=== PATIENT | female | born 1975 | race Caucasian/White ===

== ENCOUNTER → 2018-05-30 10:30 | Outpatient (CLI) | payer OTHER, SELFPAY ==
[2018-05-28 08:16] VITALS: BMI 27.5
--- NOTE | 2018-05-30 10:40 | US_ITS ---
STUDY: ULTRASOUND TRANSVAGINAL CLINICAL: Female, 43 years old. IUD placement TECHNIQUE: Transvaginal COMPARISON: None. FINDINGS: Normal uterine size measuring 9.5 x 4.8 x 4.4 cm in maximal craniocaudal dimension. There are no myometrial masses. Normal endometrial thickness measuring 4.4 mm. There are no endometrial masses, and there is no fluid in the endometrial cavity. Intrauterine contraceptive device identified, approximately 4.3 cm from the external os. There is a small nabothian cyst. Normal right ovary, measuring 2.9 x 2.2 x 2.1 cm. There are multiple follicles without a dominant cyst. Normal left ovary, measuring 2.5 x 2.1 x 1.8 cm. There are multiple follicles without a dominant cyst. There is no free fluid in the pelvis. Visualized urinary bladder is normal. US/Pelvic (Non ) IMPRESSION: 1. Intrauterine contraceptive device, as above. Electronically Signed: Lawrence Hearn MD at 12:38 EST , Service support ,
--- NOTE | 2018-05-30 10:40 | US_ITS ---
STUDY: ULTRASOUND TRANSVAGINAL CLINICAL: Female, 43 years old. IUD placement TECHNIQUE: Transvaginal COMPARISON: None. FINDINGS: Normal uterine size measuring 9.5 x 4.8 x 4.4 cm in maximal craniocaudal dimension. There are no myometrial masses. Normal endometrial thickness measuring 4.4 mm. There are no endometrial masses, and there is no fluid in the endometrial cavity. Intrauterine contraceptive device identified, approximately 4.3 cm from the external os. There is a small nabothian cyst. Normal right ovary, measuring 2.9 x 2.2 x 2.1 cm. There are multiple follicles without a dominant cyst. Normal left ovary, measuring 2.5 x 2.1 x 1.8 cm. There are multiple follicles without a dominant cyst. There is no free fluid in the pelvis. Visualized urinary bladder is normal. US/Transvaginal Non- IMPRESSION: 1. Intrauterine contraceptive device, as above. Electronically Signed: Lawrence Hearn MD at 12:38 EST , Service support ,
== END ==
PROVIDERS: Family Provider Family Medicine; PCP Family Medicine; Referring Provider Nurse Practitioner Women's Health; Visit Provider Nurse Practitioner Women's Health
DX: Z30.431 Encounter for routine checking of intrauterine contraceptive device (principal)
CPT/HCPCS: 76830; 76856

== ENCOUNTER → 2018-06-24 09:17 | Outpatient (CLI) | payer OTHER, SELFPAY ==
[2018-05-28 08:16] VITALS: BMI 27.5
[2018-06-04 13:02] VITALS: BMI 26.7
--- NOTE | 2018-06-24 09:26 | BI_ITS ---
MAMMOGRAPHY - BILATERAL SCREENING REASON FOR EXAM: Female, 43 years old. Routine annual screening examination. PERTINENT HISTORY: Non-contributory. TECHNIQUE: Digital bilateral breast davian (3D mammographic acquisition) in the CC and MLO projections. 2-D mediolateral oblique (MLO) and craniocaudad (CC) views of both breasts were obtained. CAD: Full Field Digital Mammography with Computer Added Detection was performed. COMPARISON: Comparison is made with prior outside examination dated March 08, 2016. FINDINGS: Breast Composition: There are scattered areas of fibroglandular density. There are no dominant masses or suspicious calcifications. Stable small bilateral axillary lymph nodes. No other significant abnormalities are identified. There has been no significant change since the prior study. BI/SCREEN MAMM (CAD) W/DAVIAN BILAT IMPRESSION: Stable bilateral screening mammogram. Yearly follow-up mammogram recommended. (A) ASSESSMENT CATEGORY: BIRADS Category 2: Benign. A letter regarding these results will be sent to the patient by the facility within 30 days. Approximately 10% of breast cancers are not detected by mammography. A normal mammogram should not delay biopsy of a clinically suspicious abnormality. [id number] Electronically Signed: Kj Armstrong, at 10:38 EST , Service support ,
== END ==
PROVIDERS: Family Provider Family Medicine; PCP Family Medicine; Referring Provider Nurse Practitioner Women's Health; Visit Provider Nurse Practitioner Women's Health
DX: Z12.31 Encounter for screening mammogram for malignant neoplasm of breast (principal)
CPT/HCPCS: 77063; 77067

== ENCOUNTER → 2018-07-01 08:03 | Outpatient (CLI) | payer OTHER, SELFPAY ==
[2018-06-04 13:02] VITALS: BMI 26.7
[2018-07-01 09:43] LABS: Free T3 2.8 pg/mL (2.18-3.98); T4 Free Direct 1.53 ng/dL (0.76-1.46); Thyroid Stim Hormone (TSH) 0.06 uIU/mL (0.358-3.74)
== END ==
LOC: PAVLAB 08:06
PROVIDERS: Family Provider Family Medicine; PCP Family Medicine; Referring Provider Family Medicine; Visit Provider Family Medicine
DX: E03.9 Hypothyroidism, unspecified (principal)
CPT/HCPCS: 36415; 84439; 84443; 84481

== ENCOUNTER 2018-07-02 08:48 | Day surgery (SDC) | payer OTHER, SELFPAY ==
[2018-06-04 13:02] VITALS: BMI 26.7
--- NOTE | 2018-07-01 11:41 | PCM.HPOB.BLA ---
- Problem List (1) Malpositioned IUD Status: Acute History and Physical Date of Admission: 07/02/18 Intake Vital Signs 06/04/18 Height 5 ft 11 in 06/04/18 Weight: 192 lb 06/04/18 Body Mass Index (BMI) 26.7 06/04/18 Blood Pressure 152/100 H Intake Visit Reasons: iud removal Senior Principal Required: No Allergies No Known Allergies Allergy (Verified 06/04/18 13:02) Medications Levothyroxine [Synthroid] 125 mcg PO DAILY 01/16/15 [History Confirmed 06/04/18] levonorgestrel 20 mcg/24 hr (5 years) intrauterine device 1 insert INTRAUTERINE ONCE 05/28/18 [History Confirmed 06/04/18] Is last menstrual period known: No Post menopausal: No Patient : No : No PFSH PFSH Medical History Hypothyroidism (Chronic) Surgical History History of cholecystectomy (Resolved) S/P laparoscopy (Resolved) s/p right leg surgery (Resolved) Family History Uncle Colon cancer Lung cancer Mother Diabetes Grandmother Diabetes Congestive heart failure Grandfather Diabetes Social History Smoking Status: Never smoker alcohol intake: current details: glass of wine nightly substance use type: does not use caffeine: Yes what type of physical activity do you participate in: none seatbelt use: always do you feel safe at home: Yes additional social history: - H Surgery Pregancy History 2 Elective abortions Hx Para 1 Spontaneous abortions Hx # Term Pregnancies Ectopic pregnancies Hx # Pregnancies Multiple births # of living children Past Pregnancies Del. Date Name GA/Weeks Outcome Route Bth Weight Gen Labor Lgth Anesthesia Del Locatn Provider FOB Unknown HPI iud removal: Details: KAVIN GUERRERO is a 43 year old who presents for preop appointment and attempt at iud removal. attempt was unsuccessful, therefore we will schedule her for hysteroscopic removal. ROS Const Constitutional: Reports system reviewed and no additional complaints, except as docu; denies chills, fever(s), weight gain or weight loss GI GI: Reports as per HPI; denies abdominal pain, bloating, constipation, cramping, nausea or vomiting : Reports as per HPI; denies urinary frequency, urinary incontinence, urinary urgency, vaginal discharge or vaginal dryness Exam Const General: cooperative, healthy appearing, comfortable, well developed Orientation: alert [facility] Head: normal to inspection Resp Effort & Inspection: normal respiratory effort GI Inspection: normal to inspection, non-distended Palpation: soft, no hepatosplenomegaly, no guarding External Female Exam: normal external appearance, normal appearance of the urethra Urethra: normal appearance of the urethra Speculum Exam - Vagina: normal appearance of the vagina, normal vaginal discharge, no lesions Speculum Exam - Cervix: nontender Bimanual Exam- Vagina & Uterus: normal bimanual exam, uterine size normal, uterine shape normal, No cervical tenderness, uterine mobility normal, uterine consistency normal, uterus non-tender Bimanual Exam- Adnexa, other: normal adnexae, no adnexal masses Assessment & Plan Problems 1. Other mechanical complication of intrauterine contraceptive device, subsequent encounter T83.39XD Plan plan hysteroscopic removal Coding Level of Care Code No Charge Diagnoses Other mechanical complication of intrauterine contraceptive device, subsequent encounter T83.39XD ??Mechanical complication type: other ??Encounter type: subsequent encounter UPDATE- I have seen the patient and performed any clinically relevant updates to the history and physical exam. Eve Tiwari MD
[2018-07-02] VITALS (7 sets, daily range): BP systolic 130–154; BP diastolic 78–94; PULSE 70–83; RESP 14–16; TEMP 37–37.3; O2SAT 98–100; BMI 26.7
[2018-07-02 09:56] LABS: Hematocrit 44.3 % (37-47); Hemoglobin 14.3 g/dl (12.0-15.0); Mean Corp Hgb Conc 32.3 g/gl (32-36); Mean Corpuscular Hgb 31.4 pg (27.0-32.0); Mean Corpuscular Volume 97.1 fL (81-99); Mean Platelet Vol. 10.8 fl (6.2-12.0); Platelet Count 264 K/mm3 (150-450); RBC Distribution Width CV 12.3 % (11.6-14.6); RBC Distribution Width SD 42.6 fl (35.1-43.9); Red Blood Count 4.56 M/mm3 (4.2-5.4); White Blood Count 5.5 K/mm3 (4.4-11.0)
[2018-07-02 09:59] LABS: Internal QC Validated? YES +Cl - CLEAR BKGD; Pregnancy, Urine Negative Negative
[2018-07-02 10:01] LABS: Scan Indicated on CBC? Y/N NO
--- NOTE | 2018-07-02 12:16 | OP.PCM_ITS ---
Problem List (1) Malpositioned IUD Status: Acute Report of Operation Date of Procedure: 07/02/18 Pre-Operative Diagnosis: malposition iud Post-Operative Diagnosis: same Surgery/Procedure Performed:: hysteroscopic removal iud Description of Surgical Findings:: Intrauterine IUD Type of Anesthesia:: Local MAC Special Medications: none Specimen's removed: iud Drains: none Estimated Blood Loss (mL): none Fluids Replaced: crystalloid Description of Procedure: Patient prepped and draped in the normal sterile fashion in dorsal lithotomy position. Her cervical block with 1% lidocaine was placed and cervix was dil ated to allow passage of a 5 mm hysteroscope. The IUD was noted to be intrauterine in the correct location with strings folded back on itself and therefore the strings were grasped and removed easily without complication. No other abnormalities were seen to the lining. Grafts/Implants Used: none - Complications none
--- NOTE | 2018-07-02 12:17 | DCINST_ITS ---
Discharge Diet: No Restrictions Discharge Activity: Return to Normal Activity, May Shower, May Take a Tub Bath Allergies/Adverse Reactions: Allergies No Known Allergies Allergy (Verified 06/25/18 12:52) Medications to take at Discharge Levothyroxine [Synthroid] 175 mcg PO DAILY 01/16/15 levonorgestrel 20 mcg/24 hr (5 years) intrauterine device 1 insert INTRAUTERINE ONCE 05/28/18 Primary Care Physician: Kingston Her MD [Primary Care Provider] - Test Results: Test results from this visit will be discussed in further detail at your follow- up appointment, if applicable. Please Follow Up With: Eve Tiwari MD - [phone]
== END 2018-07-02 13:06 | disposition home or self-care (01) ==
LOC: SDC 08:50 → AC 08:51
PROVIDERS: Family Provider Family Medicine; PCP Family Medicine; Referring Provider Obstetrics & Gynecology; Visit Provider Obstetrics & Gynecology
PROC: 0UDB8ZZ Extraction of Endometrium, Via Natural or Artificial Opening Endoscopic (ICD-10-PCS; CPT 58558; principal; 2018-07-02 10:15)
DX: T83.39XA Other mechanical complication of intrauterine contraceptive device, initial encounter (principal); E03.9 Hypothyroidism, unspecified
CPT/HCPCS: 00952; 58579; 36415; 81025; 85027; 86850; 86900; J7120; J2405

== ENCOUNTER → 2018-12-10 14:14 | Outpatient (CLI) | payer OTHER, SELFPAY ==
[2018-07-02 09:20] VITALS: BMI 26.7
[2018-12-10 16:12] LABS: Anion Gap 6 (5-15); BUN 11 mg/dL (7-18); BUN/Creat Ratio 14.7 RATIO (10-20); Calcium,Total 8.7 mg/dL (8.5-10.1); Chloride 109 mmol/L (98-107); Creatinine, Serum 0.75 mg/dL (0.55-1.02); EST Glomerular Filtration Rate 90 mL/min (>60); Est Glom Filt Rate - Afr Amer 109 mL/min (>60); Free T3 2.7 pg/mL (2.18-3.98); Glucose 82 mg/dL (74-106); Potassium 3.8 mmol/L (3.5-5.1); Sodium Level 142 mmol/L (136-145); T4 Total, Thyroxin 9.7 ug/dL (4.8-13.9); Thyroid Stim Hormone (TSH) 0.04 uIU/mL (0.358-3.74)
== END ==
PROVIDERS: Family Provider Family Medicine; PCP Family Medicine; Referring Provider Family Medicine; Visit Provider Family Medicine
DX: E03.9 Hypothyroidism, unspecified (principal); R03.0 Elevated blood-pressure reading, without diagnosis of hypertension
CPT/HCPCS: 36415; 80048; 84436; 84443; 84481

== ENCOUNTER → 2019-05-27 14:39 | Outpatient (CLI) | payer OTHER, SELFPAY ==
[2018-07-02 09:20] VITALS: BMI 26.7
[2019-05-27 15:17] LABS: Free T3 2.6 pg/mL (2.18-3.98); T4 Free Direct 1.24 ng/dL (0.76-1.46); Thyroid Stim Hormone (TSH) 0.08 uIU/mL (0.358-3.74)
== END ==
PROVIDERS: PCP Family Medicine; Referring Provider Family Medicine; Visit Provider Family Medicine
DX: E03.9 Hypothyroidism, unspecified (principal)
CPT/HCPCS: 36415; 84439; 84443; 84481

== ENCOUNTER → 2019-07-14 10:30 | Outpatient (CLI) | payer OTHER, SELFPAY ==
[2018-07-02 09:20] VITALS: BMI 26.7
--- NOTE | 2019-07-14 10:34 | BI_ITS ---
MAMMOGRAPHY - BILATERAL SCREENING REASON FOR EXAM: Female, 44 years old. Routine annual screening examination. PERTINENT HISTORY: Non-contributory. TECHNIQUE: Digital bilateral breast davian (3D mammographic acquisition) in the CC and MLO projections. 2-D mediolateral oblique (MLO) and craniocaudad (CC) views of both breasts were obtained. CAD: Full Field Digital Mammography with Computer Added Detection was performed. COMPARISON: Comparison is made with prior study dated June 24, 2018. FINDINGS: Breast Composition: There are scattered areas of fibroglandular density. There are no dominant masses or suspicious calcifications. Stable asymmetry of breast tissue where more breast tissue is seen in the upper outer quadrant of the left breast as compared to the right side. No other significant abnormalities are identified. There has been no significant change since the prior study. BI/SCREEN MAMM (CAD) W/DAVIAN BILAT IMPRESSION: Stable bilateral screening mammogram. Yearly follow-up mammogram recommended. (A) ASSESSMENT CATEGORY: BIRADS Category 2: Benign. A letter regarding these results will be sent to the patient by the facility within 30 days. Approximately 10% of breast cancers are not detected by mammography. A normal mammogram should not delay biopsy of a clinically suspicious abnormality. [id number] Electronically Signed: Kj Armstrong, at 12:39 EDT , Service support ,
== END ==
PROVIDERS: PCP Family Medicine; Referring Provider Family Medicine; Visit Provider Family Medicine
DX: Z12.31 Encounter for screening mammogram for malignant neoplasm of breast (principal)
CPT/HCPCS: 77063; 77067

== ENCOUNTER → 2020-01-17 16:58 | Outpatient (CLI) | payer OTHER, SELFPAY ==
[2020-01-17 08:59] VITALS: BMI 26.7
[2020-01-21 12:34] LABS: HPV APTIMA, High Risk Negative (Negative)
== END ==
PROVIDERS: PCP Family Medicine; Referring Provider Nurse Practitioner Women's Health; Visit Provider Nurse Practitioner Women's Health
DX: Z12.4 Encounter for screening for malignant neoplasm of cervix (principal)
CPT/HCPCS: 87624; 88175; G0145

== ENCOUNTER → 2020-05-01 09:56 | Outpatient (CLI) | payer OTHER, SELFPAY ==
[2020-01-17 08:59] VITALS: BMI 26.7
[2020-05-01 10:55] LABS: Microalbumin,Random Urine < 5.0 mg/L (NO RANGE EST.)
[2020-05-01 10:57] LABS: Anion Gap 5 (5-15); BUN 8 mg/dL (7-18); Calcium,Total 8.8 mg/dL (8.5-10.1); Chloride 109 mmol/L (98-107); Cholesterol 150 mg/dL (200); Creatinine, Serum 0.72 mg/dL (0.55-1.02); EST Glomerular Filtration Rate 93 mL/min (>60); Est Glom Filt Rate - Afr Amer 112 mL/min (>60); Glucose 106 mg/dL (74-106); High Density Lipoprotein 65 mg/dL; Potassium 4.1 mmol/L (3.5-5.1); Sodium Level 138 mmol/L (136-145); T4 Free Direct 1.37 ng/dL (0.76-1.46); Thyroid Stim Hormone (TSH) 0.13 uIU/mL (0.358-3.74); Triglycerides 61 mg/dL; Very Low Density Lipoprotein 12 mg/dL (5-40)
== END ==
PROVIDERS: PCP Family Medicine; Referring Provider Family Medicine; Visit Provider Family Medicine
DX: I10 Essential (primary) hypertension (principal); E03.9 Hypothyroidism, unspecified
CPT/HCPCS: 36415; 80048; 80061; 82043; 82570; 84439; 84443

== ENCOUNTER 2021-06-29 05:12 | Day surgery (SDC) | payer OTHER, SELFPAY ==
[2021-06-29] VITALS (12 sets, daily range): BP systolic 115–171; BP diastolic 63–93; PULSE 67–83; RESP 16–18; TEMP 36.4–36.6; O2SAT 98–100; BMI 30.7
--- NOTE | 2021-06-29 | EGD_PTH ---
PATIENT: KAVIN GUERRERO LOC: EN U#:[id number] AGE/SX: 46/F ROOM: RE06/29/[address]: Dr. Ab Blankenship MD : 1975 BED: DIS: 06/29/2021 SPEC #: [id number] RECD: 06/29/21 13:18 STATUS: MARLYS LAWSONJose #: [id number] GM: 06/29/21 00:[address]: Ab Blankenship DEPT: SURGICAL PATHOLOGY RECD BY: Fitz Patterson ENTERED: 06/29/21 13:18 SP TYPE: EGD BIOPSY OTHR DR: Dr. Kingston Her MD Tissues: A - Duodenum, NOS B - Gastric mucous membrane C - Esophageal mucous membrane D - Esophageal mucous membrane Procedures: Special Stain Group II Surgery Specimen Level IV Alcian Blue/PAS (control) HEADER OPERATION: EGD (MOD) PRE-OP DIAGNOSIS: GERD, screening TISSUE SUBMITTED: A ? Duodenum, B ? Antrum for H. pylori and path, C ? Distal esophagus, D ? Mid esophagus MICROSCOPIC DIAGNOSIS A. Duodenum, biopsy: No pathologic change. B. Gastric antrum, biopsy: Chronic gastritis. See comment. C. Distal esophagus, biopsy: Gastroesophageal junctional mucosa with chronic inflammation. Changes of reflux. No evidence of goblet cell metaplasia. See comment. D. Mid esophagus, biopsy: Consistent with eosinophilic esophagitis. AM:rony 07/02/2021 COMMENT B. The results of immunohistochemistry for Helicobacter pylori will be reported separately ([id number]). C. Alcian blue/PAS stain with matched control supports the above diagnosis. MICROSCOPIC DESCRIPTION Slides are reviewed. GROSS DESCRIPTION A - Received in fixative is one container labeled with the patient's name and designated duodenum. The specimen consists of one irregular fragment of light beard soft tissue that measures 0.4 x 0.3 x 0.1 cm. The specimen is totally submitted in one cassette. B - Received in fixative is one container labeled with the patient's name and designated antrum. The specimen consists of one irregular fragment of light beard soft tissue that measures 0.3 x 0.3 x 0.1 cm. The specimen is totally submitted in one cassette. C - Received in fixative is one container labeled with the patient's name and designated distal esophagus. The specimen consists of multiple irregular fragments of light beard soft tissue that in aggregate measure 2 x 0.5 x 0.1 cm. The specimen is totally submitted in one cassette. D - Received in fixative is one container labeled with the patient's name and designated mid esophagus. The specimen consists of two irregular fragments of light beard soft tissue that in aggregate measure 0.8 x 0.2 x 0.1 cm. The specimen is totally submitted in one cassette. / SJ:rg 06/29/2021 TC:3 CPT: 47811 x4, 70110
[2021-06-29] MEDS: Lactated Ringers 1,000 ML 15 ML IV (05:40)
--- NOTE | 2021-06-29 05:41 | PCM.HP.BLA ---
History and Physical Date of Admission: 06/29/21 Intake Visit Reasons: Gastroesophageal reflux disease (GERD) Chief Complaint: GERD Pharmaceutical Analyst Required: No Is patient in pain?: No Allergies No Known Allergies Allergy (Verified 06/20/21 12:30) Medications amlodipine 5 mg tablet 5 mg PO DAILY 01/17/20 [History Confirmed 06/20/21] levonorgestrel-ethinyl estradiol 0.1 mg-20 mcg tablet 1 tab PO QDAY 90 Days #90 tab 04/04/21 [Rx Confirmed 06/20/21] levothyroxine 125 mcg tablet 175 mcg PO .every other day tab 06/20/21 [History Confirmed 06/20/21] levothyroxine 200 mcg capsule 200 mcg PO .every other day cap 06/20/21 [History Confirmed 06/20/21] quinapril 10 mg tablet 10 mg PO QHS tab 06/20/21 [History Confirmed 06/20/21] [facility] Medical History (Updated 06/20/21 @ 12:[address] Ab Blankenship MD) Encounter for IUD removal Hypertension Hypothyroidism Surgical History History of cholecystectomy S/P laparoscopy s/p right leg surgery Family History (Updated 06/20/21 @ 12:29 by Naty Friday) Uncle Colon cancer Lung cancer Mother Diabetes Grandmother Diabetes Congestive heart failure Cancer skin CA Grandfather Diabetes Social History Smoking Status: Never smoker alcohol intake: current details: glass of wine nightly substance use type: does not use caffeine: Yes what type of physical activity do you participate in: none seatbelt use: always do you feel safe at home: Yes additional social history: - [facility] Surgery HPI HPI HPI: KAVIN GUERRERO, is a 46 F who presents to the office today for surgical consultation regarding intractable reflux symptoms. She has significant heartburn symptoms. Has chronic cough with intermittent wheezing. This is been ongoing for at least 5 years. To date she has not had any studies yet. She has tried Tums and Carafate and omeprazole in the past all with incomplete resolution. Tomato products and alcohol and citrus foods all aggravate her situation. She is recently found that taking apple cider vinegar helps resolve some of the discomfort. She has recently had a very significant nonproductive irritated cough that is gone on for multiple weeks. She also has noticed some intermittent wheezing. She does not use tobacco. Previous abdominal surgery includes a remote laparoscopic cholecystectomy in 2006. When she was 21 she had an exploratory laparoscopy for endometriosis. An incidental ovarian cyst was identified. Her most recent surgical procedure was a removal of an IUD. She does note that her symptoms have increased with weight gain. ROS General General: Yes weight change; No appetite, fatigue, colon cancer, breast cancer or weakness Additional Details: Gain HEENT HEENT: No difficulty swallowing, eye injury, eye surgery, swollen glands or hoarseness Endo Endocrine: Yes thyroid disease; No diabetes mellitus, thyroid cancer, Hair loss, heat intolerance or cold intolerance Skin Skin: No rash or changing moles Musc Musculoskeletal: No back problems, arthritis, rheumatoid arthritis, gout or joint pain Cardio Cardiovascular: Yes high blood pressure; No murmur, pacemaker, heart disease, atrial fibrillation, heart attack, heart stent, palpitations, shortness of breat with exertion or chest pain Psych Psychiatric: No depression, anxiety or hearing voices Resp Respiratory: No shortness of breath, No sleep apnea, No cough, No COPD, No asthma, No emphysema and No wheezing Gastro Gastrointestinal: Yes abdominal pain, No nausea or vomiting, No diarrhea, No constipation, No blood in stool, No acid reflux, No hemorrhoids, No ulcers, No gallbladder problem and No black,tarry stools Additional Details: Epigastric abdominal pain John Hematologic: No blood thinners, No blood disorders, No bleeding, No anemia and No blood clots Neuro Neurologic: No system reviewed and no additional complaints, except as documented, No as per HPI, No abnormal gait, No abnormal hearing, No abnormal movements, No abnormal speech, No behavioral changes, No burning sensations, No confusion, No convulsions, No disequilibrium, No dizziness, No localized weakness, No frequent falls, No headache(s), No lack of coordination, No loss of vision, No memory loss, No numbness, No other visual disturbances, No radicular pain, No restless legs, No sensory deficit, No syncope, No tingling, No tremor(s), No weakness and No other Exam Const General: cooperative, healthy appearing and no acute distress Orientation: alert, awake and oriented x3 Eyes General: appearance normal, both eyes and all related structures Resp Other: Clear with reasonable inspiration, intermittent scattered inspiratory wheeze noted Cardio Rate: regular rate Rhythm: regular rhythm GI Palpation: soft and no hepatosplenomegaly Other: Nontender Musc Cervical Spine: normal cervical lordosis Skin General: no rashes or lesions noted Neuro General: patient alert and patient oriented x3 Extrem General: no calf tenderness Psych Appearance: grossly normal Assessment and Plan Assessment and Plan (1) Gastroesophageal reflux disease: Qualifiers: Esophagitis presence: esophagitis presence not specified Qualified Code(s): K21.9 - Gastro-esophageal reflux disease without esophagitis (2) Screening for intestinal cancer: Status: Acute Plan Details Other Medications: Discontinued: sulfamethoxazole-trimethoprim 800-160 mg Discontinued Reason: By Stop Date 1 tab PO BID 3 days 6 tabs 0RF oxycodone-acetaminophen 5-325 mg Discontinued Reason: Order Completed 1 - 2 tabs PO Q6H PRN PRN 30 tabs Pain Comments Comments: 46-year-old female. She has a family history of the father had a colon polyp. She has never had a colonoscopy. There are no current lower GI symptoms of which she is noting. She has had multiple years of reflux symptoms and unfortunately the symptoms have escalated recently. She now has significant intractable retrosternal heartburn type pain and a severe nonproductive chronic cough. Findings are highly suspicious for reflux esophagitis. Suspicious for possible hiatal hernia. Presence of H. pylori not determined. She has been on xhni-ocp-alsycth medications in the past which have included omeprazole therapy 40 mg daily without relief. She is also previously been on Carafate as well. She may very well be a candidate for future surgical reflux procedure. Our current plan endoscopy will be an attempt to better identify that issue. She has not had Covid-19 and she is fully vaccinated. I propose for her a esophagogastroduodenoscopy with possible biopsy and consideration for screening colonoscopy with possible biopsy or polypectomy as indicated. She is aware of technique, benefit, risk, alternatives. She has had an opportunity to ask and have questions answered. A final notice that she was reminded that she needs to update her screening mammography. Copy: Dr. Kingston Blankenship M.D., F.A.C.S. I have re-examined the patient. There are no clinical changes since date of exam.
--- NOTE | 2021-06-29 06:30 | IMM_PTH ---
PATIENT: KAVIN GUERRERO LOC: EN U#:[id number] AGE/SX: 46/F ROOM: RE06/29/[address]: Dr. Ab Blankenship MD : 1975 BED: DIS: 06/29/2021 SPEC #: [id number] RECD: 06/29/21 13:42 STATUS: MARLYS BRIGITTE #: [id number] GM: 06/29/21 06:[address]: Ab Blankenship DEPT: IMMUNOHISTOCHEMISTRY RECD BY: Lyly Mcdonough ENTERED: 06/29/21 13:43 SP TYPE: IMMUNO OTHR DR: Dr. Kingston Her MD Tissues: B - Stomach, NOS Procedures: H Pylori (initial) PHYSICIAN & INSTITUTION [place] [id number] SPECIMEN INFORMATION: Tissue Source: B - Antrum Clinical Info: GERD, screening Specimen Number: [id number] CPT code: 37430 METHODOLOGY: Deparaffinized sections of prefer/formalin-fixed tissue or PAP/DQ stained slides are incubated with monoclonal/polyclonal antibodies/oligonucleotide probes. Localization is made via biotin free immunoperoxidase method. Appropriate controls are performed and reacted as expected. Results on target cell population are indicated in the following table: RESULTS: ANTIBODY / CLONE RESULT Block B H Pylori (polyclonal) negative These tests were developed and their performance characteristics determined by [facility]. They may not have been cleared or approved by the [place].S. Food and Drug Administration. The FDA has determined that such clearance or approval is not necessary. INTERPRETATION: B. Antrum biopsy: Negative for Helicobacter pylori organisms. AM:rony 07/02/2021
[2021-06-29] MEDS: Midazolam 5 MG/ML Syringe ×2 (06:35→06:39)
[2021-06-29] MEDS: DiphenhydrAMINE 50 MG/ML Syringe (06:42)
--- NOTE | 2021-06-29 06:59 | OP.EGD_ITS ---
Patient Name: Roseann Diaz Procedure Date: 06/29/2021 6:21 AM Date of : 1975 Age: 46 Procedure: Upper GI endoscopy Indications: Suspected gastro-esophageal reflux disease Providers: Ab Blankenship MD Medicines: Midazolam 6 mg IV, Meperidine 100 mg IV, Diphenhydramine 25 mg IV Complications: No immediate complications. Procedure: Pre-Anesthesia Assessment: - Prior to the procedure, a History and Physical was performed, and patient medications and allergies were reviewed. The patient's tolerance of previous anesthesia was also reviewed. The risks and benefits of the procedure and the sedation options and risks were discussed with the patient. All questions were answered, and informed consent was obtained. Prior Anticoagulants: The patient has taken no previous anticoagulant or antiplatelet agents. ASA Grade Assessment: II - A patient with mild systemic disease. After reviewing the risks and benefits, the patient was deemed in satisfactory condition to undergo the procedure. After obtaining informed consent, the endoscope was passed under direct vision. Throughout the procedure, the patient's blood pressure, pulse, and oxygen saturations were monitored continuously. The Endoscope was introduced through the mouth, and advanced to the second part of duodenum. The upper GI endoscopy was accomplished without difficulty. The patient tolerated the procedure well. Scope In: 6:40:12 AM Scope Out: 6:51:23 AM Total Procedure Duration Time 0 hours 11 minutes 11 seconds Findings: The mid esophagus was normal. Biopsies were taken with a cold forceps for histology. LA Grade A (one or more mucosal breaks less than 5 mm, not extending between tops of 2 mucosal folds) esophagitis with no bleeding was found 40 cm from the incisors. Biopsies were taken with a cold forceps for histology. A 3 cm hiatal hernia was present. The entire examined stomach was normal. Biopsies were taken with a cold forceps for histology of the antrum The examined duodenum was normal. Biopsies were taken with a cold forceps for histology. Impression: - Normal mid esophagus. Biopsied. - LA Grade A reflux esophagitis. Biopsied. - 3 cm hiatal hernia. - Normal stomach. Biopsied. - Normal examined duodenum. Biopsied. Recommendation: - Discharge patient to home. - Resume previous diet. - Continue present medications. - Use Prilosec (omeprazole) 40 mg PO daily. Consider future hiatal hernia repair/reflux procedure Procedure Code(s): --- Professional --- 40598, LT, Esophagogastroduodenoscopy, flexible, transoral; with biopsy, single or multiple Diagnosis Code(s): --- Professional --- K21.0, Gastro-esophageal reflux disease with esophagitis K44.9, Diaphragmatic hernia without obstruction or gangrene CPT copyright 2017 [employer]. All rights reserved. The codes documented in this report are preliminary and upon sap bods developer review may be revised to meet current compliance requirements. Ab Blankenship MD 06/29/2021 6:58:39 AM This report has been signed electronically. Number of Addenda: 0 Note Initiated On: 06/29/2021 6:21 AM
--- NOTE | 2021-06-29 07:00 | OP.CCLET_ITS ---
06/29/2021 [place] Her [address] [place] [address] Re : Upper GI endoscopy procedure for Roseann Diaz Dear Dr. Her This procedure was performed on Tuesday, June 29, 2021. My impressions and recommendations are as follows: Impressions : - Normal mid esophagus. Biopsied. - LA Grade A reflux esophagitis. Biopsied. - 3 cm hiatal hernia. - Normal stomach. Biopsied. - Normal examined duodenum. Biopsied. Recommendations : - Discharge patient to home. - Resume previous diet. - Continue present medications. - Use Prilosec (omeprazole) 40 mg PO daily. Consider future hiatal hernia repair/reflux procedure My findings are described in the full procedure note, which is enclosed. If I can be of further assistance, please feel free to contact me at Doctor phone number(s): Work: . Sincerely, Ab Blankenship MD 06/29/2021 6:58:39 AM This report has been signed electronically.
== END 2021-06-29 23:59 | disposition home or self-care (01) ==
LOC: EN 05:15 → AC 05:17
PROVIDERS: PCP Family Medicine; Referring Provider Family Medicine; Visit Provider Surgery
PROC: (CPT 43239; principal; 2021-06-29 06:25)
DX: K21.00 Gastro-esophageal reflux disease with esophagitis, without bleeding (principal); K29.50 Unspecified chronic gastritis without bleeding; K44.9 Diaphragmatic hernia without obstruction or gangrene; Z80.0 Family history of malignant neoplasm of digestive organs
CPT/HCPCS: 43239; 88305; 88313; 88342; 99152; 99153; J7120

== ENCOUNTER 2021-07-31 07:53 | Outpatient (CLI) | payer OTHER, SELFPAY ==
[2021-07-31 08:38] LABS: Microalbumin,Random Urine 6.4 mg/L (NO RANGE EST.); Microalbumin:Creatinine Ratio 9.7 mg/g CRE (<30 mg/g CRE)
[2021-07-31 08:50] LABS: AST(SGOT) 20 U/L (15-37); Alanine Aminotransfer ALT/SGPT 40 U/L (13-56); Albumin, Serum 3.5 g/dL (3.2-5.0); Alkaline Phosphatase 73 U/L (45-117); Anion Gap 2 (5-15); BUN 13 mg/dL (7-18); BUN/Creat Ratio 18.4 RATIO (10-20); Calcium,Total 8.3 mg/dL (8.5-10.1); Chloride 109 mmol/L (98-107); Creatinine, Serum 0.71 mg/dL (0.55-1.02); EST Glomerular Filtration Rate 95 mL/min (>60); Est Glom Filt Rate - Afr Amer 115 mL/min (>60); Globulin 3.6 g/dL (2.2-4.2); Glucose 104 mg/dL (74-106); Potassium 4.1 mmol/L (3.5-5.1); Protein, Total 7.1 g/dL (6.4-8.2); Sodium Level 140 mmol/L (136-145); T4 Free Direct 1.29 ng/dL (0.76-1.46); Thyroid Stim Hormone (TSH) 0.24 uIU/mL (0.358-3.74)
== END 2021-07-31 23:59 | disposition home or self-care (01) ==
LOC: PAVLAB 07:54
PROVIDERS: PCP Family Medicine; Referring Provider Family Medicine; Visit Provider Family Medicine
DX: I10 Essential (primary) hypertension (principal); E03.9 Hypothyroidism, unspecified
CPT/HCPCS: 36415; 80053; 82043; 82570; 84439; 84443

== ENCOUNTER → 2021-09-19 | Outpatient (CLI) | payer OTHER, SELFPAY ==
--- NOTE | 2021-09-19 07:37 | BI_ITS ---
MAMMOGRAPHY - BILATERAL SCREENING REASON FOR EXAM: Female, 46 years old. Routine annual screening examination. PERTINENT HISTORY: Non-contributory. TECHNIQUE: Digital bilateral breast kevin (3D mammographic acquisition) in the CC and MLO projections. 2-D mediolateral oblique (MLO) and craniocaudad (CC) views of both breasts were obtained. CAD: Full Field Digital Mammography with Computer Added Detection was performed. COMPARISON: Screening mammogram from 07/14/2019, 06/24/2018. FINDINGS: Breast Composition: There are scattered areas of fibroglandular density. There are no dominant masses or suspicious calcifications. Stable areas of asymmetry in the breast tissues in the bilateral upper outer quadrants, greater on the left. No other significant abnormalities are identified. BI/SCREENING MAMM (CAD), BILAT IMPRESSION: Stable bilateral screening mammogram. Yearly follow-up mammogram recommended. (A) ASSESSMENT CATEGORY: BIRADS Category 2: Benign. A letter regarding these results will be sent to the patient by the facility within 30 days. Approximately 10% of breast cancers are not detected by mammography. A normal mammogram should not delay biopsy of a clinically suspicious abnormality. [id number] Electronically Signed: Davonte Arreguin, at 17:46 EDT ,
== END | disposition home or self-care (01) ==
LOC: OPBI 07:33
PROVIDERS: PCP Family Medicine; Visit Provider Family Medicine
DX: Z12.31 Encounter for screening mammogram for malignant neoplasm of breast (principal)
CPT/HCPCS: 77067

== ENCOUNTER → 2022-01-28 | Outpatient (CLI) | payer OTHER, SELFPAY ==
[2022-01-28 09:15] LABS: Absolute Lymphocyte Count 1.18 X10^3/uL (0.83-4.51); Absolute Neutrophil Count 2.8 X10^3/uL (2.0-7.7); Basophil# 0.04 X10^3/uL; Basophil% 0.9 % (0-1); Eosinophil# 0.08 X10^3/uL; Eosinophils% 1.7 % (0-5); Hemoglobin 13.6 g/dL (12.0-15.0); Lymphocyte # 1.18 X10^3/ul (0.83-4.51); Lymphocyte % 25.7 % (19-41); Mean Corpuscular Hgb 32.9 pg (27.0-32.0); Mean Corpuscular Volume 96.9 fL (81-99); Mean Platelet Vol. 10.9 fl (6.2-12.0); Monocyte# 0.47 X10^3/uL; Monocyte% 10.2 % (0-10); NRBC Flagged by Analyzer 0 % (0-5); Neutrophil # 2.81 X10^3/uL (2.7-7.7); Neutrophil % 61.3 % (47-70); Platelet Count 258 K/mm3 (150-450); RBC Distribution Width CV 12.5 % (11.6-14.6); RBC Distribution Width SD 44.4 fl (35.1-43.9); Red Blood Count 4.13 M/mm3 (4.2-5.4); White Blood Count 4.6 K/mm3 (4.4-11.0)
[2022-01-28 09:37] LABS: Microalbumin:Creatinine Ratio 5.9 mg/g CRE (<30 mg/g CRE)
[2022-01-28 09:57] LABS: ALB/GLOB Ratio 0.8 RATIO (0.9-2.4); AST(SGOT) 16 U/L (15-37); Alanine Aminotransfer ALT/SGPT 27 U/L (13-56); Albumin, Serum 3.3 g/dL (3.2-5.0); Alkaline Phosphatase 73 U/L (45-117); Anion Gap 6 (5-15); BUN 18 mg/dL (7-18); BUN/Creat Ratio 23.9 RATIO (10-20); CRP 4.06 mg/L (0.0-3.0); Calcium,Total 8.8 mg/dL (8.5-10.1); Chloride 111 mmol/L (98-107); Cholesterol 139 mg/dL (200); Creatinine, Serum 0.75 mg/dL (0.55-1.02); EST Glomerular Filtration Rate 88 mL/min (>60); Est Glom Filt Rate - Afr Amer 107 mL/min (>60); Globulin 3.9 g/dL (2.2-4.2); Glucose 111 mg/dL (74-106); High Density Lipoprotein 56 mg/dL; Potassium 4.2 mmol/L (3.5-5.1); Protein, Total 7.2 g/dL (6.4-8.2); Sodium Level 142 mmol/L (136-145); Thyroid Stim Hormone (TSH) 0.04 uIU/mL (0.358-3.74); Triglycerides 44 mg/dL; Very Low Density Lipoprotein 9 mg/dL (5-40)
[2022-01-28 09:58] LABS: Erythrocyte Sedimentation Rate 7 mm/hr (0-30)
[2022-01-29 13:08] LABS: Anti-Centromere B Ab <0.2 AI (0.0-0.9); Anti-Chromatin <0.2 AI (0.0-0.9); Anti-Jo <0.2 AI (0.0-0.9); Anti-Scleroderma-70 AB <0.2 AI (0.0-0.9); RNP Ab <0.2 AI (0.0-0.9); SJOGREN'S Anti-SS-A test < 0.2 AI (0.0-0.9); SJOGREN'S Anti-SS-B test < 0.2 AI (0.0-0.9); Smith Ab <0.2 AI (0.0-0.9)
[2022-01-29 15:08] LABS: Endomysial Antibody IgA Negative (Negative)
[2022-01-31 12:49] LABS: Immunoglobulin A 171 mg/dL (87-352); t-Transglutaminase IgA <2 U/mL (0-3)
[2022-01-31 13:26] LABS: Anti-dsDNA Ab 1 IU/mL (0-9)
[2022-02-03 18:07] LABS: Albumin 3.7 g/dL (2.9-4.4); Alpha-1-Globulins 0.3 g/dL (0.0-0.4); Alpha-2-Globulins 0.7 g/dL (0.4-1.0); Cytoplasmic Ab (C-ANCA) <1:20 titer (Neg:<1:20); Gamma Globulin 1.2 g/dL (0.4-1.8); Immunoglobulin A 173 mg/dL (87-352); Immunoglobulin G 1128 mg/dL (586-1602); Immunoglobulin M 129 mg/dL (26-217); PROEL- TOTAL PROTEIN 6.9 g/dL (6.0-8.5)
[2022-02-04 16:16] LABS: Gastrin, Serum 37 pg/mL (0-115); Immunoglobulin E 26 IU/mL (6-495); Perinuclear Ab (P-ANCA) <1:20 titer (Neg:<1:20)
== END | disposition home or self-care (01) ==
LOC: PAVLAB 08:37
PROVIDERS: Internal Medicine Gastroenterology; PCP Family Medicine; Referring Provider Family Medicine; Visit Provider Family Medicine
DX: I10 Essential (primary) hypertension (principal)
CPT/HCPCS: 36415; 80053; 80061; 82043; 82570; 82784; 82785; 82941; 83516; 84165; 84439; 84443; 85025; 85652; 86140; 86225; 86235; 86255; 86256; 86334

== ENCOUNTER → 2023-06-30 | Outpatient (CLI) | payer OTHER, SELFPAY ==
--- OUTSIDE RECORDS SUMMARY | 2023-06-30 09:49 | XMS RPT_ITS | CCD ---
Author Name Unknown Address [address] [place] [address] Organization [facility] Care Team Providers Care Hand Coke Drawer Name Role Phone Flora Small LPN Unavailable Unavailab Migdalia Hoffman NP Unavailable Jeana Welch Unavailable Unavailable Jeana Welch Unavailable Unavailable Jeana Welch Unavailable Unavailable Flora Small LPN Unavailable Unavailab Flora Bernal LPN Unavailable Unavailab DAMIAN Beltre Unavailable Unavailable Medications Completed/Discontinued Medications Medication Drug Class(es) Dates Sig (Normalized) Sig (Original) azithromycin 250 mg oral tablet (15 sources) Macrolide Antimicrobial Start: 01-27-2017 End: 02-26-2017 AZITHROMYCIN 250 MG TABS 2 tablets on day 1, then 1 tablet daily on days 2-5 AZITHROMYCIN [id number] Cristobal ALMAZAN levonorgestrel 0.571349 mg/hr intrauterine system (6 sources) Progestin, Progestin-containin g Intrauterine Device Start: 02-26-2017 MIRENA (52 MG) 20 MCG/24HR IUD LEVONORGESTREL [id number] Migdalia Portillo NP levothyroxine sodium 0.2 mg oral tablet (6 sources) l-Thyroxine Start: 02-26-2017 LEVOTHYROXINE SODIUM 200 MCG TABS LEVOTHYROXINE SODIUM [id number] Midgalia Portillo NP Problems Active Problems Problem Classification Problem Date Documented Date Episodic/Chronic Unclassified (6 sources) Screening for malignant neoplasm of cervix ; Translations: [Encounter for screening for malignant neoplasm of cervix] Onset: 02-26-2017 02-26-2017 Unclassified (6 sources) Venereal disease screening ; Translations: [Encounter for screening for infections with a predominantly sexual mode of transmission] Onset: 02-26-2017 02-26-2017 Unclassified (6 sources) Screening mammography ; Translations: [Encounter for screening mammogram for malignant neoplasm of breast] Onset: 02-26-2017 02-26-2017 Unclassified (6 sources) Gynecologic examination ; Translations: [Encounter for gynecological examination (general) (routine) without abnormal findings] Onset: 02-26-2017 02-26-2017 Past or Other Problems Problem Classification Problem Date Documented Da te Episodic/Chronic Other circulatory disease (1 source) Elevated blood-pressure reading, without diagnosis of hypertension; Translations: [Elevated blood-pressure reading, without diagnosis of hypertension] Onset: 06-20-2016 Episodic Other upper respiratory infections (18 sources) Acute maxillary sinusitis; Translations: [Pharyngitis] Onset: 01-27-2017 01-27-2017 Episodic Otitis media and related conditions (9 sources) Otitis media; Translations: [Otitis media, unspecified, unspecified ear] Onset: 01-27-2017 01-27-2017 Episodic Results Test Name Value Interpretation Reference Range Facil ity Vital Signs Date Time Vital Sign Value Performing Clinician Facility 02-26-2017 08:03-0400 BMI (Body Mass Index) 27.67 kg/m2 Migdalia Portillo NP [facility] 02-26-2017 08:03-0400 Body Temperature 97.4 [degF] Migdalia Portillo [facility] 02-26-2017 08:03-0400 Body Temperature 97.39 [degF] [facility] 02-26-2017 08:03-0400 BP Diastolic 89 mm[Hg] Migdalia Portillo [facility] 02-26-2017 08:03-0400 BP Systolic 148 mm[Hg] Migdalia Portillo [facility] 02-26-2017 08:03-0400 Height 180.34 cm Migdalia Portillo [facility] 02-26-2017 08:03-0400 Pulse (Heart Rate) 72 /min Migdalia Portillo [facility] 02-26-2017 08:03-0400 Respiratory Rate 16 /min Migdalia Portillo [facility] 02-26-2017 08:03-0400 Weight 89.99 kg Migdalia Bandar [facility] Encounters Encounter Date Encounter Type Care Provider Facility Start: 06-20-2016 End: 06-20-2016 Patient encounter procedure DAMIAN KING [facility] Plan of Treatment Date Care Activity Detail Author Start: 02-26-2017 End: 02-26-2017 *GC/Chlamydia *GC/Chlamydia [facility] Start: 02-26-2017 End: 02-26-2017 Mammogram, screening Mammogram, Screening, both breasts [facility] Start: 02-26-2017 End: 02-26-2017 Appointment Appointment [facility] Start: 01-27-2017 End: 01-27-2017 Appointment Appointment [facility] Work Phone: Patient Education [facility] Work Phone: Summary Purpose Family History No Family History Records Found Advance Directives No Advanced Directives Records Found Additional Source Comments INFORMATION SOURCE (unrecogn ized section and content) FOR RECORDS PERTAINING TO PATIENTS WHO ARE OR HAVE BEEN ENROLLED IN A CHEMICAL DEPENDENCY/SUBSTANCEABUSE PROGRAM, SOME INFORMATION MAY BE OMITTED. This clinical summary was aggregated from multiple sources. Caution should be exercised in using it in the provision of clinical care. This summary normalizes information from multiple sources, and as a consequence, information in this document may materially change the coding, format and clinical context of patient data. In addition, data may be omitted in some cases. CLINICAL DECISIONS SHOULD BE BASED ON THE PRIMARY CLINICAL RECORDS. [facility] [employer] [employer] provides no warranty or guarantee of the accuracy or completeness of information in this document.
[2023-06-30 10:10] LABS: Anion Gap 4 (5-15); BUN 13 mg/dL (7-18); BUN/Creat Ratio 16.3 RATIO (10-20); Chloride 109 mmol/L (98-107); EST Glomerular Filtration Rate 82 mL/min (>60); Est Glom Filt Rate - Afr Amer 99 mL/min (>60); Free T3 2.5 pg/mL (2.18-3.98); Glucose 103 mg/dL (74-106); Potassium 4.1 mmol/L (3.5-5.1); Sodium Level 139 mmol/L (136-145); T4 Free Direct 1.14 ng/dL (0.76-1.46); Thyroid Stim Hormone (TSH) 0.66 uIU/mL (0.358-3.74)
[2023-06-30 17:29] LABS: Xtra Tube EP Lab EXTRA TUBE
== END | disposition home or self-care (01) ==
PROVIDERS: PCP Family Medicine; Referring Provider Family Medicine; Visit Provider Family Medicine
DX: E03.9 Hypothyroidism, unspecified (principal); I10 Essential (primary) hypertension
CPT/HCPCS: 36415; 80048; 84439; 84443; 84481

== ENCOUNTER → 2023-10-20 | Outpatient (CLI) | payer OTHER, SELFPAY ==
[2023-10-24 11:09] LABS: HPV APTIMA, High Risk Negative (Negative)
== END | disposition home or self-care (01) ==
LOC: LABSPEC 14:46
PROVIDERS: PCP Family Medicine; Referring Provider Obstetrics & Gynecology; Visit Provider Obstetrics & Gynecology
DX: Z12.4 Encounter for screening for malignant neoplasm of cervix (principal)
CPT/HCPCS: 87624; 88175; G0145

== ENCOUNTER → 2023-10-28 | Outpatient (CLI) | payer OTHER, SELFPAY ==
--- NOTE | 2023-10-28 08:26 | BI_ITS ---
MAMMOGRAPHY - BILATERAL SCREENING 3-D TOMOSYNTHESIS REASON FOR EXAM: Female, 48 years old. screening mammogram PERTINENT HISTORY: No significant family history. TECHNIQUE: 2-D mammograms and 3-D Tomosynthesis of the breast (s) were performed. CAD was performed. COMPARISON: 09/19/2021 FINDINGS: The breast composition is composed of scattered fibroglandular density. Scattered benign calcifications are seen. No dense spiculated masses or suspicious microcalcifications are identified. No architectural distortion is identified. There is no skin thickening or retraction. There has been no significant change since the prior study. BI/SCRN MAMM (CAD)W/DAVIAN BILAT IMPRESSION: No mammographic signs of malignancy. Routine yearly mammograms recommended. ASSESSMENT CATEGORY: BIRADS Category 1: Negative. A letter regarding these results will be sent to the patient by the facility within 30 days. FOLLOW UP RECOMMENDATION: Yearly follow up mammogram recommended. (A) Approximately 10% of breast cancers are not detected by mammography. A normal mammogram should not delay biopsy of a clinically suspicious abnormality. Electronically Signed: Richard Cervantes MD at 9:46 EDT ,
== END | disposition home or self-care (01) ==
LOC: OPBI 08:26
PROVIDERS: PCP Family Medicine; Referring Provider Obstetrics & Gynecology; Visit Provider Obstetrics & Gynecology
DX: Z12.31 Encounter for screening mammogram for malignant neoplasm of breast (principal)
CPT/HCPCS: 77063; 77067

== ENCOUNTER 2023-11-12 12:18 | Day surgery (SDC) | payer OTHER, SELFPAY ==
[2023-11-12] VITALS (8 sets, daily range): BP systolic 104–144; BP diastolic 85–106; PULSE 76–96; RESP 14–16; TEMP 36.4–36.5; O2SAT 99–100; BMI 28.9
--- NOTE | 2023-11-12 12:39 | HP.PCM_ITS ---
[facility] - General General Date of Service: 11/12/23 Chief Complaint: Screening for intestinal cancer [facility] Narrative KAVIN GUERRERO, is a 48 F who presents for screening colonoscopy. She presents via open access. She has not had a previous examination. Family history only notable for an uncle had colon cancer. The patient does have known reflux disease with a 3 cm hiatal hernia and mild gastritis and mild reflux esophagitis identified on endoscopy in 2021. That suggested some eosinophilic esophagitis in the mid esophagus but that was not identified distally. This was indeterminate and was not specifically treated. The patient has had a long-term her history of GI spastic problems. She went on a 10-day clear liquid fast with sudden improvement in current symptomatology. No bright red blood per rectum or melena. Her health otherwise has been stable. Blood pressure has been stable on medication. [facility] Medical History (Updated 11/07/23 @ 14:36 by Arielle Bay) Wears glasses Alcohol use Thyroid disease Gastric reflux History of hiatal hernia Non-smoker Cardiology follow-up encounter Encounter for IUD removal Hypertension Hypothyroidism Home Medications ?Medication ?Instructions ?Recorded ?Last Taken ?Type amlodipine 5 mg tablet 5 mg PO DAILY 01/17/20 06/29/21 History levothyroxine 125 mcg tablet 175 mcg PO .every other day 06/20/21 Unknown History levothyroxine 200 mcg capsule 200 mcg PO .every other day 06/20/21 Unknown History quinapril 10 mg tablet 10 mg PO QHS 06/20/21 Unknown History indapamide 2.5 mg tablet 2.5 mg PO QAM 10/20/23 Unknown History levonorgestrel-ethinyl estradiol 1 tab PO QDAY #84 tabs 10/20/23 Unknown Rx 0.1 mg-20 mcg tablet (Aviane) metoprolol succinate 50 mg 50 mg PO QHS 10/20/23 Unknown History tablet,extended release 24 hr Allergy/AdvReac Type Severity Reaction Status Date / Time No Known Allergies Allergy Verified 11/07/23 14:27 Family History Uncle Colon cancer Lung cancer Mother Diabetes Grandmother Diabetes Congestive heart failure Cancer skin CA Grandfather Diabetes Surgical History s/p right leg surgery S/P laparoscopy History of cholecystectomy Social History (Updated 10/20/23 @ 13:13 by Yasmeen Cheung) Smoking Status: Never smoker alcohol intake: current details: glass of wine nightly substance use type: does not use caffeine: Yes what type of physical activity do you participate in: none seatbelt use: always do you feel safe at home: Yes additional social history: - [facility] ROS Constitutional Constitutional: Reports systems reviewed and no addt'l complaints, except as documented Cardiovascular Cardiovascular: Denies chest pain Respiratory/Chest Respiratory/Chest: Denies shortness of breath at rest Gastrointestinal Gastrointestinal: Denies abdominal pain, change in bowel habits, hematochezia or melena Physical Exam Const alert, oriented x3 and no apparent distress General Appearance: cooperative and comfortable Eyes General Eye: normal appearance of both eyes Neck General: normal visual inspection Chest inspection of chest normal Resp Effort and Inspection: able to speak in complete sentences and symmetric chest movement Auscultation: clear to auscultation bilaterally Cardio regular rate and regular rhythm GI soft to palpation, non-tender and non-distended Extremity no calf tenderness Neuro oriented x3 Psych thought process normal Assessment & Plan Assessment/Plan (1) Encounter for screening for malignant neoplasm of colon: PLAN: Patient presents via open access today for screening colonoscopy. She is aware of the technique, benefit, risk, alternatives. She has had an opportunity to ask and have questions answered. We will proceed as noted. Ab Blankenship M.D., F.A.C.S.
[2023-11-12 12:40] LABS: Internal QC Validated? YES +Cl - CLEAR BKGD; Pregnancy, Urine Negative Negative
[2023-11-12] MEDS: Lactated Ringers 1,000 ML 15 ML IV (12:52)
--- NOTE | 2023-11-12 13:14 | PCM.PRE.AN2 ---
ASA Classification* ASA Classification ASA Classification: 2 Assessment & Plan Anesthesia* Anesthesia Assessment Anesthesia Assessment: Discussed sedation and/or anesthesia options, risks, benefits, and alternatives with patient/parents/legal guardian/POA. Questions invited. The patient/parents/legal guardian/POA seems to understand and agrees to proceed with anesthesia plan. Reviewed the physical assessment, medical history, allergy history and patient home medications list prior to surgery/procedure/anesthetic and documented any changes. Performed airway and anesthesia risk assessments. Anesthesia Type Anesthesia Type: MAC History Source History Obtained from:: Patient and Chart Anesthesia Focused Assessment* Temperature: 97.5 F Pulse Rate: 96 Blood Pressure: 144/106 Respiratory Rate: 16 Pulse Ox: 99 Oxygen Delivery Method: Room Air Airway Assessment Mouth opens: >3 cm Mallampati Score: I Teeth Condition: Intact Neck Range of motion (ROM): Full ROM Focused Labs Anesthesia Preop lab: CBC WBC 4.6 K/mm3 (4.4-11.0) 01/28/22 08:50 RBC 4.13 M/mm3 (4.2-5.4) L 01/28/22 08:50 Hgb 13.6 g/dL (12.0-15.0) 01/28/22 08:50 Hct 40.0 % (37-47) 01/28/22 08:50 Plt Count 258 K/mm3 (150-450) 01/28/22 08:50 CHEMISTRY Potassium 4.1 mmol/L (3.5-5.1) 06/30/23 09:20 Sodium 139 mmol/L (136-145) 06/30/23 09:20 BUN 13 mg/dL (7-18) 06/30/23 09:20 Creatinine 0.80 mg/dL (0.55-1.02) 06/30/23 09:20 Glucose 103 mg/dL (74-106) 06/30/23 09:20 TSH 0.66 uIU/mL (0.358-3.74) 06/30/23 09:20 COAG Urine Test Negative Negative 11/12/23 12:25 Pre-Assessment Diagnosis/Proposed Procedure Planned Operative Procedure(s): COLONOSCOPY Anesthesia History 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 When Was Last Pacemaker Check QUESTION #4 FULL TEXT: You/Your Family Experience fever (hyperthermia) with Anesthesia Last Oral Intake Last Oral intake: Last Oral Intake NPO since 08:00 11/12/23 12:46 Meds taken in AM with sips of No 11/12/23 12:46 water? 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 operator paraffin plant Female Yes 11/07/23 14:36 HX of Motion Sickness No 11/07/23 14:36 HX of N/V After Surgery Yes 11/07/23 14:36 Non-Smoker Yes 11/07/23 14:36 Duration of Surgery greater No 11/07/23 14:36 than 60 minutes Number of Risk Factors 3 11/07/23 14:36 PONV Score Moderate Risk 11/07/23 14:36 Height & Weight Height & Weight: Anesthesia: Height & Weight Height 5 ft 11 in 11/12/23 12:46 Weight: 94 kg 11/12/23 12:46 Body Mass Index (BMI) 28.9 11/12/23 12:46 Respiratory Assessment Respiratory Assessment - leak operator paraffin plant: Respiratory Tract Infection Hx - leak operator paraffin plant Hx Respiratory Tract Infection No 11/07/23 14:36 STOP Sleep Apnea STOP Sleep Apnea - leak operator paraffin plant: STOP Sleep Apnea - leak operator paraffin plant Hx Hypertension Yes 11/07/23 14:36 Hx Sleep Apnea No 11/07/23 14:36 CPAP No 10/28/22 08:40 BIPAP Do you snore loudly (louder No 11/07/23 14:36 than talking or can be heard Do you often feel tired/ No 11/07/23 14:36 fatigued/ sleepy during daytime? Has anyone observed you stop No 11/07/23 14:36 breathing during sleep? STOP Results Negative 11/07/23 14:36 QUESTION #5 FULL TEXT : Do you snore loudly (louder than talking or can be heard through closed doors)? 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 Specify any problems Hx of Preganancy in last 3 No 11/07/23 14:36 Months Nurse Filling Out Transfusion SFRANTSin 11/07/23 14:36 & Questions: Date: 11/07/23 11/07/23 14:36 Time: 14:37 11/07/23 14:36 Patient unable to answer at this time (ie. confused, unrespo /Reproduction History /Reproductive History - leak operator paraffin plant: /Reproductive Hx- leak operator paraffin plant Hx Now No 11/07/23 14:36 Gestational Age (in weeks): EDC: Hx Hx Para Hx Section SAB No 11/07/23 14:36 Active Medications Active Medications: Current Medications Generic Name Dose Route Start Last Admin Trade Name Freq PRN Reason Stop Dose Admin Lactated Ringer's 1,000 mls @ 15 mls/hr 11/12/23 12:30 11/12/23 12:52 IV 15 mls/hr .Q48H ZULEIKA Administration PFSH Medical History (Updated 11/07/23 @ 14:36 by Arielle Bay) Wears glasses Alcohol use Thyroid disease Gastric reflux History of hiatal hernia Non-smoker Cardiology follow-up encounter Encounter for IUD removal Hypertension Hypothyroidism Home Medications ?Medication ?Instructions ?Recorded ?Last Taken ?Type amlodipine 5 mg tablet 5 mg PO DAILY 01/17/20 11/12/23 History levothyroxine 125 mcg tablet 175 mcg PO .every other day 06/20/21 11/12/23 History levothyroxine 200 mcg capsule 200 mcg PO .every other day 06/20/21 11/12/23 History quinapril 10 mg tablet 10 mg PO QHS 06/20/21 11/11/23 History indapamide 2.5 mg tablet 2.5 mg PO QAM 10/20/23 11/12/23 History levonorgestrel-ethinyl estradiol 1 tab PO QDAY #84 tabs 10/20/23 11/11/23 Rx 0.1 mg-20 mcg tablet (Aviane) metoprolol succinate 50 mg 50 mg PO QHS 10/20/23 11/11/23 History tablet,extended release 24 hr Allergy/AdvReac Type Severity Reaction Status Date / Time No Known Allergies Allergy Verified 11/12/23 12:45 Family History Uncle Colon cancer Lung cancer Mother Diabetes Grandmother Diabetes Congestive heart failure Cancer skin CA Grandfather Diabetes Surgical History s/p right leg surgery S/P laparoscopy History of cholecystectomy Social History (Updated 10/20/23 @ 13:13 by Yasmeen Cheung) Smoking Status: Never smoker alcohol intake: current details: glass of wine nightly substance use type: does not use caffeine: Yes what type of physical activity do you participate in: none seatbelt use: always do you feel safe at home: Yes additional social history: - [facility] Review of Systems (Anesthesia) ROS Narrative System reviewed and no additional complaints, except as documented. Review of Systems ROS Unobtainable: Denies due to encephalopathy, due to endotracheal tube, due to mental condition, due to mental status or other Constitutional Constitutional: Denies change in weight, fever(s), snoring or stops breathing during sleep Eyes Eyes: Reports requires corrective lenses ENT HEENT: Denies loss taste/smell, otalgia or sore throat Cardiovascular Cardiovascular: Denies chest pain, dyspnea, hypertension or palpitations Respiratory/Chest Respiratory/Chest: Denies chest congestion, cough or wheezing Gastrointestinal Gastrointestinal: Denies heartburn, nausea or vomiting Musculoskeletal Musculoskeletal: Denies muscle weakness or neck pain Integumentary Integumentary: Denies rash, sores, unusual bruising or wounds Neurologic Neurologic: Denies abnormal movements, abnormal speech, behavior changes, confusion, restless legs or seizures Psychiatric Psychiatric: Denies abnormal sleep pattern, anxiety or confusion Hematologic/Lymphatic Hematologic/Lymphatic: Denies easy bleeding or easy bruising Allergic/Immunologic Allergic/Immunologic: Denies asthma Physical Exam Const alert and oriented x3 Orientation / Consciousness: awake HEENT dentition normal Neck full ROM General: normal visual inspection Resp normal respiratory effort and normal air movement Cardio regular rate and regular rhythm Back/Spine normal ROM Extremity full ROM Skin Rashes: no rashes Neuro oriented x3 and moves all extremities
--- NOTE | 2023-11-12 13:52 | OP.COLON_ITS ---
Patient Name: Roseann Diaz Procedure Date: 11/12/2023 1:00 PM Date of : 1975 Age: 48 Procedure: Colonoscopy Indications: Screening for colorectal malignant neoplasm Providers: Ab Blankenship MD Medicines: See the Anesthesia note for documentation of the administered medications Patient Profile: Last Colonoscopy: none. The patient's first colonoscopy is today. Complications: No immediate complications. Procedure: Pre-Anesthesia Assessment: - Prior to the procedure, a History and Physical was performed, and patient medications and allergies were reviewed. The patient's tolerance of previous anesthesia was also reviewed. The risks and benefits of the procedure and the sedation options and risks were discussed with the patient. All questions were answered, and informed consent was obtained. Prior Anticoagulants: The patient has taken no anticoagulant or antiplatelet agents. ASA Grade Assessment: I - A normal, healthy patient. After reviewing the risks and benefits, the patient was deemed in satisfactory condition to undergo the procedure. After I obtained informed consent, the scope was passed under direct vision. Throughout the procedure, the patient's blood pressure, pulse, and oxygen saturations were monitored continuously. The adult colonoscope was introduced through the anus and advanced to the cecum, identified by appendiceal orifice and ileocecal valve. The colonoscopy was performed without difficulty. The patient tolerated the procedure well. The quality of the bowel preparation was good. The ileocecal valve and the appendiceal orifice were photographed. Scope In: 1:25:11 PM Scope Withdrawal Time 0 hours 17 minutes 20 seconds Scope Out: 1:47:42 PM Total Procedure Duration Time 0 hours 22 minutes 31 seconds Findings: The digital rectal exam findings include non-thrombosed internal hemorrhoids and internal hemorrhoids (Grade I). Scattered diverticula were found in the sigmoid colon. The sigmoid colon was moderately tortuous. The exam was otherwise without abnormality. Significant attempt was made to intubate the terminal ileum. Secondary to angulation and spasm noted at the ileocecal valve could not accomplish this. Impression: - Non-thrombosed internal hemorrhoids and internal hemorrhoids (Grade I) found on digital rectal exam. - Diverticulosis in the sigmoid colon. - Tortuous colon. - The examination was otherwise normal. - No specimens collected. No specific findings that would correlate with IBS. Recommendation: - Discharge patient to home. - Resume previous diet. - Continue present medications. - Repeat colonoscopy in 10 years for screening purposes. Procedure Code(s): --- Professional --- 46744, Colonoscopy, flexible; diagnostic, including collection of specimen(s) by brushing or washing, when performed (separate procedure) Diagnosis Code(s): --- Professional --- Z12.11, Encounter for screening for malignant neoplasm of colon K64.0, First degree hemorrhoids K57.30, Diverticulosis of large intestine without perforation or abscess without bleeding Q43.8, Other specified congenital malformations of intestine CPT copyright 2021 [employer]. All rights reserved. The codes documented in this report are preliminary and upon wind field service manager review may be revised to meet current compliance requirements. Ab Blankenship MD 11/12/2023 1:52:09 PM This report has been signed electronically. Number of Addenda: 0 Note Initiated On: 11/12/2023 1:00 PM
--- NOTE | 2023-11-12 13:53 | OP.CCLET_ITS ---
11/12/2023 Kingston Her [address] [place] [address] Re : Colonoscopy procedure for Roseann Joe Dear Dr. Her This procedure was performed on Sunday, November 12, 2023. My impressions and recommendations are as follows: Impressions : - Non-thrombosed internal hemorrhoids and internal hemorrhoids (Grade I) found on digital rectal exam. - Diverticulosis in the sigmoid colon. - Tortuous colon. - The examination was otherwise normal. - No specimens collected. No specific findings that would correlate with IBS. Recommendations : - Discharge patient to home. - Resume previous diet. - Continue present medications. - Repeat colonoscopy in 10 years for screening purposes. My findings are described in the full procedure note, which is enclosed. If I can be of further assistance, please feel free to contact me at Doctor phone number(s): Work: . Sincerely, Ab Blankenship MD 11/12/2023 1:52:09 PM This report has been signed electronically.
--- NOTE | 2023-11-12 13:57 | PCM.POST.ANE ---
Anesthesia: Postop Eval I Current Vital Signs Temperature: 97.7 F Pulse Rate: 85 Blood Pressure: 104/85 Respiratory Rate: 14 Pulse Ox: 100 Oxygen Delivery Method: Room Air Assessment Airway patent: Yes Spontaneous unlabored respirations: Yes Mental status: Awake and Calm nausea: No Vomiting: No Anesthesia Complication: No Fluid Hydration Crystalloid volume administer (ml): 500 Total IV fluid infused: 500 Progress Note Anesthesia document: Postop Eval 1 completed: Yes
--- NOTE | 2023-11-12 17:57 | POSTOPAN2_ITS ---
Anesthesia Postop Eval I Sum Postop Eval Completion status Anesthesia document: Postop Eval 1 completed: Yes Anesthesia Postop Eval I Summary Anesthesia Postop Eval I Summary: Anesthesia Postop Eval I: Assessment Summary Airway patent Yes 11/12/23 13:57 COMPUTER SYSTEMS [email or web address] Spontaneous unlabored Yes 11/12/23 13:57 COMPUTER SYSTEMS [email or web address] respirations Mental status Awake,Calm 11/12/23 13:57 COMPUTER SYSTEMS [email or web address] nausea No 11/12/23 13:57 COMPUTER SYSTEMS [email or web address] Vomiting No 11/12/23 13:57 COMPUTER SYSTEMS ADMINISTRATOR.[email or web address] Anesthesia Postop Eval I: Fluid Summary Crystalloid volume administer 500 11/12/23 13:57 COMPUTER SYSTEMS [email or web address] (ml) Colloids volume administered ( ml) Blood Product volume administered (ml) Total IV fluid infused 500 11/12/23 13:57 COMPUTER SYSTEMS ADMINISTRATOR.[email or web address] Anesthesia Postop Eval I: Summary Notes Anesthesia Complication No 11/12/23 13:57 COMPUTER SYSTEMS [email or web address] Anesthesia Complication Comment: Post-operative progress note Anesthesia: Postop Eval II Evaluation Mental status: Awake and Calm Pain Level: 0 nausea: No Vomiting: No Complications Anesthesia Complication: No
--- NOTE | 2023-11-12 17:57 | PCM.POSTANE2 ---
Anesthesia Postop Eval I Sum Postop Eval Completion status Anesthesia document: Postop Eval 1 completed: Yes Anesthesia Postop Eval I Summary Anesthesia Postop Eval I Summary: Anesthesia Postop Eval I: Assessment Summary Airway patent Yes 11/12/23 13:57 DRYING OVEN [email or web address] Spontaneous unlabored Yes 11/12/23 13:57 DRYING OVEN ATTENDANT.[email or web address] respirations Mental status Awake,Calm 11/12/23 13:57 DRYING OVEN ATTENDANT.[email or web address] nausea No 11/12/23 13:57 DRYING OVEN ATTENDANT.[email or web address] Vomiting No 11/12/23 13:57 DRYING OVEN ATTENDANT.[email or web address] Anesthesia Postop Eval I: Fluid Summary Crystalloid volume administer 500 11/12/23 13:57 DRYING OVEN ATTENDANT.[email or web address] (ml) Colloids volume administered ( ml) Blood Product volume administered (ml) Total IV fluid infused 500 11/12/23 13:57 DRYING OVEN ATTENDANT.[email or web address] Anesthesia Postop Eval I: Summary Notes Anesthesia Complication No 11/12/23 13:57 DRYING OVEN ATTENDANT.[email or web address] Anesthesia Complication Comment: Post-operative progress note Anesthesia: Postop Eval II Evaluation Mental status: Awake and Calm Pain Level: 0 nausea: No Vomiting: No Complications Anesthesia Complication: No
== END 2023-11-12 14:32 | disposition home or self-care (01) ==
LOC: EN 12:18 → AC 12:20
PROVIDERS: Anesthesiology; PCP Family Medicine; Referring Provider Surgery; Visit Provider Surgery
PROC: 0DJD8ZZ Inspection of Lower Intestinal Tract, Via Natural or Artificial Opening Endoscopic (ICD-10-PCS; CPT 45378; principal; 2023-11-12 13:25)
DX: Z12.11 Encounter for screening for malignant neoplasm of colon (principal); K57.30 Diverticulosis of large intestine without perforation or abscess without bleeding; K64.0 First degree hemorrhoids; I10 Essential (primary) hypertension; K21.9 Gastro-esophageal reflux disease without esophagitis; K44.9 Diaphragmatic hernia without obstruction or gangrene; E03.9 Hypothyroidism, unspecified; Z79.899 Other long term (current) drug therapy; Z79.890 Hormone replacement therapy
CPT/HCPCS: 45378; 81025; J7120

== ENCOUNTER → 2024-02-26 | Outpatient (CLI) | payer OTHER, SELFPAY ==
--- OUTSIDE RECORDS SUMMARY | 2024-02-26 07:27 | XMS RPT_ITS | CCD ---
Author Organization [facility] Care Team Providers Care Inflatable Buildings Laminator Name Role Phone Flora Small LPN Unavailable Unavailab Migdalia Hoffman NP Unavailable FelJeana carmona C Unavailable Unavailable Felmathew Jeana C Unavailable Unavailable Yuri Jeana C Unavailable Unavailable Flora Small LPN Unavailable Unavailab Flora Bernal LPN Unavailable Unavailab DAMIAN Beltre Unavailable Unavailable Medications Completed/Discontinued Medications Medication Drug Class(es) Dates Sig (Normalized) Sig (Original) azithromycin 250 mg oral tablet (15 sources) Macrolide Antimicrobial Start: 01-27-2017 End: 02-26-2017 AZITHROMYCIN 250 MG TABS 2 tablets on day 1, then 1 tablet daily on days 2-5 AZITHROMYCIN [id number] Cristobal ALMAZAN levonorgestrel 0.153765 mg/hr intrauterine system (6 sources) Progestin, Progestin-containin g Intrauterine Device Start: 02-26-2017 MIRENA (52 MG) 20 MCG/24HR IUD LEVONORGESTREL [id number] Migdalia Portillo WHARF WORKER levothyroxine sodium 0.2 mg oral tablet (6 sources) l-Thyroxine Start: 02-26-2017 LEVOTHYROXINE SODIUM 200 MCG TABS LEVOTHYROXINE SODIUM [id number] Migdalia Portillo WHARF WORKER Problems Active Problems Problem Classification Problem Date [...] Name Value Interpretation Reference Range Facil ity Lab Report: PAP I-G HPV Hi R iskon 03-04-2017 HPV HC,HGH RISK Negative Invalid Interpretation Code Negative [facility] Lab Report: CT/NG [facility] BY PCR on 02-26-2017 Chlamydia trachomatis DNA [Presence] in Urine by Probe and target amplification method Negative Invalid Interpretation Code Negative [facility] Neisseria gonorrhoeae presence Negative Invalid Interpretation Code Negative [facility] Office Visit: est annualon 1 04-28-2016 Documentation of current medications (procedure) Done Invalid Interpretation Code [facility] Fall risk assessment No Invalid Interpretation Code [facility] Tobacco smoking status NHIS Never Invalid Interpretation Code [facility] Tobacco use CPHS Never smoker Invalid Interpretation Code [facility] Office Visit: UC: sinusitis, AU OM, pharyngitison 01-27-2017 Alcoholism counseling (procedure) no Invalid Interpretation Code [facility] Work Phone: Protein mass conc no Invalid Interpretation Code [facility] Work Phone: Tobacco smoking status NHIS Never smoker Invalid Interpretation Code [facility] Work Phone: Tobacco use CPHS Never smoker Invalid Interpretation Code [facility] Work Phone: Office Visit: est annualon 1 Breast Mammogram screening Normal Bilateral Invalid Interpretation Code [facility] Vital Signs Date Time Vital Sign Value Performing Clinician Facility 02-26-2017 08:03-0400 BMI (Body Mass Index) 27.67 kg/m2 Migdalia Portillo NP [facility] 02-26-2017 08:03-0400 Body Temperature 97.4 [degF] Migdalia Portillo WHARF WORKER [facility] 02-26-2017 08:03-0400 Body Temperature 97.39 [degF] Migdalia Portillo WHARF [employer] [facility] 02-26-2017 08:03-0400 BP Diastolic 89 mm[Hg] Migdalia Portillo WHARF WORKER [facility] 02-26-2017 08:03-0400 BP Systolic 148 mm[Hg] Migdalia Portillo [employer]AR[employer] WORKER [facility] 02-26-2017 08:03-0400 Height 180.34 cm Migdalia Portillo NP [facility] 02-26-2017 08:03-0400 Pulse (Heart Rate) 72 /min Migdalia Portillo WHARF WORKER [facility] 02-26-2017 08:03-0400 Respiratory Rate 16 /min Migdalia Portillo WHAR[employer] [facility] 02-26-2017 08:03-0400 Weight 89.99 kg Migdalia Portillo WHARF WORKER [facility] Encounters Encounter Date Encounter Type Care Provider Facility Start: 06-20-2016 End: 06-20-2016 Patient encounter procedure DAMIAN KING [facility] Plan of Treatment Date Care Activity Detail Author Start: 02-26-2017 End: 02-26-2017 *GC/Chlamydia *GC/Chlamydia [facility] Start: 02-26-2017 End: 02-26-2017 Mammogram, screening Mammogram, Screening, both breasts [facility] Start: 02-26-2017 End: 02-26-2017 Appointment Appointment [facility] Start: 01-27-2017 End: 01-27-2017 Appointment Appointment [facility] Work Phone: Patient Education PHARYNGITIS [facility] Work Phone: Summary Purpose Family History No Family History Records Found Advance Directives No Advanced Directives Records Found Additional Source Comments INFORMATION SOURCE (unrecogn ized section and content) DATE CREATED AUTHOR 04/17/2018 [facility] FOR RECORDS PERTAINING TO PATIENTS WHO ARE [...] BE BASED ON THE PRIMARY CLINICAL RECORDS. [employer] [facility]. provides no warranty or guarantee of the accuracy or completeness of information in this document.
[2024-02-26 10:45] LABS: Anion Gap 4 (5-15); BUN 12 mg/dL (7-18); BUN/Creat Ratio 15.3 RATIO (10-20); Calcium,Total 9.5 mg/dL (8.5-10.1); Chloride 110 mmol/L (98-107); Creatinine, Serum 0.78 mg/dL (0.55-1.02); EST Glomerular Filtration Rate 83 mL/min (>60); Est Glom Filt Rate - Afr Amer 101 mL/min (>60); Glucose 109 mg/dL (74-106); Potassium 4.4 mmol/L (3.5-5.1); Sodium Level 140 mmol/L (136-145)
[2024-02-26 10:50] LABS: Microalbumin,Random Urine 14.1 mg/L (NO RANGE EST.); Microalbumin:Creatinine Ratio 10.1 mg/g CRE (<30 mg/g CRE)
== END | disposition home or self-care (01) ==
PROVIDERS: PCP Family Medicine; Referring Provider Family Medicine; Visit Provider Family Medicine
DX: I10 Essential (primary) hypertension (principal)
CPT/HCPCS: 36415; 80048; 82043; 82570

== ENCOUNTER → 2024-07-30 | Outpatient (CLI) | payer OTHER, SELFPAY ==
[2024-07-30 11:40] LABS: Anion Gap 11 (5-15); BUN 13 mg/dL (4-19); BUN/Creat Ratio 18.1 RATIO (10-20); Calcium,Total 9.4 mg/dL (7.6-11.0); Carbon Dioxide 24.8 mmol/L (21.0-32.0); Chloride 103 mmol/L (98-108); Cholesterol 188 mg/dL (<=200); Creatinine, Serum 0.69 mg/dL (0.70-1.20); EST Glomerular Filtration Rate 107 (>60); Glucose 101 mg/dL (70-99); High Density Lipoprotein 65 mg/dL; Low Density Lipoprotein Calc. 102 mg/dL; Potassium 4.6 mmol/L (3.3-5.1); Sodium Level 139 mmol/L (133-145); Triglycerides 106 mg/dL; Very Low Density Lipoprotein 21 mg/dL (5-40); cholesterol:hdl ratio screen 2.89
== END | disposition home or self-care (01) ==
LOC: MTLAB 08:42
PROVIDERS: PCP Family Medicine; Referring Provider Nurse Practitioner Family; Visit Provider Nurse Practitioner Family
DX: E03.9 Hypothyroidism, unspecified (principal); Z13.1 Encounter for screening for diabetes mellitus; Z13.220 Encounter for screening for lipoid disorders
CPT/HCPCS: 36415; 80048; 80061; 84443

== ENCOUNTER → 2024-11-01 | Outpatient (CLI) | payer OTHER, SELFPAY | END | disposition home or self-care (01) | LOC: OPBI 11:36 | PROVIDERS: PCP Family Medicine; Referring Provider Nurse Practitioner Family; Visit Provider Nurse Practitioner Family | DX: Z12.31 Encounter for screening mammogram for malignant neoplasm of breast (principal) | CPT/HCPCS: 77063; 77067 ==

== ENCOUNTER → 2024-12-21 | Outpatient (CLI) | payer OTHER, SELFPAY ==
[2024-12-22 21:08] LABS: Chlamydia By Nucleic Acid AMP Negative (Negative); Gonococcus By Nucleic Acid AMP Negative (Negative)
== END | disposition home or self-care (01) ==
LOC: LABSPEC 11:53
PROVIDERS: PCP Family Medicine; Visit Provider Nurse Practitioner Women's Health
DX: Z11.3 Encounter for screening for infections with a predominantly sexual mode of transmission (principal)
CPT/HCPCS: 87491; 87591

== ENCOUNTER → 2025-03-09 | Outpatient (CLI) | payer OTHER, SELFPAY ==
--- OUTSIDE RECORDS SUMMARY | 2025-03-09 07:13 | XMS RPT_ITS | CCD ---
Author Organization [facility] Care Team Providers Care Commissioner Of Officials Name Role Phone Geovanny LEVIN, Flora Booth Unavailable Unavailab kennedy Portillo ARMORED TRUCK DRIVER, Migdalia Self Unavailable [phone] Felgar Jeana C Unavailable Unavailable Felgar, Jeana C Unavailable Unavailable Felgar Jeana C Unavailable Unavailable Geovanny LEVIN, Flora Booth Unavailable Unavailab le Flora Small LPN Unavailable Unavailab DAMIAN Beltre Unavailable Unavailable Dr. Kingston Her Primary Care Provider [phone] Dr. Kingston Her Referring Provider 1([facility])[phone] Ab Payne Attending Provider Dr. Ab Blankenship Attending Provider 1([facility])[phone] Dr. Ab Blankenship Other Provider 1([facility])[phone] Kingston Her Primary Care Provider 1([facility])[phone] Dr. Kingston Her Referring Provider 1([facility])[phone] Kingston Her Primary Care Provider Dr. Kingston Her Referring Provider Dr. Amos Bose Attending Provider Dr. Kingston Her Primary Care Provider Dr. Kingston Her Referring Provider 1([facility])[phone] Ab Blankenship Attending Provider [phone] THA Gonzalez Attending Provider 1([facility])[phone] Dr. Kingston Her MD Primary Care Provider 1([facility])[phone] Dr. Kingston Her MD Referring Provider [phone] Doskathleen [place], Dr. Levi Attending Provider Spencer MOTA, Dr. Rios Attending Provider Sancho Gonzalez Attending Provider [phone] Cristobal Olivares Attending Provider [phone] Joann ARMORED TRUCK DRIVER-C, Naty Attending Provider Joann ARMORED TRUCK DRIVER-C, Naty Referring Provider Arden MOTA, Dr. Onofre Primary Care Provider Arden MOTA, Dr. Onofre Referring Provider [phone] [place]leen [place], Dr. Levi Attending Provider Sancho Gonzalez Attending Provider Arden MOTA, Dr. Onofre Primary Care Provider Arden MOTA, Dr. Onofre Referring Provider Arden MOTA, Dr. Onofre Primary Care Provider Arden MOTA, Dr. Onofre Referring Provider [phone] Cristobal Olivares Attending Provider [phone] Joann ARMORED TRUCK DRIVER-C, Naty Attending Provider Joann ARMORED TRUCK DRIVER-C, Naty Referring Provider Bland ARMORED TRUCK DRIVER-C, Migdalia Attending Provider Her, Kingston Primary Care Unavailable Her, Kingston Referring Unavailable Cristobal Olivares Attending Unavailable Her, Kingston Referring Unavailable Amita Grover Attending Unavailable Her, [place] Primary Care Unavailable Her, Kingston Primary Care Unavailable Her, Kingston Attending Unavailable Her, Kingston Primary Care Unavailable Joann ARMORED TRUCK DRIVER, Naty Referring Unavailable Joann ARMORED TRUCK DRIVER, Naty Attending Unavailable Her, Kingston Primary Care Unavailable Bandar ARMORED TRUCK DRIVER, Migdalia Attending Unavailable Joann ARMORED TRUCK DRIVER, Naty Attending Unavailable Joann ARMORED TRUCK DRIVER, Naty Referring Unavailable Her, Kingston Primary Care Unavailable Her, Kingston Referring Unavailable DosAmita wang Attending Unavailable Her, [place] Primary Care Unavailable Her, Kingston Primary Care Unavailable Bandar ARMORED TRUCK DRIVER, Migdalia Attending Unavailable Her, Kingston Referring Unavailable Her, Kingston Referring Unavailable DosAmita wang Attending Unavailable Her, [place] Primary Care Unavailable Her, Kingston Primary Care Unavailable Gabriel Palmer Attending Unavailable Her, Kingston Referring Unavailable Sancho Gonzalez Attending Unavailable Her, Kingston Primary Care Unavailable Her, Kingston Referring Unavailable Amita Grover Attending Unavailable Her, [place] Primary Care Unavailable Her, Kingston Referring Unavailable Cristobal Olivares Attending Unavailable Her, [place] Primary Care Unavailable Her, Kingston Primary Care Unavailable Sancho Gonzalez Attending Unavailable Her, Kingston Referring Unavailable Her, Kingston Referring Unavailable Her, Kingston Primary Care Unavailable Cristobal Olivares Attending Unavailable Medications Current Medications Medication Drug Class(es) Dates Sig (Normalized) Sig (Original) amLODIPine 5 mg oral tablet (10 sources) Dihydropyridine Calcium Channel Vero Start: 01-17-2020 take 1 tablet by mouth once daily Amlodipine 5 mg tablet Active 5 mg PO DAILY January 17, 2020 12:00am Levonorgestrel-Et hinyl Estrad (20 sources) Progestin, Estrogen, Progestin-containing Intrauterine Device Start: 11-15-2024 take 1 tablet by mouth once daily Levonorgestrel-E thinyl Estrad (Aviane) 0.1-20 mg-mcg tablet Active 1 {tbl} PO daily 84 November 15, 2024 4:48pm Start: 10-20-2023 End: 11-15-2024 take 1 tablet by mouth once daily Levonorgestrel-Ethinyl Estrad (Aviane) 0.1-20 mg-mcg tablet Discontinued 1 {tbl} PO daily 84 October 20, 2023 1:30pm November 15, 2024 4:48pm Start: 10-20-2023 take 1 tablet by khoa th once daily Levonorgestrel-Ethinyl Estrad (Aviane) 0.1-20 mg-mcg tablet Active 1 {tbl} PO daily 84 October 20, 2023 1:30pm Start: 10-20-2023 take 1 tablet by khoa th once daily Levonorgestrel-Ethinyl Estrad (Aviane) 0.1-20 mg-mcg tablet Active 1 {tbl} PO daily 84 October 20, 2023 1:30pm Start: 09-03-2023 End: 10-20-2023 take 1 tablet by mouth once daily Levonorgestrel-Ethinyl Estrad (Aviane) 0.1-20 mg-mcg tablet Discontinued 1 {tbl} PO daily 84 September 03, 2023 7:17am October 20, 2023 1:30pm Start: 09-03-2023 End: 10-20-2023 take 1 tablet by mouth once daily Levonorgestrel-Ethinyl Estrad (Aviane) 0.1-20 mg-mcg tablet Discontinued 1 {tbl} PO daily September 03, 2023 7:17am October 20, 2023 1:30pm Start: 08-07-2023 End: 09-03-2023 take 1 tablet by mouth once daily Levonorgestrel-Ethinyl Estrad (Aviane) 0.1-20 mg-mcg tablet Discontinued 1 {tbl} PO daily August 07, 2023 12:00am September 03, 2023 7:19am Start: 08-07-2023 End: 09-03-2023 take 1 tablet by mouth once daily Levonorgestrel-Ethinyl Estrad (Aviane) 0.1-20 mg-mcg tablet Discontinued 1 {tbl} PO daily August 07, 2023 12:00am September 03, 2023 7:19am Start: 01-30-2022 End: 04-30-2022 take 1 tablet by mouth once daily Levonorgestrel-Ethinyl Estrad (Aviane) 0.1-20 mg-mcg tablet Discontinued 1 {tbl} PO daily January 30, 2022 4:02pm April 29, 2022 1:00am April 30, 2022 1:04am Start: 01-30-2022 End: 04-30-2022 take 1 tablet by mouth once daily Levonorgestrel-Ethinyl Estrad (Aviane) 0.1-20 mg-mcg tablet Discontinued 1 {tbl} PO daily January 30, 2022 4:02pm April 29, 2022 1:00am April 30, 2022 1:04am Start: 01-30-2022 End: 04-30-2022 take 1 tablet by mouth once daily Levonorgestrel-Ethinyl Estrad (Aviane) 0.1-20 mg-mcg tablet Discontinued 1 TABLET PO daily January 30, 2022 3:02pm April 30, 2022 12:04am Start: 01-30-2022 take 1 tablet by khoa th once daily Levonorgestrel-Ethinyl Estrad (Aviane) 0.1-20 mg-mcg tablet Active 1 TABLET PO daily January 30, 2022 4:02pm Start: 04-04-2021 End: 01-30-2022 take 1 tablet by mouth once daily Levonorgestrel-Ethinyl Estrad (Aviane) 0.1-20 mg-mcg tablet Discontinued 1 {tbl} PO daily April 04, 2021 10:14am January 30, 2022 4:02pm Start: 04-04-2021 End: 01-30-2022 take 1 tablet by mouth once daily Levonorgestrel-Ethinyl Estrad (Aviane) 0.1-20 mg-mcg tablet Discontinued 1 {tbl} PO daily April 04, 2021 10:14am January 30, 2022 4:02pm Start: 04-04-2021 End: 01-30-2022 take 1 tablet by mouth once daily Levonorgestrel-Ethinyl Estrad (Aviane) 0.1-20 mg-mcg tablet Discontinued 1 TABLET PO daily April 04, 2021 9:14am January 30, 2022 3:02pm Start: 04-04-2021 End: 01-30-2022 take 1 tablet by mouth once daily Levonorgestrel-Ethinyl Estrad (Aviane) 0.1-20 mg-mcg tablet Discontinued 1 TABLET PO daily April 04, 2021 10:14am January 30, 2022 4:02pm Start: 04-04-2021 take 1 tablet by khoa th once daily Levonorgestrel-Ethinyl Estrad (Aviane) 0.1-20 mg-mcg tablet Active 1 TABLET PO daily April 04, 2021 10:14am Start: 03-07-2021 End: 04-04-2021 take 1 tablet by mouth once daily Levonorgestrel-Ethinyl Estrad (Aviane) 0.1-20 mg-mcg tablet Discontinued 1 {tbl} PO daily March 07, 2021 2:27pm April 04, 2021 10:15am Start: 03-07-2021 End: 04-04-2021 take 1 tablet by mouth once daily Levonorgestrel-Ethinyl Estrad (Aviane) 0.1-20 mg-mcg tablet Discontinued 1 {tbl} PO daily March 07, 2021 2:27pm April 04, 2021 10:15am Start: 03-07-2021 End: 04-04-2021 take 1 tablet by mouth once daily Levonorgestrel-Ethinyl Estrad (Aviane) 0.1-20 mg-mcg tablet Discontinued 1 TABLET PO daily March 07, 2021 1:27pm April 04, 2021 9:15am Start: 03-07-2021 End: 04-04-2021 take 1 tablet by mouth once daily Levonorgestrel-Ethinyl Estrad (Aviane) 0.1-20 mg-mcg tablet Discontinued 1 TABLET PO daily March 07, 2021 2:27pm April 04, 2021 10:15am Start: 03-07-2021 End: 03-07-2021 take 1 tablet by mouth once daily Levonorgestrel-Ethinyl Estrad (Aviane) 0.1-20 mg-mcg tablet Discontinued 1 {tbl} PO daily March 07, 2021 1:24pm March 07, 2021 2:27pm Start: 03-07-2021 End: 03-07-2021 take 1 tablet by mouth once daily Levonorgestrel-Ethinyl Estrad (Aviane) 0.1-20 mg-mcg tablet Discontinued 1 {tbl} PO daily March 07, 2021 1:24pm March 07, 2021 2:27pm Start: 03-07-2021 End: 03-07-2021 take 1 tablet by mouth once daily Levonorgestrel-Ethinyl Estrad (Aviane) 0.1-20 mg-mcg tablet Discontinued 1 TABLET PO daily March 07, 2021 12:24pm March 07, 2021 1:27pm Start: 03-07-2021 End: 03-07-2021 take 1 tablet by mouth once daily Levonorgestrel-Ethinyl Estrad (Aviane) 0.1-20 mg-mcg tablet Discontinued 1 TABLET PO daily March 07, 2021 1:24pm March 07, 2021 2:27pm Start: 02-28-2021 End: 03-07-2021 take 1 tablet by mouth once daily Levonorgestrel-Ethinyl Estrad (Aviane) 0.1-20 mg-mcg tablet Discontinued 1 {tbl} PO daily 84 February 28, 2021 9:59am March 07, 2021 1:25pm Start: 02-28-2021 End: 03-07-2021 take 1 tablet by mouth once daily Levonorgestrel-Ethinyl Estrad (Aviane) 0.1-20 mg-mcg tablet Discontinued 1 {tbl} PO daily February 28, 2021 9:59am March 07, 2021 1:25pm Start: 02-28-2021 End: 03-07-2021 take 1 tablet by mouth once daily Levonorgestrel-Ethinyl Estrad (Aviane) 0.1-20 mg-mcg tablet Discontinued 1 TABLET PO daily February 28, 2021 8:59am March 07, 2021 12:25pm Start: 02-28-2021 End: 03-07-2021 take 1 tablet by mouth once daily Levonorgestrel-Ethinyl Estrad (Aviane) 0.1-20 mg-mcg tablet Discontinued 1 TABLET PO daily February 28, 2021 9:59am March 07, 2021 1:25pm Start: 01-17-2020 End: 02-28-2021 take 1 tablet by mouth once daily Levonorgestrel-Ethinyl Estrad (Aviane) 0.1-20 mg-mcg tablet Discontinued 1 TABLET PO daily January 17, 2020 9:07am February 28, 2021 9:59am Start: 01-17-2020 End: 02-28-2021 take 1 tablet by mouth once daily Levonorgestrel-Ethinyl Estrad (Aviane) 0.1-20 mg-mcg tablet Discontinued 1 {tbl} PO daily January 17, 2020 12:00am February 28, 2021 9:59am Start: 01-17-2020 End: 02-28-2021 take 1 tablet by mouth once daily Levonorgestrel-Ethinyl Estrad (Aviane) 0.1-20 mg-mcg tablet Discontinued 1 {tbl} PO daily January 17, 2020 12:00am February 28, 2021 9:59am Start: 01-17-2020 End: 02-28-2021 take 1 tablet by mouth once daily Levonorgestrel-Ethinyl Estrad (Aviane) 0.1-20 mg-mcg tablet Discontinued 1 TABLET PO daily January 16, 2020 11:00pm February 28, 2021 8:59am Start: 01-17-2020 End: 02-28-2021 take 1 tablet by mouth once daily Levonorgestrel-Ethinyl Estrad (Aviane) 0.1-20 mg-mcg tablet Discontinued 1 TABLET PO daily January 17, 2020 12:00am February 28, 2021 9:59am indapamide 2.5 mg oral tablet (5 sources) Thiazide-like Diuretic Start: 10-20-2023 take 1 tablet by mouth once daily in the morning Indapamide 2.5 mg tablet Active 2.5 mg PO EVERY MORNING October 20, 2023 12:00am 24 hr metoprolol succinate 50 mg extended release oral tablet (5 sources) beta-Adrenergic Vero Start: 10-20-2023 take 1 tablet by mouth every twenty-four hours at bedtime Metoprolol Succinate 50 mg tablet extended release 24 hr Active 50 mg PO AT BEDTIME October 20, 2023 12:00am quinapril 10 mg oral tablet (10 sources) Angiotensin Converting Enzyme Inhibitor Start: 06-20-2021 take 1 tablet by mouth at bedtime Quinapril 10 mg tablet Active 10 mg PO AT BEDTIME June 20, 2021 1:00am levothyroxine sodium 0.125 mg oral tablet (20 sources) l-Thyroxine Start: 06-20-2021 Levothyroxine 125 mcg tablet Active 175 ug PO .every other day June 20, 2021 1:31pm Start: 06-20-2021 take 175 ug by mouth every other day Levothyroxine Active 175 MCG PO .every other day June 20, 2021 12:31pm Start: 06-20-2021 take 1 capsule by mo [facility] every other day Levothyroxine 200 mcg capsule Active 200 ug PO .every other day June 20, 2021 1:00am Start: 02-26-2017 LEVOTHYROXINE SODIUM 200 MCG TABS LEVOTHYROXINE SODIUM [id number] Migdaliaralph Josemarty WINSTON Start: 01-16-2015 End: 06-20-2021 Levothyroxine 125 MCG tablet Discontinued 175 ug PO DAILY January 16, 2015 12:00am June 20, 2021 1:32pm Start: 01-16-2015 End: 06-20-2021 take 175 ug by mouth once daily Levothyroxine Disconti nued 175 MCG PO DAILY January 15, 2015 11:00pm June 20, 2021 12:32pm Completed/Discontinued Medications Medication Drug Class(es) Dates Sig (Normalized) Sig (Original) acetaminophen 325 mg / oxyCODONE hydrochloride 5 mg oral tablet (10 sources) Opioid Agonist Start: 01-16-2015 End: 12-09-2017 Oxycodone-Acetamino phen 1 TABLET tablet Discontinued 1 - 2 {tbl} PO EVERY 6 HOURS NEEDED as needed for Pain January 16, 2015 12:00am December 09, 2017 2:27pm Start: 01-16-2015 End: 12-09-2017 take 1 tablet by mouth every six hours as needed Oxycodone-Acetaminophen Discontinued 1 - 2 TABLET PO EVERY 6 HOURS NEEDED January 15, 2015 11:00pm December 09, 2017 1:27pm amoxicillin 500 mg oral capsule (10 sources) Penicillin-class Antibacterial Start: 07-18-2020 End: 04-04-2021 take 1 capsule by mouth three times daily Amoxicillin 500 mg capsule Discontinued 500 mg PO THREE TIMES A DAY July 18, 2020 12:00am April 04, 2021 9:52am azithromycin 250 mg oral tablet (15 sources) Macrolide Antimicrobial Start: 01-27-2017 End: 02-26-2017 AZITHROMYCIN 250 MG TABS 2 tablets on day 1, then 1 tablet daily on days 2-5 AZITHROMYCIN [id number] Cristobal ALMAZAN sugar-free cholestyramine resin 4000 mg powder for oral suspension (10 sources) Bile Acid Sequestrant Start: 05-05-2018 End: 05-28-2018 Cholestyramine-A spartame (Cholestyramine Light) 4 gram powder Discontinued 4 g PO THREE TIMES A DAY 231 1 May 05, 2018 1:00am May 28, 2018 9:12am administer w/meal; avoid other meds within 1hr before or 4-6hr after dose dextromethorphan hydrobromide 15 mg / guaiFENesin 400 mg / pseudoephedrine hydrochloride 60 mg oral tablet (14 sources) alpha-Adrenergic Agonist, Uncompetitive T-khlsuw-O-aspartate Receptor Antagonist, Sigma-1 Agonist Start: 09-30-2024 End: 12-21-2024 take 4 tablets by mouth every twenty-four hours as needed Pseudoephedrine- Dm-Guaifenesin (Capmist Dm) 60-15-400 mg tablet Discontinued 1 {tbl} PO EVERY 4-6 HOURS as needed for cold symptoms 30 0 September 30, 2024 1:37pm December 21, 2024 9:20am do not exceed 4 doses per 24 hrs Start: 06-12-2023 End: 10-20-2023 take 4 tablets by mouth every twenty-four hours as needed Cfbrwjjbhbykkwg-Wu-Bqynoqvdmto (Capmist Dm) 60-15-400 mg tablet Discontinued 1 {tbl} PO EVERY 4-6 HOURS as needed for cold symptoms 20 0 June 12, 2023 1:00am October 20, 2023 1:12pm do not exceed 4 doses per 24 hrs dicyclomine hydrochloride 20 mg oral tablet (10 sources) Anticholinergic Start: 05-08-2018 End: 05-28-2018 take 2 tablets by mouth four times daily Dicyclomine 20 mg tablet Discontinued 40 mg PO .qid 60 1 May 08, 2018 1:00am May 28, 2018 9:12am diarrhea Start: 05-08-2018 End: 05-28-2018 take 40 mg by mouth four times daily Dicyclomine Discontinued 40 MG PO .qid 60 May 08, 2018 12:00am May 28, 2018 8:12am hyoscyamine sulfate 0.125 mg oral tablet (10 sources) Start: 06-09-2019 End: 04-04-2021 Hyoscyamine Sulfate (Levsin) 0.125 mg tablet Discontinued 0.125 mg PO 2 to 4 times per day as needed for dyspepsia 60 1 June 09, 2019 1:00am April 04, 2021 9:52am Epigastric pain Eructation Ipratropium Gary 21 mcg (0.03 %) spray,non-aerosol (5 sources) Start: 07-09-2024 End: 07-19-2024 Ipratropium Gary 21 mcg ( 0.03 %) spray,non-aerosol Discontinued 2 NMA INTRANASAL THREE TIMES A DAY 30 10 July 09, 2024 12:00am July 18, 2024 12:00am July 19, 2024 12:12am administer into each nostril Start: 07-09-2024 End: 07-19-2024 Ipratropium Gary 21 mcg ( 0.03 %) spray,non-aerosol Discontinued 2 NMA INTRANASAL THREE TIMES A DAY 30 July 09, 2024 12:00am July 18, 2024 12:00am July 19, 2024 12:12am administer into each nostril levonorgestrel 0.190274 mg/hr intrauterine system (20 sources) Progestin, Progestin-containing Intrauterine Device Start: 05-28-2018 End: 12-02-2019 Levonorgestrel (Mirena) 20 mcg/24 hr (5 years) intrauterine device Discontinued 1 NMA INTRA-UTER ONCE May 28, 2018 1:00am December 02, 2019 8:43am Start: 05-28-2018 End: 12-02-2019 Levonorgestrel (Mirena) 20 m cg/24 hr (5 years) intrauterine device Discontinued 1 INSERT INTRA-UTER ONCE May 28, 2018 12:00am December 02, 2019 7:43am Start: 02-26-2017 MIRENA (52 MG) 20 MCG/24HR IUD LEVONORGESTREL [id number] Migdalia Portillo NP methylPREDNISolone 4 mg oral tablet (10 sources) Corticosteroid Start: 12-09-2017 End: 05-28-2018 take 1 tablet by mouth once Methylprednisolone (Medrol (Emiliano)) 4 mg tablets,dose pack Discontinued 0 PO per package directions 21 December 09, 2017 12:00am May 28, 2018 9:12am PO PER PKG DIR norethindrone 0.35 mg oral tablet (20 sources) Start: 09-14-2018 End: 01-17-2020 take 1 tablet by mouth once daily Norethindrone (Contraceptive) (Ortho Micronor) 0.35 mg tablet Discontinued 0.35 mg PO DAILY 84 0 December 02, 2019 8:43am January 17, 2020 9:07am omeprazole 40 mg delayed release oral capsule (20 sources) Proton Pump Inhibitor Start: 06-29-2021 End: 10-20-2023 take 1 capsule by mouth once daily Omeprazole 40 mg capsule,delayed release(DR/EC) Discontinued 40 mg PO DAILY 90 3 October 12, 2021 8:08am October 20, 2023 1:12pm Start: 06-07-2020 End: 04-04-2021 take 1 capsule by mouth once daily Omeprazole 40 mg capsule,delayed release(DR/EC) Discontinued 40 mg PO DAILY 30 June 07, 2020 1:00am April 04, 2021 9:52am ondansetron 8 mg oral tablet (6 sources) Serotonin-3 Receptor Antagonist Start: 06-18-2023 End: 10-20-2023 take 1 tablet by mouth every eight hours as needed for nausea and vomiting Ondansetron Hcl 8 mg tablet Discontinued 8 mg PO Q8H as needed for nausea and vomiting 30 June 18, 2023 1:00am October 20, 2023 1:12pm predniSONE 10 mg oral tablet (14 sources) Start: 07-07-2024 End: 12-21-2024 Prednisone 10 mg tablet Discontinued 10 mg PO daily 30 12 August 19, 2024 12:00am August 30, 2024 12:00am August 31, 2024 12:07am Unspecified contact dermatitis, unspecified cause Take 4 tabs once daily days 1-3 3 tabs once daily days 4-6 2 tabs once daily days 7-9 and 1 tab once daily days 10-12. Start: 09-20-2023 End: 09-25-2023 take 2 tablets by mouth once daily Prednisone 20 mg tablet Discontinued 40 mg PO DAILY 10 5 September 20, 2023 12:00am September 24, 2023 12:00am September 25, 2023 12:05am sucralfate 1000 mg oral tablet (10 sources) Aluminum Complex Start: 06-07-2020 End: 04-04-2021 take 1 tablet by mouth at bedtime Sucralfate (Carafate) 1 gram tablet Discontinued 1 g PO before meals and at bedtime 120 June 07, 2020 1:00am April 04, 2021 9:52am sulfamethoxazole 800 mg / trimethoprim 160 mg oral tablet (10 sources) Dihydrofolate Reductase Inhibitor Antibacterial, Sulfonamide Antimicrobial Start: 03-16-2020 End: 03-19-2020 Sulfamethoxazole- Trimethoprim (Bactrim Ds) 800-160 mg tablet Discontinued 1 {tbl} PO TWICE A DAY 6 3 0 March 16, 2020 1:00am March 18, 2020 1:00am March 19, 2020 1:02am tobramycin 3 mg/ml ophthalmic solution (14 sources) Aminoglycoside Antibacterial Start: 10-11-2024 End: 12-21-2024 Tobramycin 0.3 % drops Discontinued 1 NMA OPHTHALMIC Q2H 5 0 October 11, 2024 12:00am December 21, 2024 9:20am to affected eye while awake first 24 hours, then 3x/day on days 2-5 Start: 12-14-2019 End: 01-17-2020 take 0.3 drop(s) into the eye(s) every four hours Tobramycin 0.3 % drops Discontinued 2 NMA OPHTHALMIC Q4H 5 0 December 14, 2019 12:00am January 17, 2020 8:58am [facility] triamcinolone acetonide 0.005 mg/mg topical ointment (5 sources) Corticosteroid Start: 09-20-2023 End: 10-20-2023 Triamcinolone Acetonide 0.5 % ointment Discontinued 1 NMA TOPICAL THREE TIMES A DAY 15 0 September 20, 2023 12:00am October 20, 2023 1:12pm Problems Active Problems Problem Classification Problem Date Documented Da te Episodic/Chronic Contraceptive and procreative management (1 source) Encounter for contraceptive management, unspecified; Translations: [Unspecified contraceptive management] 03-25-2023 Episodic Essential hypertension (9 sources) Hypertensive disorder; Translations: [Essential (primary) hypertension] Onset: 03-04-2025 01-21-2022 Chronic Headache; including migraine (1 source) Headache; Translations: [Headache] 06-04-2024 Episodic Immunizations and screening for infectious disease (3 sources) At risk of sexually transmitted infection ; Translations: [Contact with and (suspected) exposure to infections with a predominantly sexual mode of transmission] Onset: 04-08-2024 12-21-2024 Episodic Menopausal disorders (1 source) Menopausal and female climacteric states; Translations: [Menopausal and female climacteric states] Onset: 03-04-2025 Chronic Other bone disease and musculoskeletal deformities (15 sources) Segmental and somatic dysfunction; Translations: [Segmental and somatic dysfunction of pelvic region] 05-24-2024 Episodic Other bone disease and musculoskeletal deformities (8 sources) Lumbar segmental dysfunction ; Translations: [Segmental and somatic dysfunction of lumbar region] 05-24-2024 Episodic Other female genital disorders (2 sources) Abnormal uterine bleeding; Translations: [Abnormal uterine and vaginal bleeding, unspecified] 12-21-2024 Chronic Comment on above: controlled w OCP Other injuries and conditions due to external causes (10 sources) Open fracture; Translations: [Other injury of unspecified body region, initial encounter] 01-17-2015 Episodic Other lower respiratory disease (10 sources) Cough; Translations: [Cough] 05-18-2021 Episodic Other nutritional; endocrine; and metabolic disorders (8 sources) Overweight; Translations: [Overweight] 01-21-2022 Episodic Other nutritional; endocrine; and metabolic disorders (2 sources) Overweight; Translations: [Overweight] Episodic Other skin disorders (1 source) Nonscarring hair loss, unspecified; Translations: [Nonscarring hair loss, unspecified] Onset: 03-04-2025 Episodic Spondylosis; intervertebral disc disorders; other back problems (8 sources) Degeneration of lumbosacral intervertebral disc; Translations: [Degeneration of intervertebral disc of lumbosacral region] 05-24-2024 Chronic Comment on above: L4/L5,L5/S1 Thyroid disorders (12 sources) Hypothyroidism; Translations: [Hypothyroidism, unspecified] Onset: 08-02-2024 07-02-2018 Chronic Unclassified (6 sources) Screening for malignant neoplasm [...] (routine) without abnormal findings] Onset: 02-26-2017 02-26-2017 Unclassified (1 source) Other intervertebral disc degeneration, lumbosacral region with discogenic back pain and lower extremity pain; Translations: [Other intervertebral disc degeneration, lumbosacral region with discogenic back pain and lower extremity pain] Onset: 06-24-2024 Past or Other Problems Problem Classification Problem Date Documented Da te Episodic/Chronic Allergic reactions (12 sources) Inflammatory dermatosis; Translations: [Dermatitis, unspecified] Onset: 07-07-2024 09-20-2023 Episodic Other bone disease and musculoskeletal deformities (1 source) Segmental and somatic dysfunction of lumbar region; Translations: [Segmental and somatic dysfunction of lumbar region] Onset: 06-24-2024 Episodic Other bone disease and musculoskeletal deformities (1 source) Segmental and somatic dysfunction of pelvic region; Translations: [Segmental and somatic dysfunction of pelvic region] Onset: 06-24-2024 Episodic Other circulatory disease (1 source) Elevated blood-pressure reading, without diagnosis of hypertension; Translations: [Elevated blood-pressure reading, without diagnosis of hypertension] Onset: 06-20-2016 Episodic Other screening for suspected conditions (not mental disorders or infectious disease) (20 sources) Patient encounter status; Translations: [Encounter for screening for malignant neoplasm of intestinal tract, unspecified] Onset: 11-04-2024 Episodic Comment on above: Nexplanon Other upper respiratory infections (18 sources) Acute maxillary sinusitis; Translations: [Pharyngitis] Onset: 01-27-2017 01-27-2017 Episodic Otitis media and related conditions (9 sources) Otitis media; Translations: [Otitis media, unspecified, unspecified ear] Onset: 01-27-2017 01-27-2017 Episodic Spondylosis; intervertebral disc disorders; other back problems (6 sources) Backache; Translations: [Dorsalgia, unspecified] Onset: 06-01-2024 05-24-2024 Episodic Results Test Name Value Interpretation Reference Range Facility Chlamydia/GC CATERINA aptimaon CHLAMY,NUC ACID Negative Normal Negative [facility] Comment on above: Performed By: #### L 7000.1800 #### [facility] [address] [place], [address] GC BY NUC ACID Negative Normal Negative [facility] Comment on above: Result Comment: Perf ormed at: =G - [facility] [address] [id number] Staff Electrical Engineer: Malissa Black MD, Phone: [phone] Performed By: #### L 7000.1800 #### [facility] [address] [place], [address] Chlamydia trachomatis rRNA d etection by probe and target amplification methodOrdered By: Migdalia Portillo on 12-21-2024 C. trachomatis rRNA CATERINA+probe Ql (Unsp spec) Negative Negative [facility] Neisseria gonorrhoeae nuclei c acid detection by amplified probe techniqueOrdered By: Migdalia Portillo on 12-21-2024 N. gonorrhoeae DNA CATERINA+probe Ql (Unsp spec) Negative Negative [facility] Comment on above: Performed at: =[facility] [address] [id number] Director: Malissa Black MD, Phone: [phone] No Panel InformationOrdered By: Migdalia Portillo on 12-21-2024 POC Trichomonas (Rapid) Negative [facility] Transmission Repairer Office Visit Reporton 12-21-2024 Transmission Repairer Office Visit Report [facility] [address], [address] [place] [address] OFFICE VISIT Date of Service: 12/21/24 MR#: [id number] Acct: [id number] Name: KAVIN GUERRERO AKIKO Rep #: [id number] : 1975 Provider: JANIE almazan Age/Sex: 49/F Location: [facility] Status: Signed Intake Vital Signs 05/24/24 13:10 12/21/24 09:14 12/21/24 09:21 Height 5 ft 11 in 5 ft 11 in 5 ft 11 in Weight: 214 lb 5 oz BMI 29.9 BP 140/84 H 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 Required: No Is patient in pain?: No Allergies No Known Allergies Allergy (Verified 12/21/24 09:25) Medications ???Medication ???Instructions ???Recorded ???Confirmed ???Type amlodipine 5 mg tablet 5 mg PO DAILY 01/17/20 12/21/24 Hi story levothyroxine 125 mcg tablet 175 mcg PO .every other day 12/21/24 History levothyroxine 200 mcg capsule 200 mcg PO .every other day 12/21/24 History quinapril 10 mg tablet 10 mg PO QHS 06/20/21 12/21/24 His tory indapamide 2.5 mg tablet 2.5 mg PO QAM 10/20/23 12/21/24 Hi story metoprolol succinate 50 mg 50 mg PO QHS 10/20/23 12/21/24 His tory tablet,extended release 24 hr levonorgestrel-ethin yl estradiol 1 tab PO QDAY #84 tabs 11/15/24 Rx 0.1 mg-20 mcg tablet (Aviansamantha) Is last menstrual period known: Yes Last Menstrual Period: 12/13/24 Post menopausal: No Patient : No : No Control Method: OCP PFSH Medical History Segmental dysfunction of lumbar region Wears glasses Alcohol use Thyroid disease Gastric reflux History of hiatal hernia Non-smoker Cardiology follow-up encounter Encounter for IUD removal Hypertension Hypothyroidism Surgical History s/p right leg surgery S/P laparoscopy History of cholecystectomy Family History Uncle Colon cancer Lung cancer Mother Diabetes Grandmother Diabetes Congestive heart failure Cancer skin CA Grandfather Diabetes Social History Smoking Status: Never smoker alcohol intake: current details: glass of wine nightly substance use type: does not use caffeine: Yes what type of physical activity do you participate in: none seatbelt use: always do you feel safe at home: Yes additional [facility] history: [facility] History 2 Elective abortions Hx Para 1 Spontaneous abortions Hx # Term Pregnancies Ectopic pregnancies Hx # Pregnancies Multiple births # of living children Past Pregnancies Del. Date Name GA/Weeks Outcome Route Bth Weight Infant Gen Labor Lgth Anesthesia Del Locatn Provider FOB Unknown -2002 HPI Encounter for routine gynecological examination Details: KAVIN GUERRERO is a 49 year old who presents for annual exam. Not currently sexually active, one new partner in last year. Denies concerns. Happy with OCP for cycle control. Last PAP: 2023 History of abnormal PAP: no Last mammogram: 10/2024 History of abnormal mammogram: no Colon cancer screenin Other preventative health care screenings: Samantha Her Female Reproductive History Last Menstrual Period: 12/13/24 Questions: metrorrhagia: No and sexually active: No ROS Const Constitutional: Denies fatigue, weight gain or weight loss Cardio Card: Denies chest pain Resp Resp: Denies cough or dyspnea on exertion GI GI: Denies abdominal pain, bloating, change in stool character, constipation or vomiting : Reports as per HPI; Denies difficulty voiding, pelvic pain, urinary frequency, urinary incontinence, urinary urgency, vaginal discharge or vaginal pruritus Exam Const General: cooperative, healthy appearing, no acute distress and well developed Orientation: alert, oriented to person and oriented to place HENND Head: normal to inspection Neck Neck: normal visual inspection Thyroid: thyroid normal Lymphatic: no lymphadenopathy noted Chest Breast inspection: normal inspection of the breasts and normal inspection of the axillae Breast palpation: normal palpation of the breasts, normal palpation of the axillae and no axillary lymphadenopathy Resp Effort Inspection: normal respiratory effort GI Palpation: soft, no masses and nontender Rectal Exam: deferred External Female Exam: normal external appearance and normal appearance of the urethra Urethra: normal appearance of the urethra and normal palpation Speculum Exam - Vagina: normal appearance of the vagina and normal vaginal discharge Speculum Exam - Cervix: normal appearance of the cervix Bimanual Exam- Vagina Ut (more content not included)... Normal [facility] Breast imaging reportOrdered By: Kj Armstrong on 11-01-2024 Study report [facility] Imaging Services [address], [place] [address] SCRN MAMM (CAD)W/DAVIAN BILAT MR#: [id number] Acct: [id number] Name: KAVIN GUERRERO AKIKO Rep #: [id number] : 1975 F 49 From: Igor Armstrong MD PCP: Dr. 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 TECHNIQUE: SCRN MAMM (CAD)W/DAVIAN BILAT COMPARISON: Prior exam(s) dated October 28, 2023.. FINDINGS: TISSUE DENSITY: There are scattered areas of fibroglandular density. Bilateral Breast Mammographic Findings: No significant masses, calcifications or other abnormalities are identified. No suspicious masses, areas of developing architectural distortion, or suspicious calcifications. There has been no significant interval change. BI/SCRN MAMM (CAD)W/DAVIAN BILAT IMPRESSION: Stable examination. OVERALL FINAL ASSESSMENT BI-RADS 1: NEGATIVE. RECOMMEND ANNUAL MAMMOGRAPHIC SCREENING. RECOMMENDATION: Routine annual follow-up in 1 Year A letter with findings and recommendations will be mailed to the patient. Reading Location: [place] [address] CC: JANIE David; Dr. Kingston Her MD ~ Sheeter Helper: Signed [facility] SCRN MAMM (CAD)W/DAVIAN BILATo n 11-01-2024 SCRN MAMM (CAD)W/DAVIAN BILAT [facility] Imaging Services [address] [place] [address] SCRN MAMM (CAD)W/DAVIAN BILAT MR#: [id number] Acct: [id number] Name: KAVIN GUERRERO AKIKO Rep #: [id number] : 1975 F 49 From: Kj hanson MD PCP: Dr. 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 TECHNIQUE: SCRN MAMM (CAD)W/DAVIAN BILAT COMPARISON: Prior exam(s) dated October 28, 2023.. FINDINGS: TISSUE DENSITY: There are scattered areas of fibroglandular density. Bilateral Breast Mammographic Findings: No significant masses, calcifications or other abnormalities are identified. No suspicious masses, areas of developing architectural distortion, or suspicious calcifications. There has been no significant interval change. BI/SCRN MAMM (CAD)W/DAVIAN BILAT IMPRESSION: Stable examination. OVERALL FINAL ASSESSMENT BI-RADS 1: NEGATIVE. RECOMMEND ANNUAL MAMMOGRAPHIC SCREENING. RECOMMENDATION: Routine annual follow-up in 1 Year A letter with findings and recommendations will be mailed to the patient. Reading Location: [place] [address] CC: JANIE David; Dr. Kingston Her MD Sheeter Helper: Signed Normal [facility] Urgent Care Visit Reporton 0 10-11-2024 Urgent Care Visit Report [facility] [address], [address] [place] [address] OFFICE VISIT Date of Service: 10/11/24 MR#: [id number] Acct: [id number] Name: KAVIN GUERRERO AKIKO Rep #: [id number] : 1975 Provider: THA Ragsdale Age/Sex: 49/F Location: [facility] Status: Signed with Addenda ADDENDUM by THA Ragsdale on 10/12/24 at 1119 HPI Details: I spoke w/ pt today for f/u, w/ Kavin noting resolved OS symptoms w/ both injection and exudate and discomfort resolving - noting compliance w/ Tobrex gtts as prescribed. Assessment and Plan Assessment and Plan Medications: New tobramycin 0.3% to affected eye while awake first 24 hours, then 3x/day on days 2-5 1 drp ophthalmic (eye) Q2H 5 mL 0RF Plan Details Goals Barriers: Goals Decrease pain Improve ROM Decrease radiculopathy Target Due Date 06/25/24 Barriers Decreased disc height L4/L5,L5/S1 10/12/24 1119 Date Cristobal Valenzuela cc: * Signed Intake Vital Signs 05/24/24 13:10 10/11/24 07:01 Height 5 ft 11 in BP 122/82 H Position Sitting Respiration 16 Pulse 64 Temp 98.1 F Pulse Oximetry (%) 97 Oxygen Delivery Method room air Intake Visit Reasons: CONCERN FOR PINK EYE Accompanied by: Self Allergies No Known Allergies Allergy (Verified 10/11/24 07:00) Medications ???Medication ???Instructions ???Recorded ???Confirmed ???Type amlodipine 5 mg tablet 5 mg PO DAILY 01/17/20 10/11/24 Hi story levothyroxine 125 mcg tablet 175 mcg PO .every other day 10/11/24 History levothyroxine 200 mcg capsule 200 mcg PO .every other day 10/11/24 History quinapril 10 mg tablet 10 mg PO QHS 06/20/21 10/11/24 His tory indapamide 2.5 mg tablet 2.5 mg PO QAM 10/20/23 10/11/24 Hi story levonorgestrel-ethin yl estradiol 1 tab PO QDAY #84 tabs 10/20/23 Rx 0.1 mg-20 mcg tablet (Aviane) metoprolol succinate 50 mg 50 mg PO QHS 10/20/23 10/11/24 His tory tablet,extended release 24 hr prednisone 10 mg tablet 10 mg PO DAILY #30 tabs 07/07/24 0 10/11/24 Rx pseudoephedrine 60 mg-DM 15 1 tab PO Q4-6H PRN cold symptoms 0 09/30/24 10/11/24 Rx mg-guaifenesin 400 mg tablet #30 tabs (Capmist DM) tobramycin 0.3 % eye drops 1 drp ophthalmic (eye) Q2H #5 mL 0 10/11/24 10/11/24 Rx Nurse's Note: Patient left eye feels swollen and irritated. Patient was weeding whacking yesterday and she believes she got stuff in her eye. Patient denies any itching but she does have swelling and redness. [facility] Medical History Segmental dysfunction of lumbar region Wears glasses Alcohol use Thyroid disease Gastric reflux History of hiatal hernia Non-smoker Cardiology follow-up encounter Encounter for IUD removal Hypertension Hypothyroidism Surgical History s/p right leg surgery S/P laparoscopy History of cholecystectomy Family History Uncle Colon cancer Lung cancer Mother Diabetes Grandmother Diabetes Congestive heart failure Cancer skin CA Grandfather Diabetes Social History Smoking Status: Never smoker alcohol intake: current details: glass of wine nightly substance use type: does not use caffeine: Yes what type of physical activity do you participate in: none seatbelt use: always do you feel safe at home: Yes additional social history: - [facility] HPI HPI Details: KAVIN GUERRERO, is a 49 F who presents to the office today for initial evaluation new onset left eye conjunctival injection with exudate beginning last evening after having grass blow into left eye while weed-wacking her lawn. No vision changes or eye globe pain. No complaints of fever, chills, sweats, lightheadedness/dizz iness, nausea/vomiting. No [id number]-arp-[id number] ophthalmic drops tried to assist. No other associated symptoms and no other alleviating/aggravat ing factors. ROS Const Constitutional: No other (As above) Exam Const General: cooperative, healthy appearing and no acute distress Orientation: alert, awake and oriented x3 HENMT Head: normal to inspection Ears: hearing grossly normal bilaterally and external ears normal Nose: external nose normal and no nasal discharge Eyes General: appearance normal, both eyes and all related structures Other: Except left conjunctival injection with exudate; negative limbus OU Neck Neck: normal visual inspection, no meningeal signs and supple Resp Effort Inspection: normal respiratory effort and able to speak in complete sentences Cardio Rate: regular rate Pulses: radial pulses present Skin (more content not included)... Normal [facility] Urgent Care Visit Reporton 0 08-20-2024 Urgent Care Visit Report [facility] [address] , [address] [place] [address] OFFICE VISIT Date of Service: 08/19/24 MR#: [id number] Acct: [id number] Name: KAVIN GUERRERO Rep #: [id number] : 1975 Provider: THA Pineda Age/Sex: 49/F Location: [facility] Status: Signed Intake Vital Signs 05/24/24 13:10 Height 5 ft 11 in Intake Visit Reasons: POISON NATALIE Chief Complaint: Poison natalie rash Allergies No Known Allergies Allergy (Verified 07/07/24 08:40) PFSH Medical History Segmental dysfunction of lumbar region Wears glasses Alcohol use Thyroid disease Gastric reflux History of hiatal hernia Non-smoker Cardiology follow-up encounter Encounter for IUD removal Hypertension Hypothyroidism Surgical History s/p right leg surgery S/P laparoscopy History of cholecystectomy Family History Uncle Colon cancer Lung cancer Mother Diabetes Grandmother Diabetes Congestive heart failure Cancer skin CA Grandfather Diabetes Social History Smoking Status: Never smoker alcohol intake: current details: glass of wine nightly substance use type: does not use caffeine: Yes what type of physical activity do you participate in: none seatbelt use: always do you feel safe at home: Yes additional social history: - [facility] HPI HPI Chief Complaint: Poison natalie rash Details: KAVIN GUERRERO, is a 49 F who presents to the office today for complaint of poison natalie rash after doing some yard work recently. Patient localized the rash to her arms and legs. She denies sh ortness of breath, difficulty breathing or chest pain. No other associated symptoms or alleviating/aggravat ing factors. ROS Const Constitutional: Positive for other (ROS negative x6 except what was placed in HPI) Exam Const General: cooperative and healthy appearing HENMT Head: normocephalic and atraumatic Ears: hearing grossly normal bilaterally Nose: external nose normal Face and sinus: normal facial exam and face symmetric Mouth: oral mucosae normal Throat: posterior oropharynx normal Resp Effort Inspection: normal respiratory effort Skin Other: Grouped vesicular lesions bilateral arms and legs. Neuro General: patient alert Psych Appearance: grossly normal Mental Status: mental status grossly normal Coding Level of Care Code Off vis,est,level 3 Diagnoses Irritant contact dermatitis due to plant L24.7 Assessment and Plan Assessment and Plan (1) Irritant contact dermatitis due to plant: Status: Acute Plan: Prednisone taper as prescribed today. Encouraged to get plenty of rest, drink lots of clear liquids, and use Benadryl for comfort. Patient also educated on other symptomatic management techniques. To be seen in 7-10 days if no improvement; sooner if worsening of symptoms. Patient advised of potential red flags and when appropriate to report to the ED. Patient verbalized understanding and agreement with all the above. Medications: New prednisone Take 4 tabs once daily days 1-3 3 tabs once daily days 4-6 2 tabs once daily days 7-9 and 1 tab once daily days 10-12. 10 mg PO QDAY 30 tabs 0RF 12 days L25.9 - Unspecified contact dermatitis, unspecified cause Plan Details Goals Barriers: Goals Decrease pain Improve ROM Decrease radiculopathy Target Due Date 06/25/24 Barriers Decreased disc height L4/L5,L5/S1 08/20/24 1309 Date Sancho Knox Signature: Date (if applicable) CC: Normal [facility] Anion gap in Serum or Plasma Ordered By: Naty David on 07-30-2024 Anion gap [Moles/Vol] 11 mmol/L - [facility] BUN/creatinine ratioOrdered By: Naty David on 07-30-2024 Urea nitrogen/Creatinine [Mass ratio] 18.1 mg/mg - [facility] Basic Metabolic Profile (BMP )on 07-30-2024 BUN/CRE 18.1 RATIO Normal - [facility] Comment on above: Order Comment: Order Date: 07/28/24 Order Info: 0667-1 - BMP Order Info: [id number] - LIPID Order Info: 3016-3 - TSH Performed By: #### L 500.2500, L501.9520, L500.4100 #### [facility] [address] [place], [address] Calcium [Mass/Vol] 9.4 mg/dL Normal 7.6-11.0 [facility] Comment on above: Order Comment: Order Date: 07/28/24 Order Info: 666-04 - BMP Order Info: - LIPID Order Info: 3 - TSH Performed By: #### L 500.2500, L501.9520, L500.4100 #### [facility] [address] [place], [address] Chloride [Moles/Vol] 103 mmol/L Normal 98-108 [facility] Comment on above: Order Comment: Order Date: 07/28/24 Order Info: 666-04 - BMP Order Info: - LIPID Order Info: 3015-06 - TSH Performed By: #### L 500.2500, L501.9520, L500.4100 #### [facility] [address] [place], [address] CO2 [Moles/Vol] 24.8 mmol/L Normal 21.0-32.0 [facility] Comment on above: Order Comment: Order Date: 07/28/24 Order Info: 666-04 - BMP Order Info: - LIPID Order Info: 3 - TSH Performed By: #### L 500.2500, L501.9520, L500.4100 #### [facility] [address] [place], [address] Creatinine [Mass/Vol] 0.69 mg/dL Low 0.70-1.20 [facility] Comment on above: Order Comment: Order Date: 07/28/24 Order Info: 666-04 - BMP Order Info: - LIPID Order Info: 3 - TSH Performed By: #### L 500.2500, L501.9520, L500.4100 #### [facility] [address] [place], [address] GAP 11 Normal 5-15 [facility] Comment on above: Order Comment: Order Date: 07/28/24 Order Info: 666-04 - BMP Order Info: - LIPID Order Info: 3015-06 - TSH Performed By: #### L 500.2500, L501.9520, L500.4100 #### [facility] [address] [place], [address] GFR/1.73 sq M.predicted among non-blacks MDRD (S/P/Bld) [Vol rate/Area] 107 mL/min/{1.73_m2} Normal >60 [facility] Comment on above: Order Comment: Order Date: 07/28/24 Order Info: 666-04 - BMP Order Info: - LIPID Order Info: 3015-06 - TSH Result Comment: mL/m in/1.73m2 CKD-EPI Creatinine Equation (2020) Performed By: #### L 500.2500, L501.9520, L500.4100 #### [facility] [address] [place], [address] Glucose [Mass/Vol] 101 mg/dL High 70-99 [facility] Comment on above: Order Comment: Order Date: 07/28/24 Order Info: 666-04 - BMP Order Info: - LIPID Order Info: 3015-06 - TSH Performed By: #### L 500.2500, L501.9520, L500.4100 #### [facility] [address] [place], [address] Potassium [Moles/Vol] 4.6 mmol/L Normal 3.3-5.1 [facility] Comment on above: Order Comment: Order Date: 07/28/24 Order Info: 666-04 - BMP Order Info: - LIPID Order Info: 3015-06 - TSH Performed By: #### L 500.2500, L501.9520, L500.4100 #### [facility] [address] [place], [place], [address] Sodium [Moles/Vol] 139 mmol/L Normal 133-145 [facility] Comment on above: Order Comment: Order Date: 07/28/24 Order Info: 0667-1 - BMP Order Info: [id number] - LIPID Order Info: 3 - TSH Performed By: #### L 500.2500, L501.9520, L500.4100 #### [facility] [address] [place], [address] Urea nitrogen [Mass/Vol] 13 mg/dL Normal 4-19 [facility] Comment on above: Order Comment: Order Date: 07/28/24 Order Info: 06 - BMP Order Info: [id number] - LIPID Order Info: 3015-06 - TSH Performed By: #### L 500.2500, L501.9520, L500.4100 #### [facility] [address] [place], [address] Calculated very low density lipoprotein (VLDL) cholesterol measurementOrdered By: Naty David on 07-30-2024 Calculated very low density lipoprotein (VLDL) cholesterol measurement 21 mg/dL 5-40 [facility] VLDL Cholesterol 21 mg/dL 5-40 [facility] Carbon dioxide, total [Moles /volume] in Central venous bloodOrdered By: Naty David on 07-30-2024 CO2 [Moles/Vol] 24.8 mmol/L 21.0-32.0 [facility] Chloride assayOrdered By: Maurizio David on 07-30-2024 Chloride [Moles/Vol] 103 mmol/L 98-108 [facility] GFR/1.73 sq M.predicted austen g non-blacks MDRD (S/P/Bld) [Vol rate/Area]Ordered By: Naty David on 07-30-2024 Estimated GFR (MDRD) Non-Af Amer 107 >60 [facility] Comment on above: mL/min/1.73m2 CKD-EP I Creatinine Equation (2020) Glomerular filtration rate ( GFR) estimation/1.73 sq m using serum, plasma, or whole bOrdered By: Naty David on 07-30-2024 GFR/1.73 sq M.predicted among non-blacks MDRD (S/P/Bld) [Vol rate/Area] 107 mL/min/{1.73_m2} >60 [facility] Comment on above: mL/min/1.73m2 CKD-EP I Creatinine Equation (2020) LDL calc ser/plasOrdered By: Naty David on 07-30-2024 Cholesterol in LDL [Mass/Vol] 102 mg/dL [facility] Comment on above: Qldcxoggiv=819-237 m g/dL & Higher Jbwy=372 mg/dL or greater LDL Cholesterol, Calculated 102 mg/dL [facility] Comment on above: Tseuxuilto=642-713 m g/dL & Higher Chkz=087 mg/dL or greater Lipid Profileon 07-30-2024 CHOL:HDL 2.89 Normal [facility] Comment on above: Order Comment: Order Date: 07/28/24 Order Info: 0667-1 - BMP Order Info: [id number] - LIPID Order Info: 3016-3 - TSH Performed By: #### L 500.2500, L501.9520, L500.4100 #### [facility] [address] [place], [address] Cholesterol [Mass/Vol] 188 mg/dL Normal <=200 [facility] Comment on above: Order Comment: Order Date: 07/28/24 Order Info: 0667-1 - BMP Order Info: [id number] - LIPID Order Info: 3016-3 - TSH Result Comment: Chol esterol level, Desirable <200 mg/dL Borderline high cholesterol 200-239 mg/dL High cholesterol >=240 mg/dL Recommendations of the NCEP Adult Treatment Panel for the following risk-cutoff thresholds for the [place] population. Performed By: #### L 500.2500, L501.9520, L500.4100 #### [facility] [address] [place], [address] Cholesterol in HDL [Mass/Vol] 65 mg/dL Normal [facility] Comment on above: Order Comment: Order Date: 07/28/24 Order Info: 06- - BMP Order Info: - LIPID Order Info: 3015-06 - TSH Result Comment: Ceci onal Cholesterol Education Program (NCEP) guidelines: <40 mg/dL: Low HDL-cholesterol (major risk factor for CHD) >= 60 mg/dL: High HDL-cholesterol (negative risk factor for CHD) HDL-cholesterol is affected by a number of factors, e.g. smoking, exercise, hormones, sex and age. Performed By: #### L 500.2500, L501.9520, L500.4100 #### [facility] [address] [place], [address] Cholesterol in LDL [Mass/Vol] 102 mg/dL Normal [facility] Comment on above: Order Comment: Order Date: 07/28/24 Order Info: 06 - BMP Order Info: - LIPID Order Info: 3015-06 - TSH Result Comment: Bord qmxisq=458-259 mg/dL Higher Ezwp=459 mg/dL or greater Performed By: #### L 500.2500, L501.9520, L500.4100 #### [facility] [address] [place], [address] Cholesterol in VLDL [Mass/Vol] 21 mg/dL Normal 5-40 [facility] Comment on above: Order Comment: Order Date: 07/28/24 Order Info: 06 - BMP Order Info: - LIPID Order Info: 3015-06 - TSH Performed By: #### L 500.2500, L501.9520, L500.4100 #### [facility] [address] [place], [address] Triglyceride [Mass/Vol] 106 mg/dL Normal [facility] Comment on above: Order Comment: Order Date: 07/28/24 Order Info: 0667- - BMP Order Info: 23590-4 - LIPID Order Info: 3 - TSH Result Comment: The drugs N-Acetylcysteine and Metamizole may falsely depress this assay. Normal range: <150 mg/dL Borderline High: 150-199 mg/dL High: 200-499 mg/dL Very High: >500 mg/dL Performed By: #### L 500.2500, L501.9520, L500.4100 #### [facility] [address] [place], [address] Potassium (Unsp spec) [Mass/ Vol]Ordered By: Naty David on 07-30-2024 Potassium [Moles/Vol] 4.6 mmol/L 3.3-5.1 [facility] Potassium measurement (mass/ volume)Ordered By: Naty David on 07-30-2024 Potassium (Unsp spec) [Mass/Vol] 4.6 mmol/L 3.3-5.1 [facility] Screening total cholesterol/ high density lipoprotein (HDL) cholesterol ratioOrdered By: Natyaayush David on 07-30-2024 Cholesterol.total/Chol esterol in HDL [Mass ratio] 2.89 {ratio} [facility] Serum creatinine measurement (mass/volume)Ordered By: Natyaayush David on 07-30-2024 Creatinine [Mass/Vol] 0.69 mg/dL Low 0.70-1.20 [facility] Serum glucose measurement (m ass/volume)Ordered By: Naty David on 07-30-2024 Glucose [Mass/Vol] 101 mg/dL High 70-99 [facility] Serum or plasma calcium jevon urement (mass/volume)Ordered By: Natyaayush David on 07-30-2024 Calcium [Mass/Vol] 9.4 mg/dL 7.6-11.0 [facility] Serum or plasma cholesterol in HDL measurement (mass/volume)Ordered By: Oracle Joann on 07-30-2024 Cholesterol in HDL [Mass/Vol] 65 mg/dL >40 [facility] Comment on above: National Cholesterol Education Program (NCEP) guidelines:<40 mg/dL: Low HDL-cholesterol (major risk factor for CHD)>= 60 mg/dL: High HDL-cholesterol (negative risk factor for CHD)HDL-cholesterol is affected by a number of factors, e.g. smoking, exercise, hormones, sex and age. Serum or plasma cholesterol measurement (mass/volume)Ordered By: Naty David on 07-30-2024 Cholesterol [Mass/Vol] 188 mg/dL <201 [facility] Comment on above: Cholesterol level, D esirable <200 mg/dLBorderline high cholesterol 200-239 mg/dLHigh cholesterol >=240 mg/dLRecommendations of the NCEP Adult Treatment Panel for the following risk-cutoff thresholds for the [place] population. Serum or plasma urea nitroge n measurement (mass/volume)Ordered By: Naty David on 07-30-2024 Urea nitrogen [Mass/Vol] 13 mg/dL 4-19 [facility] Sodium levelOrdered By: Naty David on 07-30-2024 Sodium [Moles/Vol] 139 mmol/L 133-145 [facility] TSH DL <= 0.005 mIU/L QnOrde red By: Naty David on 07-30-2024 Thyroid Stimulating Hormone (TSH) 0.050 uIU/mL Low 0.300-4.200 [facility] TSH Qn 0.050 uIU/mL Low 0.300-4.200 [facility] Thyroid Stim Hormone (TSH)on 07-30-2024 TSH 0.050 uIU/mL Low 0.300-4.200 [facility] Comment on above: Order Comment: Order Date: 07/28/24 Order Info: 0667-1 - BMP Order Info: [id number] - LIPID Order Info: 3016-3 - TSH Performed By: #### L 500.2500, L501.9520, L500.4100 #### [facility] [address] [place], [address] Triglycerides measurementOrd ered By: Naty David on 07-30-2024 Triglyceride [Mass/Vol] 106 mg/dL <199 [facility] Comment on above: The drugs N-Acetylcy steine and Metamizole may falsely depress this assay. Normal range: <150 mg/dLBorderline High: 150-199 mg/dLHigh: 200-499 mg/dLVery High: >500 mg/dL Urgent Care Visit Reporton 0 07-07-2024 Urgent Care Visit Report [facility] [address], [address] [place] [address] OFFICE VISIT Date of Service: 07/07/24 MR#: [id number] Acct: [id number] Name: KAVIN GUERRERO Rep #: [id number] : 1975 Provider: THA Ragsdale Age/Sex: 49/F Location: [facility] Status: Signed Intake Vital Signs 05/24/24 13:10 07/07/24 08:41 Height 5 ft 11 in BP 122/78 H Position Sitting Respiration 14 Pulse 70 Pulse Oximetry (%) 97 Oxygen Delivery Method room air Intake Visit Reasons: RASH ALL OVER BODY Allergies No Known Allergies Allergy (Verified 07/07/24 08:40) Medications ???Medication ???Instructions ???Recorded ???Confirmed ???Type amlodipine 5 mg tablet 5 mg PO DAILY 01/17/20 07/07/24 Hi story levothyroxine 125 mcg tablet 175 mcg PO .every other day 06/04/24 History levothyroxine 200 mcg capsule 200 mcg PO .every other day 07/07/24 History quinapril 10 mg tablet 10 mg PO QHS 06/20/21 07/07/24 His tory indapamide 2.5 mg tablet 2.5 mg PO QAM 10/20/23 07/07/24 Hi story levonorgestrel-ethin yl estradiol 1 tab PO QDAY #84 tabs 10/20/23 Rx 0.1 mg-20 mcg tablet (Aviane) metoprolol succinate 50 mg 50 mg PO QHS 10/20/23 07/07/24 His tory tablet,extended release 24 hr prednisone 10 mg tablet 10 mg PO DAILY #30 tabs 07/07/24 0 07/07/24 Rx Nurse's Note: Patient thinks she has poison Natalie on both hands Rt leg, face and right ear. [facility] Medical History Segmental dysfunction of lumbar region Wears glasses Alcohol use Thyroid disease Gastric reflux History of hiatal hernia Non-smoker Cardiology follow-up encounter Encounter for IUD removal Hypertension Hypothyroidism Surgical History s/p right leg surgery S/P laparoscopy History of cholecystectomy Family History Uncle Colon cancer Lung cancer Mother Diabetes Grandmother Diabetes Congestive heart failure Cancer skin CA Grandfather Diabetes Social History Smoking Status: Never smoker alcohol intake: current details: glass of wine nightly substance use type: does not use caffeine: Yes what type of physical activity do you participate in: none seatbelt use: always do you feel safe at home: Yes additional social history: - [facility] HPI HPI Details: KAVIN GUERRERO, is a 49 F who presents to the office today for initial evaluation status post poison natalie exposure after pulling weeds in her flower garden approximately 3-4 days ago. Patient states she has used multiple ddio-epd-gridiqe topical applications as well as oral Benadryl without relief of symptoms. She notes pruritic rash to face, R external ear, LUE, RLE without excoriations. No complaints of constricted/pruritic airway or chest pain/shortness of breath/wheeze/dyspne a on exertion. No other associated symptoms and no other alleviating/aggravat ing factors. ROS Const Constitutional: No other (As above) Exam Const General: cooperative, healthy appearing and no acute distress Nutritional Appearance: average body habitus Orientation: alert, awake and oriented x3 HENMT Head: normal to inspection Ears: hearing grossly normal bilaterally, external ears normal Nose: external nose normal, nares normal, septum normal and no nasal discharge Face and sinus: normal facial exam Mouth: oral mucosae normal, lip normal, tongue normal and oropharynx normal Throat: posterior oropharynx normal, tonsils normal, uvula midline Eyes General: appearance normal, both eyes and all related structures Neck Neck: normal visual inspection Chest Chest palpation inspection: normal inspection of the chest Resp Effort Inspection: normal respiratory effort and able to speak in complete sentences Cardio Rate: regular rate Pulses: radial pulses present GI Inspection: normal to inspection Skin General: no rashes or lesions noted Other: Except clustered papulovesicular rash to rash to face, R external ear, LUE, RLE (RLE not visualized on exam) Neuro General: patient alert, patient awake and patient oriented x3 Cognition: normal cognition Speech: speech normal Extrem General: normal to inspection Psych Appearance: grossly normal Mental Status: mental status grossly normal Mood: congruent mood Affect: normal affect Speech and Movement: speech and movement normal Attitude: cooperative Diagnoses Contact dermatitis due to poison natalie L23.7 Assessment and Plan Assessment and Plan (1) Contact dermatitis due to poison natalie: Status: Acute Plan: Ketorolac 40 mg IM x 1 to left deltoid in office today. Prednisone as prescribed today. Suppor (more content not included)... Normal [facility] Chiropractic Reporton 2024 Chiropractic Report [facility] [address] [place] [address] OFFICE VISIT Date of Service: 06/24/24 MR#: [id number] Acct: [id number] Name: KAVIN GUERRERO AKIKO Rep #: [id number] : 1975 Provider: CALEB Ash Age/Sex: 49/F Location: [facility] Status: Signed Intake Vital Signs 05/24/24 13:10 Height 5 ft 11 in Intake Visit Reasons: BACK PAIN Chief Complaint: Back pain Allergies No Known Allergies Allergy (Verified 06/04/24 15:33) [facility] Medical History Segmental dysfunction of lumbar region Wears glasses Alcohol use Thyroid disease Gastric reflux History of hiatal hernia Non-smoker Cardiology follow-up encounter Encounter for IUD removal Hypertension Hypothyroidism Surgical History s/p right leg surgery S/P laparoscopy History of cholecystectomy Family History Uncle Colon cancer Lung cancer Mother Diabetes Grandmother Diabetes Congestive heart failure Cancer skin CA Grandfather Diabetes Social History Smoking Status: Never smoker alcohol intake: current details: glass of wine nightly substance use type: does not use caffeine: Yes what type of physical activity do you participate in: none seatbelt use: always do you feel safe at home: Yes additional social history: [facility] HPI BACK PAIN Chief Complaint: Back pain Visit Number: 2 Details: Kavin is a 49 year old female here to follow up on low back pain. Pt reports her last adjustment was effective in relieving her low back pain and left side sciatica. She states her low back is a mild tightness across bilaterally today. She states her discomfort is typically worse on the left side. 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 Sitting, standing, walking and laying down also exacerbate her pain. She denies new injury, numbness, tingling or radiculopathy today. She also get tightness and restriction in her upper back, as this is where she carries her stress. She treats pain at home with heat, ice, stretching and NSAID's which are somewhat helpful. She states chiropractic adjustments and E-stim are helpful in relieving her pain and discomfort. Location: left low back/upper back Duration: intermittent Aggravating or associated factors: standing, sitting, walking,stress Relieving factors: chiro Pain Quality: aching, dull and sharp Exam Musc General: Yes normal posture, normal gait, joint tenderness and decreased range of motion; No muscle weakness Thoracic/Lumber: No thoracic and lumbar spine normal to inspection (L short leg .5in), Yes Lasegue's sign positive on the left, Yes paraspinal tenderness bilaterally in the upper thoracic and in the mid thoracic and on the left greater than right (lumbopelvic), Yes thoraco-lumbar spasm bilaterally (trap) and on the left greater than right (lumbar paraspinal, QL) and Yes misalignment T3, T4, T5, L2, L3, L4, L5, RIL and LIL Sacroiliac joints: on the left tender to palpation Office Procedures Procedures - Chiropractic Procedures Manipulation: Lumbar L3, Thoracic T4 and Pelvis LIL Manipulation: 3-4 regions Electronic Stimulation: Yes Electrical Stimulation: Lumbar 15 mins (20) mA Therapy Performed by:: Cleopatra Hernadez Traction, Mechanical: Yes Patient Response: positive Assessment and Plan Assessment and Plan (1) Segmental dysfunction of lumbar region: Status: Acute (2) DDD (degenerative disc disease), lumbosacral: Status: Chronic Qualifiers: Disc-related pain type: discogenic back pain and lower extremity pain Qualified Code(s): M51.372 - Other intervertebral disc degeneration, lumbosacral region with discogenic back pain and lower extremity pain Comment: L4/L5,L5/S1 (3) Segmental and somatic dysfunction of pelvic region: Status: Acute (4) Segmental and somatic dysfunction of thoracic region: Status: Acute Orders: Orders Chiropractic Treatments Today M51.372 - Other intervertebral disc degeneration, lumbosacral region with discogenic back pain and lower extremity pain, M99.03 - Segmental and somatic dysfunction of lumbar region, M99.05 - Segmental and somatic dysfunction of pelvic region Plan Patient was treated without incident. She is showing much improvement and hasn't had the LB sharp shooting pain since her last visit. Continue care. Plan Details Goals Barriers: Goals Decrease pain Improve ROM Decrease radiculopathy Target Due Date 06/25/24 Barriers Decreased disc height L4/L5,L5/S1 Follow Up: 1 x wk x 4 wks (06/01) Coding Level of Care Code No Charge Diagnoses Segmental dysfunction of lumbar region M9 (more content not included)... Normal [facility] Urgent Care Visit Reporton 0 06-04-2024 Urgent Care Visit Report [facility] [address], [address] [place] [address] OFFICE VISIT Date of Service: 06/04/24 MR#: [id number] Acct: [id number] Name: KAVIN GUERRERO AKIKO Rep #: [id number] : 1975 Provider: THA Pineda Age/Sex: 49/F Location: [facility] Status: Signed Intake Vital Signs 05/24/24 13:10 06/04/24 15:32 Height 5 ft 11 in BP 124/80 H Position Sitting Pulse 78 Temp 98.7 F Temp Source Oral Pulse Oximetry (%) 98 Oxygen Delivery Method room air Intake Visit Reasons: Headache Accompanied by: Self Allergies No Known Allergies Allergy (Verified 06/04/24 15:33) Medications ???Medication ???Instructions ???Recorded ???Confirmed ???Type amlodipine 5 mg tablet 5 mg PO DAILY 01/17/20 06/04/24 Hi story levothyroxine 125 mcg tablet 175 mcg PO .every other day 06/04/24 History levothyroxine 200 mcg capsule 200 mcg PO .every other day 06/04/24 History quinapril 10 mg tablet 10 mg PO QHS 06/20/21 06/04/24 His tory indapamide 2.5 mg tablet 2.5 mg PO QAM 10/20/23 06/04/24 Hi story levonorgestrel-ethin yl estradiol 1 tab PO QDAY #84 tabs 10/20/23 Rx 0.1 mg-20 mcg tablet (Aviane) metoprolol succinate 50 mg 50 mg PO QHS 10/20/23 06/04/24 His tory tablet,extended release 24 hr triamcinolone acetonide 40 mg/mL 40 mg/mL Suspension#1 Samples 11/1906/04/24 Sample suspension for injection (Kenalog) Nurse's Note: Mary has a Headache that has been going on since . [facility] Medical History (Updated 05/24/24 @ 14:[address] Amita Grover, [place]) Segmental dysfunction of lumbar region Wears glasses Alcohol use Thyroid disease Gastric reflux History of hiatal hernia Non-smoker Cardiology follow-up encounter Encounter for IUD removal Hypertension Hypothyroidism Surgical History s/p right leg surgery S/P laparoscopy History of cholecystectomy Family History Uncle Colon cancer Lung cancer Mother Diabetes Grandmother Diabetes Congestive heart failure Cancer skin CA Grandfather Diabetes Social History Smoking Status: Never smoker alcohol intake: current details: glass of wine nightly substance use type: does not use caffeine: Yes what type of physical activity do you participate in: none seatbelt use: always do you feel safe at home: Yes additional social history: - [facility] HPI HPI Details: KAVIN GUERRERO, is a 49 F who presents to the office today for complaint of headache and cough for the past several days. Patient also states having sinus congestion and drainage. She denies fever, chills, sweats. No nausea, vomiting or diarrhea. No hemoptysis, shortness of breath or difficulty breathing. No other associated symptoms or alleviating/aggravat ing factors. ROS Const Constitutional: Positive for other (ROS negative x6 except what was placed in HPI) Exam Const General: cooperative and well developed HENMT Head: normal to inspection and atraumatic Ears: hearing grossly normal bilaterally Nose: nasal discharge clear Face and sinus: normal facial exam Mouth: oral mucosae normal Throat: abnormal tonsil bilaterally hypertrophy 1+ Resp Effort Inspection: normal respiratory effort and no audible wheezes Auscultation: Bilateral: Clear to Auscultation Cardio Rate: regular rate Rhythm: regular rhythm Neuro General: patient alert Psych Appearance: grossly normal Mental Status: mental status grossly normal Coding Level of Care Code Off vis,est,level 3 Diagnoses Headache R51.9 Assessment and Plan Assessment and Plan (1) Headache: Plan: Kenalog injection in the office today. Encouraged to get plenty of rest, drink lots of clear liquids, and use Tylenol or Ibuprofen (unless contraindicated) for fever and comfort. Patient also educated on other symptomatic management techniques. To be seen in 7-10 days if no improvement; sooner if worsening of symptoms. Patient advised of potential red flags and when appropriate to report to the ED. Patient verbalized understanding and agreement with all the above. Medications: New triamcinolone acetonide (Kenalog) 1.5ml IM Left Glute Muscle [Sample] #1 Plan Details Goals Barriers: Goals Decrease pain Improve ROM Decrease radiculopathy Target Due Date 06/25/24 Barriers Decreased disc height L4/L5,L5/S1 06/04/24 1464 Date Sancho Knox Signature: Date (if applicable) CC: Normal [facility] Chiropractic Reporton 2024 Chiropractic Report [facility] [address] [place] [address] OFFICE VISIT Date of Service: 05/24/24 MR#: [id number] Acct: [id number] Name: KAVIN GUERRERO Rep #: [id number] : 1975 Provider: DC Dr. Amita Do ssi Age/Sex: 49/F Location: [facility] Status: Signed Intake Vital Signs 11/12/23 12:46 Height 5 ft 11 in Intake Visit Reasons: EST CARE Chief Complaint: Back pain Is patient in pain?: Yes (left low back) Pain scale (1-10): 9 Allergies No Known Allergies Allergy (Verified 05/24/24 13:14) Medications ???Medication ???Instructions ???Recorded ???Confirmed ???Type amlodipine 5 mg tablet 5 mg PO DAILY 01/17/20 05/24/24 History levothyroxine 125 mcg tablet 175 mcg PO .every other day 06/20/21 05/24/24 History levothyroxine 200 mcg capsule 200 mcg PO .every other day 06/20/21 05/24/24 History quinapril 10 mg tablet 10 mg PO QHS 06/20/21 05/24/24 History indapamide 2.5 mg tablet 2.5 mg PO QAM 10/20/23 05/24/24 History levonorgestrel-ethin yl estradiol 1 tab PO QDAY #84 tabs 10/20/23 05/24/24 Rx 0.1 mg-20 mcg tablet (Aviane) metoprolol succinate 50 mg 50 mg PO QHS 10/20/23 05/24/24 History tablet,extended release 24 hr PFS Medical History (Updated 05/24/24 @ 14:[address] Amita Grover, [place]) Segmental dysfunction of lumbar region Wears glasses Alcohol use Thyroid disease Gastric reflux History of hiatal hernia Non-smoker Cardiology follow-up encounter Encounter for IUD removal Hypertension Hypothyroidism Surgical History s/p right leg surgery S/P laparoscopy History of cholecystectomy Family History Uncle Colon cancer Lung cancer Mother Diabetes Grandmother Diabetes Congestive heart failure Cancer skin CA Grandfather Diabetes Social History Smoking Status: Never smoker alcohol intake: current details: glass of wine nightly substance use type: does not use caffeine: Yes what type of physical activity do you participate in: none seatbelt use: always do you feel safe at home: Yes additional social history: [facility] EST CARE Chief Complaint: Back pain Visit Number: 1 Details: Kavin Thomson is a 49 year old female who present for initial evaluation of back pain. She reports a several year history of intermittent low back pain but states it has progressively been getting worse over the last few months. She complains of low back pain that is worse on the left side. She does experience sciatic pain that extends into her left leg and foot at times. She does experience numbness and tingling into her left leg. When she experiences the pain her left leg will feel weak almost like it is going to give out. 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 Sitting, standing, walking and laying down also exacerbate her pain. At home she uses heat, ice, stretching and NSAID's which briefly reduce her pain. When she has these episodes the pain can be severe a 9/10. She had an instance several years back where she felt like she injured her back and has had exacerbations ever since. Location: left low back Duration: intermittent, frequent Aggravating or associated factors: work, sitting, standing, walking, laying down Treatment: heat, ice, stretching, NSAID's Pain Quality: aching, dull, sharp and radiating Current Sensation: weakness/looseness Exam Musc General: Yes normal posture, normal gait, joint tenderness and decreased range of motion; No muscle weakness Thoracic/Lumber: No thoracic and lumbar spine normal to inspection (L short leg .5in), Yes Lasegue's sign positive on the left, Yes pain with thoraco-lumbar ROM with forward flexion, with lateral flexion to the left and with rotation to the left, Yes paraspinal tenderness on the left greater than right (lumbopelvic), Yes thoraco-lumbar ROM limited with forward flexion, Yes thoraco-lumbar spasm on the left greater than right (lumbar paraspinal, QL), Yes straight leg raise positive left at 40 degrees and Yes misalignment L2, L3, L4, L5, RIL and LIL Sacroiliac joints: on the left tender to palpation Neuro General: patient alert, patient awake, patient oriented x3, gait normal, normal light touch, pain and propioception, no focal motor deficits and deep tendon reflexes 2+ bilaterally Cranial Nerves: CN's II-XI intact bilaterally Cognition: normal cognition Speech: speech normal Gait: normal gait Motor: muscle tone normal throughout Sensory Exam: no sensory deficits noted DTR's: Rt Patellar: 2+, Lt Patellar: 2+, Rt Ankle: 2+ and Lt Ankle: 2+ Ortho Test CERVICAL THORACIC LUMBAR Kemps: Negative Valsalvas: Positive (when acute) SLR: Pos (more content not included)... Normal [facility] Radiology Reporton Radiology Report [facility] [address] [place] [address] 05/24/24 1519 MR#: [id number] Acct: [id number] Name: KAVIN GUERRERO AKIKO Rep #: [id number] : 1975 49 From: Amita Grover D.C. PCP: Dr. Kingston Her MD Status:DEP AMB Location: [facility] X-Ray Report Impression Impression: Patients Name: KAVIN GUERRERO : 1975 Views Submitted: a routine lumbosacral series was accomplished on 05/24/24 at [facility]. The lumbar series reveals in the AP view right spinous process rotation from L3-L5. There is a 11.9mm leg length inequality on the left. There is posterior rotation of the left merly on sacrum. Sacrum is inferior on the left. Soft tissue structures are unremarkable. The lateral lumbar view demonstrates a mildly hypolordotic lumbar spine. The disc space is moderately reduced at L4/L5 and mildly decreased at L5/S1. Oblique views are normal with no indication of fracture or instability. IMPRESSION: 1. DDD of lumbar spine. Dictated by Performing Provider: Amita Grover Coding Level of Care Code Spine Lumbarsacral 4 views 05/24/24 1522 Date Amita Grover D.C. Signed Normal [facility] Office Visit Reporton 2023 Office Visit Report [facility] [address] [place] [place] [address] OFFICE VISIT Date of Service: 03/30/24 MR#: [id number] Acct: [id number] Patient: KAVIN GUERRERO AKIKO Rep #: [id number] : 1975 Provider: THA Ragsdale Age/Sex: 49/F Location: [facility] Status: Signed Intake Vital Signs 11/12/23 12:46 Height 5 ft 11 in Intake Visit Reasons: FLU SHOT/BMS EMP Chief Complaint: Poison natalie rash Allergies No Known Allergies Allergy (Verified 11/12/23 12:45) Nurse's Note: Patient received her flu shot today. Immunizations Flucelvax Triv (PF) 45 mcg (15 mcg x 3)/0.5 mL IM syringe Performing Provider: THA Nicole Performing Location: [facility] Administered by: Katarzyna Ingram MA on 03/30/24 07:56 Dose Route Admin Location Dispensed Lot Number Expiration Date [facility] Man ufacturer 0.5 mL IM Right Deltoid 0.5 mL [id number] 09/22/24 84842-486-19 [employer] VIS Given Date VIS Provided VIS Publication Date 03/30/24 Single Vaccine 24 Eligibility Eligibility Date Funding Source Not Applicable Assessment and Plan Assessment and Plan Orders: Orders Influenza Immunization Today Z23 - Encounter for immunization 03/30/24 0902 Date Cristobal ALMAZAN Cosigner Signature: Date (if applicable) CC: Normal [facility] Basophil percentageOrdered B y: Kingston Her on 06-30-2023 Chloride [Moles/Vol] 109 mmol/L 98-107 [facility] Glucose [Mass/Vol] 103 mg/dL 74-106 [facility] Comment on above: Fasting Glucose resu lt from 100 to 125 mg/dL suggests IMPAIRED HOMEOSTASIS per A.D.A. criteria. Potassium [Moles/Vol] 4.1 mmol/L 3.5-5.1 [facility] Sodium [Moles/Vol] 139 mmol/L 136-145 [facility] Laboratory - Chemistry and C hemistry - challengeOrdered By: Kingston Her on 06-30-2023 CO2 [Moles/Vol] 26.0 mmol/L 21.0-32.0 [facility] Urea nitrogen/Creatinine [Mass ratio] 16.3 mg/mg 10-20 [facility] No Panel InformationOrdered By: Kingston Her on 06-30-2023 Estimated GFR (MDRD) Amer 99 mL/min >60 [facility] Comment on above: GFR Calc Estimated GFR (MDRD) Non-Af Amer 82 mL/min >60 [facility] Comment on above: Non- GFR Calc Free Triiodothyronine (T3) pg/dL 2.5 pg/mL 2.18-3.98 [facility] Serum or plasma calcium jevon urement (mass/volume)Ordered By: Kingston Her on 06-30-2023 Calcium [Mass/Vol] 9.0 mg/dL 8.5-10.1 [facility] Serum or plasma creatinine m easurement (mass/volume)Ordered By: Kingston Her on 06-30-2023 Creatinine [Mass/Vol] 0.80 mg/dL 0.55-1.02 [facility] Comment on above: The validity of the calculated GFR & GFRAA in patients over 70 years has not been determined. Clinical correlation is essential. Serum or plasma thyroid stim ulating hormone (TSH) measurement (units/volume)Ordered By: Kingston Her on 06-30-2023 TSH Qn 0.66 uIU/mL 0.358-3.74 [facility] Serum or plasma urea nitroge n measurement (mass/volume)Ordered By: Kingston Her on 06-30-2023 Urea nitrogen [Mass/Vol] 13 mg/dL 7-18 [facility] Thin prep Papanicolaou smear with manual screeningOrdered By: Kingston Her on 06-30-2023 Thin prep Papanicolaou smear with manual screening 4 5-15 [facility] Thin prep Papanicolaou smear with manual screening 1.14 ng/dL 0.76-1.46 [facility] Absolute lymphocyte counton 01-28-2022 Lymphocytes Auto (Unsp spec) [#/Vol] 1.18 10*3/uL 0.83-4.51 [facility] Work Phone: Basophil percentageon 2021 Basophil percentage < 0.2 AI 0.0-0.9 [facility] Work Phone: Basophils/100 WBC (Bld) 0.9 % 0-1 [facility] Work Phone: Bilirubin [Mass/Vol] 0.20 mg/dL 0.20-1.00 [facility] Work Phone: Comment on above: For patients on eltr ombopag therapy, use of Dimension [employer] TBIL is not recommended. Chloride [Moles/Vol] 111 mmol/L 98-107 [facility] Work Phone: Cholesterol [Mass/Vol] 139 mg/dL <200 [facility] Work Phone: Comment on above: <200 mg/dL Desirable 200-240 mg/dL Borderline >240 mg/dL High Risk Eosinophils/100 WBC (Bld) 1.7 % 0-5 [facility] Work Phone: Glucose [Mass/Vol] 111 mg/dL 74-106 [facility] Work Phone: Comment on above: Fasting Glucose resu lt from 100 to 125 mg/dL suggests IMPAIRED HOMEOSTASIS per A.D.A. criteria. Neutrophils (Bld) [#/Vol] 2.8 10*3/uL 2.0-7.7 [facility] Work Phone: Neutrophils/100 WBC (Bld) 61.3 % 47-70 [facility] Work Phone: Potassium [Moles/Vol] 4.2 mmol/L 3.5-5.1 [facility] Work Phone: Protein [Mass/Vol] 7.2 g/dL 6.4-8.2 [facility] Work Phone: Sodium [Moles/Vol] 142 mmol/L 136-145 [facility] Work Phone: Triglyceride [Mass/Vol] 44 mg/dL <199 [facility] Work Phone: Comment on above: The drugs N-Acetylcy steine and Metamizole may falsely depress this assay.Serum Triglycerides Reference Interval Normal <150 mg/dL Borderline high 150 - 199 mg/dL High 200 - 499 mg/dL Very High > or = 500 mg/dL WBC (Bld) [#/Vol] 4.6 10*3/uL 4.4-11.0 [facility] Work Phone: Blood erythrocytes count (nu mber/volume)on 01-28-2022 RBC (Bld) [#/Vol] 4.13 10*6/uL 4.2-5.4 [facility] Work Phone: Blood hemoglobin measurement (mass/volume)on 01-28-2022 Hemoglobin (Bld) [Mass/Vol] 13.6 g/dL 12.0-15.0 [facility] Work Phone: Blood lymphocytes/100 leukoc yteson 01-28-2022 Lymphocytes/100 WBC (Bld) 25.7 % 19-41 [facility] Work Phone: Blood monocytes/100 leukocyt eson 01-28-2022 Monocytes/100 WBC (Bld) 10.2 % 0-10 [facility] Work Phone: Blood platelet mean volumeon 01-28-2022 Platelet mean volume (Bld) [Entitic vol] 10.9 fL 6.2-12.0 [facility] Work Phone: Determination of erythrocyte mean corpuscular volume (MCV)on 01-28-2022 MCV (RBC) [Entitic vol] 96.9 fL 81-99 [facility] Work Phone: Erythrocyte sedimentation ra clint 01-28-2022 ESR (Bld) [Velocity] 7 mm/h 0-30 [facility] Work Phone: Hematocrit Auto (Bld) [Volum e fraction]on 01-28-2022 Hematocrit (Bld) [Volume fraction] 40.0 % 37-47 [facility] Work Phone: Laboratory - Chemistry and C hemistry - challengeon 01-28-2022 ALP [Catalytic activity/Vol] 73 U/L 45-117 [facility] Work Phone: ALT [Catalytic activity/Vol] 27 U/L 13-56 [facility] Work Phone: CO2 [Moles/Vol] 25.0 mmol/L 21.0-32.0 [facility] Work Phone: Free T4 [Mass/Vol] 1.70 ng/dL 0.76-1.46 [facility] Work Phone: Globulin (S) [Mass/Vol] 3.9 g/dL 2.2-4.2 [facility] Work Phone: Urea nitrogen/Creatinine [Mass ratio] 23.9 mg/mg 10-20 [facility] Work Phone: Laboratory - Hematology and Cell countson 01-28-2022 Erythrocyte distribution width (RBC) [Entitic vol] 44.4 fL 35.1-43.9 [facility] Work Phone: Erythrocyte distribution width (RBC) [Ratio] 12.5 % 11.6-14.6 [facility] Work Phone: Immature granulocytes/100 WBC (Bld) 0.200 % 0.0-0.9 [facility] Work Phone: Comment on above: IG% - Immature Granu locytes (promyelocytes, myelocytes and metamyelocytes) > 1% indicates that a LEFT SHIFT is Present. MCH (RBC) [Entitic mass] 32.9 pg 27.0-32.0 [facility] Work Phone: Nucleated RBC/100 WBC (Bld) [Ratio] 0 % 0-5 [facility] Work Phone: MCHC Auto (RBC) [Mass/Vol]on 01-28-2022 MCHC (RBC) [Mass/Vol] 34.0 g/dL 32-36 [facility] Work Phone: No Panel Informationon 01-28 Urine Microalbumin/Creatinin e Ratio 5.9 mg/g CRE <30 [facility] Work Phone: Centromere B Antibody <0.2 AI 0.0-0.9 [facility] Work Phone: Endomysial IgA Antibody Negative Negative [facility] Work Phone: Estimated GFR (MDRD) Amer 107 mL/min >60 [facility] Work Phone: Comment on above: GFR Calc Estimated GFR (MDRD) Non-Af Amer 88 mL/min >60 [facility] Work Phone: Comment on above: Non- GFR Calc COURTESY CLERK Antibody <0.2 AI 0.0-0.9 [facility] Work Phone: Thyroid Stimulating Hormone (TSH) 0.04 uIU/mL 0.358-3.74 [facility] Work Phone: Platelets bldon 01-28-2022 Platelets (Bld) [#/Vol] 258 10*3/uL 150-450 [facility] Work Phone: Serum DNA double strand anti body assay (units/volume)on 01-28-2022 DNA double strand Ab Qn (S) 1 [IU]/mL 0-9 [facility] Work Phone: Comment on above: Negative <5 Equivoca l 5 - 9 Positive >9 Serum IgA measurement (units /volume)on 01-28-2022 IgA Qn (S) 171 mg/dL 87-352 [facility] Work Phone: Comment on above: Performed at: [address] [id number] Director: Sonido See PhD, Phone: [phone] Serum Shereen-1 antibody assay (u nits/volume)on 01-28-2022 Shereen-1 extractable nuclear Ab Qn (S) <0.2 AI 0.0-0.9 [facility] Work Phone: Serum Scl-70 extractable nuc lear antibody assay (units/volume)on 01-28-2022 SCL-70 extractable nuclear Ab Qn (S) <0.2 AI 0.0-0.9 [facility] Work Phone: Serum Her extractable nucl ear antibody detectionon 01-28-2022 Her extractable nuclear Ab Ql (S) <0.2 AI 0.0-0.9 [facility] Work Phone: Serum or plasma C reactive p rotein measurement (mass/volume)on 01-28-2022 CRP [Mass/Vol] 4.06 mg/L 0.0-3.0 [facility] Work Phone: Comment on above: C-Reactive Protein ( CRP) provides useful information for thediagnosis, therapy and monitoring of inflammatory processesand associated diseases. For the evaluation of Relative Riskfor Cardiovascular Disease, a High Sensitivity CRP (HSCRP)should be ordered. Serum or plasma albumin jevon urement (mass/volume)on 01-28-2022 Albumin [Mass/Vol] 3.3 g/dL 3.2-5.0 [facility] Work Phone: Serum or plasma albumin/glob ulin mass ratioon 01-28-2022 Albumin/Globulin [Mass ratio] 0.8 {ratio} 0.9-2.4 [facility] Work Phone: Serum or plasma calcium jevon urement (mass/volume)on 01-28-2022 Calcium [Mass/Vol] 8.8 mg/dL 8.5-10.1 [facility] Work Phone: Serum or plasma cholesterol in HDL measurement (mass/volume)on 01-28-2022 Cholesterol in HDL [Mass/Vol] 56 mg/dL >40 [facility] Work Phone: Comment on above: The drugs N-Acetylcy steine and Metamizole may falsely depress this assay. Reference Range HDL <40 mg/dL Low HDL Cholesterol HDL >or= 60 mg/dL High HDL Cholesterol Serum or plasma cholesterol in VLDL measurement (mass/volume)on 01-28-2022 Cholesterol in VLDL [Mass/Vol] 9 mg/dL 5-40 [facility] Work Phone: Serum or plasma creatinine m easurement (mass/volume)on 01-28-2022 Creatinine [Mass/Vol] 0.75 mg/dL 0.55-1.02 [facility] Work Phone: Comment on above: The validity of the calculated GFR & GFRAA in patients over 70 years has not been determined. Clinical correlation is essential. Serum or plasma low density lipoprotein (LDL) cholesterol measurement (mass/volume)on 01-28-2022 Cholesterol in LDL [Mass/Vol] 74 mg/dL 0-130 [facility] Work Phone: Serum or plasma urea nitroge n measurement (mass/volume)on 01-28-2022 Urea nitrogen [Mass/Vol] 18 mg/dL 7-18 [facility] Work Phone: Serum tissue transglutaminas e IgA antibody assay (units/volume)on 01-28-2022 tTG IgA Qn (S) <2 U/mL 0-3 [facility] Work Phone: Comment on above: Negative 0 - 3 Weak Positive 4 - 10 Positive >10 Tissue Transglutaminase (tTG) has been identified as the endomysial antigen. Studies have demonstr- ated that endomysial IgA antibodies have over 99% specificity for gluten sensitive enteropathy. Thin prep Papanicolaou smear with manual screeningon 01-28-2022 Thin prep Papanicolaou smear with manual screening 6.0 mg/L NO RANGE EST. [facility] Work Phone: Thin prep Papanicolaou smear with manual screening 16 U/L 15-37 [facility] Work Phone: Thin prep Papanicolaou smear with manual screening 6 5-15 [facility] Work Phone: Urine creatinine measurement (mass/volume)on 01-28-2022 Creatinine (U) [Mass/Vol] 101.00 mg/dL NO RANGE EST. [facility] Work Phone: Basophil percentageon 2021 Bilirubin [Mass/Vol] 0.30 mg/dL 0.20-1.00 [facility] Work Phone: Comment on above: For patients on eltr ombopag therapy, use of [employer]ension [employer] TBIL is not recommended. Chloride [Moles/Vol] 109 mmol/L 98-107 [facility] Work Phone: Glucose [Mass/Vol] 104 mg/dL 74-106 [facility] Work Phone: Comment on above: Fasting Glucose resu lt from 100 to 125 mg/dL suggests IMPAIRED HOMEOSTASIS per A.D.A. criteria. Potassium [Moles/Vol] 4.1 mmol/L 3.5-5.1 [facility] Work Phone: Protein [Mass/Vol] 7.1 g/dL 6.4-8.2 [facility] Work Phone: Sodium [Moles/Vol] 140 mmol/L 136-145 [facility] Work Phone: Laboratory - Chemistry and C hemistry - challengeon 07-31-2021 ALP [Catalytic activity/Vol] 73 U/L 45-117 [facility] Work Phone: ALT [Catalytic activity/Vol] 40 U/L 13-56 [facility] Work Phone: CO2 [Moles/Vol] 29.0 mmol/L 21.0-32.0 [facility] Work Phone: Free T4 [Mass/Vol] 1.29 ng/dL 0.76-1.46 [facility] Work Phone: Globulin (S) [Mass/Vol] 3.6 g/dL 2.2-4.2 [facility] Work Phone: Urea nitrogen/Creatinine [Mass ratio] 18.4 mg/mg 10-20 [facility] Work Phone: No Panel Informationon 07-31 Urine Microalbumin/Creatinin e Ratio 9.7 mg/g CRE <30 [facility] Work Phone: Estimated GFR (MDRD) Amer 115 mL/min >60 [facility] Work Phone: Comment on above: GFR Calc Estimated GFR (MDRD) Non-Af Amer 95 mL/min >60 [facility] Work Phone: Comment on above: Non- GFR Calc Thyroid Stimulating Hormone (TSH) 0.24 uIU/mL 0.358-3.74 [facility] Work Phone: Serum or plasma albumin jevon urement (mass/volume)on 07-31-2021 Albumin [Mass/Vol] 3.5 g/dL 3.2-5.0 [facility] Work Phone: Serum or plasma albumin/glob ulin mass ratioon 07-31-2021 Albumin/Globulin [Mass ratio] 1.0 {ratio} 0.9-2.4 [facility] Work Phone: Serum or plasma calcium jevon urement (mass/volume)on 07-31-2021 Calcium [Mass/Vol] 8.3 mg/dL 8.5-10.1 [facility] Work Phone: Serum or plasma creatinine m easurement (mass/volume)on 07-31-2021 Creatinine [Mass/Vol] 0.71 mg/dL 0.55-1.02 [facility] Work Phone: Comment on above: The validity of the calculated GFR & GFRAA in patients over 70 years has not been determined. Clinical correlation is essential. Serum or plasma urea nitroge n measurement (mass/volume)on 07-31-2021 Urea nitrogen [Mass/Vol] 13 mg/dL 7-18 [facility] Work Phone: Thin prep Papanicolaou smear with manual screeningon 07-31-2021 Thin prep Papanicolaou smear with manual screening 6.4 mg/L NO RANGE EST. [facility] Work Phone: Thin prep Papanicolaou smear with manual screening 20 U/L 15-37 [facility] Work Phone: Thin prep Papanicolaou smear with manual screening 2 5-15 [facility] Work Phone: Urine creatinine measurement (mass/volume)on 07-31-2021 Creatinine (U) [Mass/Vol] 65.90 mg/dL NO RANGE EST. [facility] Work Phone: Laboratory - Microbiology an d Antimicrobial susceptibilityon 05-18-2021 SARS-CoV-2 (COVID-19) RNA CATERINA+probe Ql (Unsp spec) Not detected [facility] Work Phone: Lab Report: PAP I-G HPV Hi R iskon 03-04-2017 HPV HC,HGH RISK Negative Invalid Interpretation Code Negative [facility] Lab Report: CT/NG [facility] BY PCR on 02-26-2017 Chlamydia trachomatis DNA [Presence] in Urine by Probe and target amplification method Negative Invalid Interpretation Code Negative [facility] Neisseria gonorrhoeae presence Negative Invalid Interpretation Code Negative [facility] Office Visit: est annualon 1 04-28-2016 Documentation of current medications (procedure) Done Invalid Interpretation Code [facility] Fall risk assessment No Invalid Interpretation Code [facility] Tobacco smoking status CAIS Never Invalid Interpretation Code [facility] Tobacco use [facility] Never smoker Invalid Interpretation Code [facility] Office Visit: UC: sinusitis, AU OM, pharyngitison 01-27-2017 Alcoholism counseling (procedure) no Invalid Interpretation Code [facility] Work Phone: Protein mass conc no Invalid Interpretation Code [facility] Work Phone: Tobacco smoking status NHIS Never smoker Invalid Interpretation Code [facility] Work Phone: Tobacco use [facility] Never smoker Invalid Interpretation Code [facility] Work Phone: Office Visit: est annualon 1 Breast Mammogram screening Normal Bilateral Invalid Interpretation Code [facility] Vital Signs Date Time Vital Sign Value Performing Clinician Facility 12-21-2024 09:21-0400 Body height 180.[address] Kingston Her MD Work Phone: [facility] 12-21-2024 09:14-0400 Body mass index (BMI) [Ratio] 29.9 kg/m2 Dr. Kingston Her MD Work Phone: [phone])064-292237 [place] [address] 12-21-2024 09:14-0400 Body weight 97.[address] Kingston Her MD Work Phone: [phone])160-481637 [place] [address] 12-21-2024 09:14-0400 Diastolic blood pressure 84 mm[Hg] Dr. Kingston Her MD Work Phone: 4(369)239-747137 [place] [address] 12-21-2024 09:14-0400 Systolic blood pressure 140 mm[Hg] Dr. Kingston Her MD Work Phone: 1(534)708-007737 [place] [address] 10-11-2024 07:01-0400 Body temperature 98.1 [degF] Dr. Kingston Her MD Work Phone: 1(866)085-987337 [place] [address] 10-11-2024 07:01-0400 Diastolic blood pressure 82 mm[Hg] Dr. Kingston Her MD Work Phone: 2([phone])[phone] [place] [address] 10-11-2024 07:01-0400 Heart rate 64 /min Dr. Kingston Her MD Work Phone: 0(645)371-145937 [place] [address] 10-11-2024 07:01-0400 Respiratory rate 16 /min Dr. Kingston Her MD Work Phone: 8(036)170-542937 [place] [address] 10-11-2024 07:01-0400 SaO2% (BldA) [Mass fraction] 97 % Dr. Kingston Her MD Work Phone: 6(098)669-821537 [place] [address] 10-11-2024 07:01-0400 Systolic blood pressure 122 mm[Hg] Dr. Kingston Her MD Work Phone: 2([phone])557-795137 [place] [address] 07-07-2024 08:41-0400 Diastolic blood pressure 78 mm[Hg] Dr. Kingston Her MD Work Phone: 7(545)446-793137 [place] [address] 07-07-2024 08:41-0400 Heart rate 70 /min Dr. Kingston Her MD Work Phone: 3([phone])452-891037 [place] [address] 07-07-2024 08:41-0400 Respiratory rate 14 /min Dr. Kingston Her MD Work Phone: 4([phone])345-323437 [place] [address] 07-07-2024 08:41-0400 SaO2% (BldA) [Mass fraction] 97 % Dr. Kingston Her MD Work Phone: [facility] 07-07-2024 08:41-0400 Systolic blood pressure 122 mm[Hg] Dr. Kingston Her MD Work Phone: [facility] 06-04-2024 15:32-0500 Body temperature 98.7 [degF] Dr. Kingston Her MD Work Phone: [facility] 06-04-2024 15:32-0500 Diastolic blood pressure 80 mm[Hg] Dr. Kingston Her MD Work Phone: [facility] 06-04-2024 15:32-0500 Heart rate 78 /min Dr. Kingston Her MD Work Phone: [facility] 06-04-2024 15:32-0500 SaO2% (BldA) [Mass fraction] 98 % Dr. Kingston Her MD Work Phone: [facility] 06-04-2024 15:32-0500 Systolic blood pressure 124 mm[Hg] Dr. Kingston Her MD Work Phone: [facility] 05-24-2024 13:10-0500 Body height 180.[address] Kingston Her MD Work Phone: [facility] 06-29-2021 06:25-0500 Body temperature 97.6 [degF] Dr. Kingston Her Work Phone: [facility] Work Phone: 06-29-2021 06:25-0500 Diastolic blood pressure 72 mm[Hg] Dr. Kingston Her Work Phone: [facility] Work Phone: 06-29-2021 06:25-0500 Heart rate 67 /min Dr. Kingston Her Work Phone: [facility] Work Phone: 06-29-2021 06:25-0500 Respiratory rate 16 /min Dr. Kingston Her Work Phone: [facility] Work Phone: 06-29-2021 06:25-0500 SaO2% (BldA) [Mass fraction] 100 % Dr. Kingston Her Work Phone: [facility] Work Phone: 06-29-2021 06:25-0500 Systolic blood pressure 120 mm[Hg] Dr. Kingston Her Work Phone: [facility] Work Phone: 06-29-2021 04:52-0500 Body height 180.[address] Kingston Her Work Phone: [facility] Work Phone: 06-29-2021 04:52-0500 Body mass index (BMI) [Ratio] 30.7 kg/m2 Dr. Kingston Her Work Phone: [facility] Work Phone: 06-29-2021 04:52-0500 Body weight 99.[address] Kingston Her Work Phone: [facility] Work Phone: 06-20-2021 11:29-0500 Body mass index (BMI) [Ratio] 30.9 kg/m2 Dr. Kingston Her Work Phone: [facility] Work Phone: 06-20-2021 11:29-0500 Body temperature 98.5 [degF] Dr. Kingston Her Work Phone: [facility] Work Phone: 06-20-2021 11:29-0500 Body weight 100.[address] Kingston Her Work Phone: [facility] Work Phone: 06-20-2021 11:29-0500 Diastolic blood pressure 84 mm[Hg] Dr. Kingston Her Work Phone: [facility] Work Phone: 06-20-2021 11:29-0500 Heart rate 77 /min Dr. Kingston Her Work Phone: [facility] Work Phone: 06-20-2021 11:29-0500 Respiratory rate 16 /min Dr. Kingston Her Work Phone: [facility] Work Phone: 06-20-2021 11:29-0500 SaO2% (BldA) [Mass fraction] 97 % Dr. Kingston Her Work Phone: [facility] Work Phone: 06-20-2021 11:29-0500 Systolic blood pressure 139 mm[Hg] Dr. 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 02-26-2017 08:03-0400 BP Systolic 148 mm[Hg] Migdalia Portillo NP [facility] 02-26-2017 08:03-0400 Height 180.34 cm Migdalia Portillo NP [facility] 02-26-2017 08:03-0400 Pulse (Heart Rate) 72 /min Migdalia Portillo NP [facility] 02-26-2017 08:03-0400 Respiratory Rate 16 /min Migdalia Portillo NP [facility] 02-26-2017 08:03-0400 Weight 89.99 kg Migdalia Portillo NP [facility] Encounters Encounter Date Encounter Type Care Provider Facility Start: 03-04-2025 ambulatory Kingston Her Facility:[facility] Start: 12-21-2024 End: 12-21-[address] 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 Kingston Her MD Work Phone: -[facility] Start: 12-21-2024 End: 12-21-2024 ambulatory Kingston Her Facility:[facility] Start: 11-01-2024 End: 11-01-[address] Kingston Her MD Work Phone: -Outpatient Breast Imaging Start: 11-01-2024 End: 11-01-2024 Patient encounter procedure Naty Roener [employer]ORED TRUCK DRIVER-C -Outpatient Breast Imaging Work Phone: Start: 11-01-2024 End: 11-01-2024 ambulatory Kingston Her Facility:[facility] Start: 10-11-2024 End: 10-11-2024 Patient encounter procedure Cristobal Valenzuela [facility] -[facility] Work Phone: Start: 10-11-2024 End: 10-11-[address] Kingston Her MD Work Phone: [facility] Work Phone: Start: 08-19-2024 End: 08-19-2024 Patient encounter procedure Sancho Peace PA -[facility] Work Phone: Start: 08-19-2024 End: 08-19-2024 ambulatory Kingston Her Facility:[facility] Start: 07-30-2024 End: 07-30-[address] Kingston Her MD Work Phone: [facility] Work Phone: Start: 07-30-2024 End: 07-30-2024 Patient encounter procedure Naty David ARMORED TRUCK DRIVER-C -Laboratory, [place] Work Phone: Start: 07-30-2024 End: 07-30-2024 ambulatory Naty David NP Facility:[facility] Start: 07-13-2024 ambulatory Kingston Her Facility:[facility] Start: 07-07-2024 End: 07-07-2024 Patient encounter procedure Cristobal Valenzuela PA -[facility] Work Phone: Start: 07-07-2024 End: 07-07-2024 ambulatory Kingston Her Facility:[facility] Start: 06-24-2024 End: 06-24-[address] Amita Grover DC -[facility] Work Phone: Start: 06-24-2024 End: 06-24-2024 ambulatory Kingston Her Facility:[facility] Start: 06-04-2024 End: 06-04-2024 Patient encounter procedure Sancho Peace PA -[facility] Work Phone: Start: 06-04-2024 End: 06-04-2024 ambulatory Kingston Her Facility:[facility] Start: 05-24-2024 ambulatory Kingston Her Facility:[facility] Start: 05-24-2024 Non-patient / Non-visit Dr. Amita Grover DC -[facility] Work Phone: Start: 05-24-2024 End: 05-24-[address] Amita Grover DC -[facility] Work Phone: Start: 05-24-2024 End: 05-24-2024 ambulatory Kingston Her Facility:[facility] Start: 03-30-2024 End: 03-30-2024 ambulatory Kingston Her Facility:[facility] Start: 06-30-2023 End: 06-30-[address] Kingston Her Work Phone: [facility] Work Phone: Start: 06-30-2023 End: 06-30-[address] Kingston Her Work Phone: [facility]-Laboratory, [facility] Start: 03-28-2023 End: 03-28-[address] Kingston Her Work Phone: [facility] Work Phone: Start: 03-25-2023 End: 03-25-[address] Kingston Her Work Phone: [facility] Work Phone: Start: 01-28-2022 End: 01-28-[address] Kingston Her Work Phone: [facility] Work Phone: Start: 01-28-2022 End: 01-28-[address] Kingston Her Work Phone: [facility]atory[facility] Start: 01-21-2022 End: 01-21-[address] Kingston Her Work Phone: [facility] Start: 09-19-2021 End: 09-19-[address] Kingston Her Work Phone: [facility]-Outpatient Breast Imaging Start: 07-31-2021 End: 07-31-[address] Kingston Her Work Phone: [facility]-Laboratory[facility] Start: 06-29-2021 Non-patient / Non-visit Dr. Kingston Her Work Phone: [facility] Start: 06-29-2021 End: 06-29-2021 Admission to same day surgery center Dr. Kingston Her Work Phone: [facility]-Endoscopy Start: 06-20-2021 End: 06-20-[address] Kingston Her Work Phone: [facility] Start: 05-18-2021 End: 05-18-[address] Kingston Her Work Phone: [facility] Start: 06-20-2016 End: 06-20-2016 Patient encounter procedure DAMIAN KING [facility] Procedures Date Procedure Procedure Detail Performing Clinician Start: 11-01-2024 Screening mammography Luca Her MD Work Phone: Start: 05-24-2024 X-ray of lumbosacral spine Dr. Kingston Her MD Work Phone: Start: 09-19-2021 Screening mammograph y of bilateral breasts Dr. Kingston Her Work Phone: Plan of Treatment Date Care Activity Detail Author Start: 01-28-2022 Gastrin [Mass/volume] in Serum or Plasma [facility] Work Phone: Start: 01-28-2022 IgE [Units/volume] in Serum or Plasma [facility] Work Phone: Start: 01-28-2022 Serum immunofixation [facility] Work Phone: Start: 01-28-2022 [facility] Work Phone: Start: 06-29-2021 Egd transoral biopsy single/multiple EGD BIOPSY SINGLE/MULTIPLE [facility] Work Phone: Start: 02-26-2017 End: 02-26-2017 *GC/Chlamydia *GC/Chlamydia [facility] Start: 02-26-2017 End: 02-26-2017 Mammogram, screening Mammogram, Screening, both breasts [facility] Start: 02-26-2017 End: 02-26-2017 Appointment Appointment [facility] Start: 01-27-2017 End: 01-27-2017 Appointment Appointment [facility] Work Phone: 5-Hydroxyindoleaceta te [Mass/volume] in 24 hour Urine [facility] Work Phone: Albumin [Moles/volum e] in Serum or Plasma [facility] Work Phone: Albumin/Globulin ratio [facility] Work Phone: Electrophoresis: [id number] [facility] Work Phone: Electrophoresis: [place] globulin [facility] Work Phone: Gastrin [Mass/volume ] in Serum or Plasma [facility] Work Phone: Globulin measurement [facility] Work Phone: IgA [Mass/volume] in Serum or Plasma [facility] Work Phone: IgE [Units/volume] i n Serum or Plasma [facility] Work Phone: IgG [Mass/volume] in Serum or Plasma [facility] Work Phone: IgM [Mass/volume] in Serum or Plasma [facility] Work Phone: Neutrophil cytoplasm ic Ab.classic [Units/volume] in Serum [facility] Work Phone: P-ANCA measurement [facility] Work Phone: Patient Education PHARYNGITIS [facility] Work Phone: Patient referral [facility] Work Phone: Protein electrophore sis panel - Serum or Plasma [facility] Work Phone: Serum protein electrophoresis [facility] Work Phone: US Renal artery [facility] Work Phone: Immunizations Immunization Date Immunization Notes Care Provider [facility] 03-30-2024 influenza, injectabl e, madin dianne canine kidney, preservative free Dr. Kingston Her MD Work Phone: [facility] 03-28-2023 influenza, injectabl e, quadrivalent, preservative free Dr. Kingston Her Work Phone: [facility] 01-25-2022 influenza, injectabl e, quadrivalent, preservative free Dr. Kingston Her Work Phone: [facility] 01-25-2022 influenza, seasonal, injectable Dr. Kingston Her Work Phone: [facility] Work Phone: 02-28-2021 Covid (Moderna) Dr. Kingston Claudio Work Phone: [facility] 02-20-2021 influenza, injectabl e, quadrivalent, preservative free Dr. Kingston Her Work Phone: [facility] 02-20-2021 influenza, seasonal, injectable Dr. Kingston Her Work Phone: [facility] Work Phone: 05-29-2020 Covid (Moderna) Dr. Kingston Claudio Work Phone: [facility] 05-01-2020 Covid (Moderna) Dr. Kingston Claudio Work Phone: [facility] 02-14-2020 influenza, injectabl e, quadrivalent, preservative free Dr. Kingston Her Work Phone: [facility] 02-14-2020 influenza, seasonal, injectable Dr. Kingston Her Work Phone: [facility] Work Phone: 03-10-2019 influenza, injectabl e, quadrivalent, preservative free Dr. Kingston Her Work Phone: [facility] 03-10-2019 influenza, seasonal, injectable Dr. Kingston Her Work Phone: [facility] Work Phone: 01-23-2018 influenza, injectabl e, quadrivalent, preservative free Dr. Kingston Her Work Phone: [facility] 01-23-2018 influenza, seasonal, injectable Dr. Kingston Her Work Phone: [facility] Work Phone: 02-24-2017 influenza, injectabl e, quadrivalent, preservative free Dr. Kingston Her Work Phone: [facility] 02-24-2017 influenza, seasonal, injectable Dr. Kingston Her Work Phone: [facility] Work Phone: 02-24-2017 measles, mumps and rubella virus vaccine Dr. Kingston Her Work Phone: [facility] 11-06-2016 measles, mumps and rubella virus vaccine Dr. Kingston Her Work Phone: [facility] Payers Date Payer Category Payer Unknown [id number] 2024 Self-pay [id number] Private Health Insurance A00 [id number] Unknown [id number] 2.16.8 [id number] Unknown [id number] 2.16.8 [id number] Unknown [id number] 2.16.8 [id number] Unknown [id number] 2.16.8 [id number] Unknown [id number] 2.16.8 [id number] Unknown [id number] 2.16.8 [id number] Unknown [id number] 2.16.8 [id number] Unknown [id number] 2.16.8 [id number] Unknown [id number] 2.16.8 [id number] Unknown [id number] 2.16.8 [id number] Unknown [id number] 2.16.8 [id number] Unknown [id number] 2.16.8 [id number] Unknown [id number] 2.16.8 [id number] Unknown [id number] 2.16.8 [id number] Unknown [id number] 2.16.8 [id number] Social History Date Type Detail Facility Start: 06-20-2021 End: 03-28-2023 Tobacco smoking status NHIS Unknown if ever smoked [facility] Start: 1975 Sex Assigned At Female [facility] Start: 05-24-2024 Tobacco smoking stat us CAIS Never smoked tobacco (finding) [facility] Start: 08-02-2024 Sex Female (finding) [facility] Goals Date Patient Goal Desired Activity /State Mental Status Date Assessment Result Facility 06-29-2021 Cognitive function Level Of Cons ciousness Awake;Drowsy [facility] Work Phone: 06-29-2021 Cognitive function Patient Orien tation Person;Place;Time [facility] Work Phone: Clinical Notes 05-24-2024 to 12-21-2024 Note Date & Type Note Facility 12-21-2024 Evaluation note Diagnosis Onset Date Resolution Abnormal uterine bleeding (AUB) chronic December 21 9:09am Possible exposure to STD noneactive December 21, 2024 9:09am Encounter for routine gynecological examination noneactive December 21 9:09am [facility] Work Phone: 1(401) 249-843506-16-2025 Progress [facility] [address], [address] [place] [address] OFFICE VISIT Date of Service: 10/11/24 MR#: [id number] Acct: [id number] Name: KAVIN GUERRERO Rep #: [id number] : 1975 Provider: THA Ragsdale Age/Sex: 49/F Location: [facility] Status: Signed Intake Vital Signs 05/24/24 13:10 10/11/24 07:01 Height 5 ft 11 in BP 122/82 H Position Sitting Respiration 16 Pulse 64 Temp 98.1 F Pulse Oximetry (%) 97 Oxygen Delivery Method room air Intake Visit Reasons: CONCERN FOR PINK EYE Accompanied by: Self Allergies No Known Allergies Allergy (Verified 10/11/24 07:00) Medications ?Medication ?Instructions ?Recorded ?Confirmed ?Type amlodipine 5 mg tablet 5 mg PO DAILY 01/17/2010/11 History levothyroxine 125 mcg tablet 175 mcg PO .every other d ay 06/20/21 10/11/24 History levothyroxine 200 mcg capsule 200 mcg PO .every other day 06/20/21 10/11/24 History quinapril 10 mg tablet 10 mg PO QHS 06/20/21 History indapamide 2.5 mg tablet 2.5 mg PO QAM 10/20/2310/11 History levonorgestrel-ethinyl estradiol 1 tab PO QDAY #84 tab s 10/20/23 10/11/24 Rx 0.1 mg-20 mcg tablet (Aviane) metoprolol succinate 50 mg 50 mg PO QHS 10/20/2310/11 History tablet,extended release 24 hr prednisone 10 mg tablet 10 mg PO DAILY #30 tabs 06/2610/11/24 Rx pseudoephedrine 60 mg-DM 15 1 tab PO Q4-6H PRN cold sy mptoms 09/30/24 10/11/24 Rx mg-guaifenesin 400 mg tablet #30 tabs (Capmist DM) tobramycin 0.3 % eye drops 1 drp ophthalmic (eye) Q2H #5 mL 10/11/24 10/11/24 Rx Nurse's Note: Patient left eye feels swollen and irritated. Patient was weeding whacking yesterday and she believes she got stuff in her eye. Patient denies any itching but she does have swelling and redness. [facility] Medical History Segmental dysfunction of lumbar region Wears glasses Alcohol use Thyroid disease Gastric reflux History of hiatal hernia Non-smoker Cardiology follow-up encounter Encounter for IUD removal Hypertension Hypothyroidism Surgical History s/p right leg surgery S/P laparoscopy History of cholecystectomy Family History Uncle Colon cancer Lung cancer Mother Diabetes Grandmother Diabetes Congestive heart failure Cancer skin CA Grandfather Diabetes Social History Smoking Status: Never smoker alcohol intake: current details: glass of wine nightly substance use type: does not use caffeine: Yes what type of physical activity do you participate in: none seatbelt use: always do you feel safe at home: Yes additional social history: - [facility] HPI HPI Details: KAVIN GUERRERO, is a 49 F who presents to the office today for initial evaluation new onset left eye conjunctival injection with exudate beginning last evening after having grass blow into left eye while weed-wacking her lawn. No vision changes or eye globe pain. No complaints of fever, chills, sweats, lightheadedness/dizziness, nausea/vomiting. No aiob-kuu-pbhrifo ophthalmic dropstried to assist. No other associated symptoms and no other alleviating/aggravating factors. ROS Const Constitutional: No other (As above) Exam Const General: cooperative, healthy appearing and no acute distress Orientation: alert, awake and oriented x3 HENMT Head: normal to inspection Ears: hearing grossly normal bilaterally and external ears normal Nose: external nose normal and no nasal discharge Eyes General: appearance normal, both eyes and all related structures Other: Except left conjunctival injection with exudate; negative limbus OU Neck Neck: normal visual inspection, no meningeal signs and supple Resp Effort & Inspection: normal respiratory effort and able to speak in complete sentences Cardio Rate: regular rate Pulses: radial pulses present Skin General: no rashes or lesions noted Neuro General: patient alert, patient awake and patient oriented x3 Cognition: normal cognition Speech: speech normal Psych Appearance: grossly normal Mental Status: mental status grossly normal Mood: congruent mood Affect: normal affect Speech and Movement: speech and movement normal Attitude: cooperative Diagnoses Acute conjunctivitis H10.30 Assessment and Plan Assessment and Plan (1) Acute conjunctivitis: Status: Acute Plan: Tobrex drops as prescribed today to affected eye(s). Supportive measures as instructed today. Work excuse offered/ declined. Follow-up with PCP or ophthalmology in 2 to 3 days should symptoms not improve,sooner should symptoms only worsen or any other concerns develop. Patient states acknowledging understanding all the above. Coding Level of Care Code Off vis,est,level 3 Assessment and Plan Assessment and Plan Medications: New tobramycin 0.3% to affected eye while awake first 24 hours, then 3x/day on days 2-5 1 drp ophthalmic (eye) Q2H 5 mL0RF Plan Details Goals & Barriers: Goals Decrease pain Improve ROM Decrease radiculopathy Target Due Date 06/25/24 Barriers Decreased disc height L4/L5,L5/S1 10/11/24 0715 s THA ALMAZAN> Date _ Cristobal ALMAZAN Cosigner Signature: Date (if applicable) CC: ~ [facility]06-16-2025 Progress note Author Cristobal Valenzuela [facility] Note Date/Time October 11, 2024 7:[address] [facility] [address], [address] [place] [address] OFFICE VISIT Date of Service: 10/11/24 MR#: [id number] Acct: [id number] Name: KAVIN GUERRERO AKIKO Rep #: [id number] : 1975 Provider: THA Ragsdale Age/Sex: 49/F Location: [facility] Status: Signed Intake Vital Signs 05/24/24 13:10 10/11/24 07:01 Height 5 ft 11 in BP 122/82 H Position Sitting Respiration 16 Pulse 64 Temp 98.1 F Pulse Oximetry (%) 97 Oxygen Delivery Method room air Intake Visit Reasons: CONCERN FOR PINK EYE Accompanied by: Self Allergies No Known Allergies Allergy (Verified 10/11/24 07:00) Medications ?Medication ?Instructions ?Recorded ?Confirmed ?Type amlodipine 5 mg tablet 5 mg PO DAILY 01/17/2010/11 History levothyroxine 125 mcg tablet 175 mcg PO .every other d ay 06/20/21 10/11/24 History levothyroxine 200 mcg capsule 200 mcg PO .every other day 06/20/21 10/11/24 History quinapril 10 mg tablet 10 mg PO QHS 06/20/21 History indapamide 2.5 mg tablet 2.5 mg PO QAM 10/20/2310/11 History levonorgestrel-ethinyl estradiol 1 tab PO QDAY #84 tab s 10/20/23 10/11/24 Rx 0.1 mg-20 mcg tablet (Aviane) metoprolol succinate 50 mg 50 mg PO QHS 10/20/2310/11 History tablet,extended release 24 hr prednisone 10 mg tablet 10 mg PO DAILY #30 tabs 06/2610/11/24 Rx pseudoephedrine 60 mg-DM 15 1 tab PO Q4-6H PRN cold sy mptoms 09/30/24 10/11/24 Rx mg-guaifenesin 400 mg tablet #30 tabs (Capmist DM) tobramycin 0.3 % eye drops 1 drp ophthalmic (eye) Q2H #5 mL 10/11/24 10/11/24 Rx Nurse's Note: Patient left eye feels swollen and irritated. Patient was weeding whacking yesterday and she believes she got stuff in her eye. Patient denies any itching but she does have swelling and redness. [facility] Medical History Segmental dysfunction of lumbar region Wears glasses Alcohol use Thyroid disease Gastric reflux History of hiatal hernia Non-smoker Cardiology follow-up encounter Encounter for IUD removal Hypertension Hypothyroidism Surgical History s/p right leg surgery S/P laparoscopy History of cholecystectomy Family History Uncle Colon cancer Lung cancer Mother Diabetes Grandmother Diabetes Congestive heart failure Cancer skin CA Grandfather Diabetes Social History Smoking Status: Never smoker alcohol intake: current details: glass of wine nightly substance use type: does not use caffeine: Yes what type of physical activity do you participate in: none seatbelt use: always do you feel safe at home: Yes additional social history: - [facility] HPI HPI Details: KAVIN GUERRERO, is a 49 F who presents to the office today for initial evaluation new onset left eye conjunctival injection with exudate beginning last evening after having grass blow into left eye while weed-wacking her lawn. No vision changes or eye globe pain. No complaints of fever, chills, sweats, lightheadedness/dizziness, nausea/vomiting. No vgbk-jyk-uzqsdzi ophthalmic dropstried to assist. No other associated symptoms and no other alleviating/aggravating factors. ROS Const Constitutional: No other (As above) Exam Const General: cooperative, healthy appearing and no acute distress Orientation: alert, awake and oriented x3 HENMT Head: normal to inspection Ears: hearing grossly normal bilaterally and external ears normal Nose: external nose normal and no nasal discharge Eyes General: appearance normal, both eyes and all related structures Other: Except left conjunctival injection with exudate; negative limbus OU Neck Neck: normal visual inspection, no meningeal signs and supple Resp Effort & Inspection: normal respiratory effort and able to speak in complete sentences Cardio Rate: regular rate Pulses: radial pulses present Skin General: no rashes or lesions noted Neuro General: patient alert, patient awake and patient oriented x3 Cognition: normal cognition Speech: speech normal Psych Appearance: grossly normal Mental Status: mental status grossly normal Mood: congruent mood Affect: normal affect Speech and Movement: speech and movement normal Attitude: cooperative Diagnoses Acute conjunctivitis H10.30 Assessment and Plan Assessment and Plan (1) Acute conjunctivitis: Status: Acute Plan: Tobrex drops as prescribed today to affected eye(s). Supportive measures as instructed today. Work excuse offered/ declined. Follow-up with PCP or ophthalmology in 2 to 3 days should symptoms not improve,sooner should symptoms only worsen or any other concerns develop. Patient states acknowledging understanding all the above. Coding Level of Care Code Off vis,est,level 3 Assessment and Plan Assessment and Plan Medications: New tobramycin 0.3% to affected eye while awake first 24 hours, then 3x/day on days 2-5 1 drp ophthalmic (eye) Q2H 5 mL 0RF Plan Details Goals & Barriers: Goals Decrease pain Improve ROM Decrease radiculopathy Target Due Date 06/25/24 Barriers Decreased disc height L4/L5,L5/S1 10/11/24 0715 <Electronically signed by Cristobal ALMAZAN> Date _ Cristobal ALMAZAN Cosigner Signature: Date (if applicable) CC: ~ [facility] Work Phone: 1(172) 519-893304-24-2025 Evaluation note* Diagnosis Onset Date Resolution Status Admit Date Irritant contact dermatitis due to plant acute August 19, 2024 5:19pm [facility] Work Phone: 1(612) 392-167302-27-2025 Evaluation note* Diagnosis Onset Date Resolution Status Admit Date Segmental and somatic dysfunction of pelvic region acute Feb 2024 12:24pm Segmental and somatic dysfunction of thoracic region acute June 24 025 12:24pm Segmental dysfunction of lumbar region acute June 24 12:24pm DDD (degenerative disc disease), lumbosacral chronic May 302024 12:24pm Irritant contact dermatitis due to plant acute August 19, 2024 5:19pm [facility] [facility] Work Phone: [phone] Evaluation note* Diagnosis Onset Date Resolution Status Admit Date Segmental and somatic dysfunction of pelvic region acute Andrea [id number] 1:03pm Segmental dysfunction of lumbar region acute May 24 1:03pm DDD (degenerative disc disease), lumbosacral chronic May 242024 1:03pm Headache noneactive June 04, 2024 3:26pm Segmental and somatic dysfunction of pelvic region acute Feb ruary 2024 12:24pm Segmental and somatic dysfunction of thoracic region acute June 24 025 12:24pm Segmental dysfunction of lumbar region acute June 24 12:24pm DDD (degenerative disc disease), lumbosacral chronic May 302024 12:24pm [facility] Work Phone: Chief complaint+Reason for visit Narrative* Chief Complaint COVID-19 Gastroesophageal reflux disease (GERD) Reason for Visit Screening for intest inal cancer [facility] Work Phone: Evaluation note* Diagnosis Onset Date Resolution Status Screening for intestinal cancer acute [facility] Work Phone: Evaluation note* Diagnosis Onset Date Resolution Status Overweight chronic [facility] Work Phone: Evaluation note* Diagnosis Onset Date Resolution Status Contraception management acu te [facility] Work Phone: Evaluation note* Diagnosis Onset Date Resolution Status Admit Date Encounter for routine gynecological examination noneactive December 21, 2024 9:09am [facility] Work Phone: Reason for referral (narrative)No reason for referral [facility] Work [facility]: Summary Purpose Family History No Family History Records Found Relationship Condition Age at Onset Recorded Date/T alexandre uncle Malignant neoplasm of colon Unknown Malignant neoplasm of lung Unknown mother Diabetes mellitus Unknown grandmother Diabetes mellitus Unknown Congestive heart failure Unknown Malignant neoplasm Unknown grandfather Diabetes mellitus Unknown Advance Directives No Advanced Directives Records Found Advance Directive Response Recorded Date/ Time Living Will No June 25, 019 1:53pm Power of Aed Trainer No June 25, 2018 1:53pm Advance Directive Response Recorded Date/ Time Living Will No June 25 019 12:53pm Power of Aed Trainer No June 25, 2018 12:53pm Chief Complaint and Reason for Visit Chief Complaint Gastroesophageal ref lux disease (GERD) SCREENING Reason for Visit Screening for intest inal cancer Chief Complaint WEIGHT LOSS Reason for Visit Overweight Chief Complaint Removal FLU VACCINE Reason for Visit Contraception manage ment Chief Complaint Admit Date EST CARE May 24, 2024 1 :03pm xray May 24, 2024 1 :11pm Headache June 04, 2024 3 :26pm BACK PAIN June 24, 2024 12:24pm RASH ALL OVER BODY July 07, 2024 8:4 0am EORDER July 30, 2024 8:41 am Reason for Visit Admit Date Segmental and somatic dysfunction of pel latha region May 24, 2024 1:03pm Segmental dysfunction of lumbar region J anuary 2024 1:03pm DDD (degenerative disc disease), lumbosa cral May 24, 2024 1:03pm Headache June 04, 2024 3 :26pm Segmental and somatic dysfunction of pel latha region June 24, 2024 12:24pm Segmental and somatic dysfunction of tho racic region June 24, 2024 12:24pm Segmental dysfunction of lumbar region F ebruary 2024 12:24pm DDD (degenerative disc disease), lumbosa cral June 24, 2024 12:24pm Chief Complaint Admit Date BACK PAIN June 24, 2024 12:24pm RASH ALL OVER BODY July 07, 2024 8:4 0am EORDER July 30, 2024 8:41 am POISON NATALIE August 19, 2024 5:1 9pm CONCERN FOR PINK EYE October 11, 2024 6:5 9am Reason for Visit Admit Date Segmental and somatic dysfunction of pel latha region June 24, 2024 12:24pm Segmental and somatic dysfunction of tho racic region June 24, 2024 12:24pm Segmental dysfunction of lumbar region F ebruary 2024 12:24pm DDD (degenerative disc disease), lumbosa cral June 24, 2024 12:24pm Irritant contact dermatitis due to plant August 19, 2024 5:19pm Chief Complaint Admit Date RASH ALL OVER BODY July 07, 2024 8:4 0am EORDER July 30, 2024 8:41 am POISON NATALIE August 19, 2024 5:1 9pm CONCERN FOR PINK EYE October 11, 2024 6:5 9am SCREENING November 01, 2024 11:36 am Reason for Visit Admit Date Irritant contact dermatitis due to plant August 19, 2024 5:19pm Chief Complaint Admit Date CONCERN FOR PINK EYE October 11, 2024 6:5 9am SCREENING November 01, 2024 11:36 am 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 21, 2024 9: 09am Reason for Visit Admit Date Encounter for routine gynecological exam ination December 21, 2024 9:09am Reason for Visit Admit Date Abnormal uterine bleeding (AUB) November 272024 9:09am Possible exposure to STD December 21 9:09am Encounter for routine gynecological exam ination December 21, 2024 9:09am Additional Source Comments INFORMATION SOURCE (unrecogn ized section and content) DATE CREATED AUTHOR 04/17/2018 [facility] DATE CREATED AUTHOR AUTHOR'S ORGANIZ ATION 03/05/2025 [facility] Goals (unrecognized section and content) Goals may be documented in a n alternate sectionGoals may be documented in an alternate sectionGoals may be documented in an alternate sectionGoals may be documented in an alternate sectionGoals may be documented in an alternate section Care Teams (unrecognized sec tion and content) Team Status: Active Member Role Status Dates Dr. Kingston Her MD Family Provider Active Dr. Kingston Her MD Primary Care Provider Active Team Status: Inactive Member Role Status Dates Dr. Kingston Her MD Primary Care Provider, Referring P rovider Active Dr. Ab Blankenship MD Attending Provider Active Team Status: Inactive Member Role Status Dates Dr. Kingston Her MD Primary Care Provider, Referring P rovider Active Sancho ALMAZAN PA Attending Provider Active Team Status: Inactive Member Role Status Dates Dr. Kingston Her MD Primary Care Provide r, Attending Provider, Referring Provider Active Team Status: Inactive Member Role Status Dates Dr. Kingston Her MD Primary Care Provider Active Start: May 24, 2024 End: May 24, 2024 Dr. Kingston Her MD Referring Provider Active St art: May 24, 2024 End: May 24, 2024 Dr. Amita Grover DC Attending Provider Active S tart: May 24, 2024 End: May 24, 2024 Team Status: Inactive Member Role Status Dates Dr. Kingston Her MD Primary Care Provider Active Start: May 24, 2024 End: May 24, 2024 Dr. Gabriel Palmer MD Attending Provider Active S tart: May 24, 2024 End: May 24, 2024 Team Status: Active Member Role Status Dates Dr. Kingston Her MD Primary Care Provider Active Start: May 24, 2024 Dr. Kingston Her MD Referring Provider Active St art: May 24, 2024 Dr. Amita Grover DC Attending Provider Active S tart: May 24, 2024 Team Status: Inactive Member Role Status Dates Dr. Kingston Her MD Primary Care Provider Active Start: June 04, 2024 End: June 04, 2024 Dr. Kingston Her MD Referring Provider Active St art: June 04, 2024 End: June 04, 2024 THA Chan Attending Provider Active Sta rt: June 04, 2024 End: June 04, 2024 Team Status: Inactive Member Role Status Dates Dr. Kingston Her MD Primary Care Provider Active Start: June 24, 2024 End: June 24, 2024 Dr. Kingston Her MD Referring Provider Active St art: June 24, 2024 End: June 24, 2024 Dr. Amita Grover DC Attending Provider Active S tart: June 24, 2024 End: June 24, 2024 Team Status: Inactive Member Role Status Dates Dr. Kingston Her MD Primary Care Provider Active Start: July 07, 2024 End: July 07, 2024 Dr. Kingston Her MD Referring Provider Active St art: July 07, 2024 End: July 07, 2024 Cristobal ALMAZAN PA Attending Provider Active Start: July 07, 2024 End: July 07, 2024 Team Status: Inactive Member Role Status Dates Dr. Kingston Her MD Primary Care Provider Active Start: July 30, 2024 End: July 30, 2024 Naty David ARMORED TRUCK DRIVER, ARMORED TRUCK DRIVER-C Attending Provider Active S tart: July 30, 2024 End: July 30, 2024 Naty David ARMORED TRUCK DRIVER, ARMORED TRUCK DRIVER-C Referring Provider Active S tart: July 30, 2024 End: July 30, 2024 Team Status: Inactive Member Role Status Dates Dr. Kingston Her MD Primary Care Provider Active Start: August 19, 2024 End: August 19, 2024 Dr. Kingston Her MD Referring Provider Active St art: August 19, 2024 End: August 19, 2024 Sancho ALMAZAN PA Attending Provider Active Sta rt: August 19, 2024 End: August 19, 2024 Team Status: Inactive Member Role Status Dates Dr. Kingston Her MD Primary Care Provider Active Start: October 11, 2024 End: October 11, 2024 Dr. Kingston Her MD Referring Provider Active St art: October 11, 2024 End: October 11, 2024 Cristobal ALMAZAN, PA Attending Provider Active Start: October 11, 2024 End: October 11, 2024 Team Status: Active Member Role/Relationship Status Dates Dr. Kingston Her MD Primary Care Provider Active Team Status: Inactive Member Role/Relationship Status Dates Dr. Kingston Her MD Primary Care Provider Active Start: July 07, 2024 End: July 07, 2024 Dr. Kingston Her MD Referring Provider Active St art: July 07, 2024 End: July 07, 2024 Cristobal ALMAZAN, PA Attending Provider Active Start: July 07, 2024 End: July 07, 2024 Team Status: Inactive Member Role/Relationship Status Dates Dr. Kingston Her MD Primary Care Provider Active Start: July 30, 2024 End: July 30, 2024 Naty David ARMORED TRUCK DRIVER, ARMORED TRUCK DRIVER-C Attending Provider Active S tart: July 30, 2024 End: July 30, 2024 Naty David ARMORED TRUCK DRIVER, ARMORED TRUCK DRIVER-C Referring Provider Active S tart: July 30, 2024 End: July 30, 2024 Team Status: Inactive Member Role/Relationship Status Dates Dr. Kingston Her MD Primary Care Provider Active Start: August 19, 2024 End: August 19, 2024 Dr. Kingston Her MD Referring Provider Active St art: August 19, 2024 End: August 19, 2024 Sancho ALMAZAN, PA Attending Provider Active Sta rt: August 19, 2024 End: August 19, 2024 Team Status: Inactive Member Role/Relationship Status Dates Dr. Kingston Her MD Primary Care Provider Active Start: October 11, 2024 End: October 11, 2024 Dr. Kingston Her MD Referring Provider Active St art: October 11, 2024 End: October 11, 2024 Cristobal ALMAZAN, PA Attending Provider Active Start: October 11, 2024 End: October 11, 2024 Team Status: Inactive Member Role/Relationship Status Dates Dr. 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 Kingston Her MD Primary Care Provider Active Start: October 11, 2024 End: October 11, 2024 Dr. Kingston Her MD Referring Provider Active St art: October 11, 2024 End: October 11, 2024 Cristobal ALMAZAN, PA Attending Provider Active Start: October 11, 2024 End: October 11, 2024 Team Status: Inactive Member Role/Relationship Status Dates Dr. Kingston Her MD Primary Care Provider Active Start: November 01, 2024 End: November 01, 2024 Naty David NP, ARMORED TRUCK DRIVER-C Attending Provider Active S tart: November 01, 2024 End: November 01, 2024 Naty David NP, ARMORED TRUCK DRIVER-C Referring Provider Active S tart: November 01, 2024 End: November 01, 2024 Team Status: Inactive Member Role/Relationship Status Dates Dr. Kingston Her MD Primary Care Provider Active Start: December 21, 2024 End: December 21, 2024 Dr. Kingston Her MD Referring Provider Active St art: December 21, 2024 End: December 21, 2024 Migdalia Portillo NP, ARMORED TRUCK DRIVER-C Attending Provider Active Start: December 21, 2024 End: December 21, 2024 Team Status: Inactive Member Role/Relationship Status Dates Dr. Kingston Her MD Primary Care Provider Active Start: December 21, 2024 End: December 21, 2024 Migdalia Portillo NP, ARMORED TRUCK DRIVER-C Attending Provider Active Start: December 21, 2024 End: December 21, 2024 FOR RECORDS PERTAINING TO PATIENTS WHO ARE [...] BE BASED ON THE PRIMARY CLINICAL RECORDS. [employer] [facility]. provides no warranty or guarantee of the accuracy or completeness of information in this document.
[2025-03-09 10:18] LABS: Hematocrit 40.7 % (37-47); Hemoglobin 13.8 g/dL (12.0-15.0); Immature Granulocytes Count 0.030 X10^3/uL (0.0-0.0); Mean Corp Hgb Conc 33.9 g/dL (32-36); Mean Corpuscular Volume 92.5 fL (81-99); Mean Platelet Vol. 10.6 fl (6.2-12.0); NRBC Flagged by Analyzer 0 % (0-5); Platelet Count 285 K/mm3 (150-450); RBC Distribution Width CV 12.7 % (11.6-14.6); RBC Distribution Width SD 43.3 fl (35.1-43.9); Red Blood Count 4.40 M/mm3 (4.2-5.4); White Blood Count 6.7 K/mm3 (4.4-11.0)
[2025-03-09 10:52] LABS: Creatinine, Urine (random) 315.00 mg/dL (28.00-217.00); Microalbumin,Random Urine 18.3 mg/L (<20 mg/L)
[2025-03-09 10:55] LABS: FOLATES,SERUM (FOLIC ACID) 6.33 ng/mL (4.60-34.80)
[2025-03-09 11:02] LABS: AST(SGOT) 41 U/L (<=31); Alanine Aminotransfer ALT/SGPT 35 U/L (<=34); Albumin, Serum 4.3 g/dL (3.5-5.0); Alkaline Phosphatase 48 U/L (35-104); Anion Gap 13 (5-15); BUN 16 mg/dL (4-19); BUN/Creat Ratio 19.0 RATIO (10-20); Calcium,Total 9.4 mg/dL (7.6-11.0); Carbon Dioxide 24.0 mmol/L (21.0-32.0); Chloride 103 mmol/L (98-108); Globulin 3.2 g/dL (2.2-4.2); Glucose 98 mg/dL (70-99); Potassium 3.6 mmol/L (3.3-5.1)
[2025-03-09 11:05] LABS: Follicle Stimulating Hormone 22.5 mIU/mL; Vitamin B12 160 pg/mL (180-914)
[2025-03-14 12:08] LABS: Testosterone, % Free 2.12 % (0.50-2.80); Testosterone, Free 0.08 ng/dL (0.10-0.85)
== END | disposition home or self-care (01) ==
LOC: MTLAB 07:11
PROVIDERS: PCP Family Medicine; Referring Provider Family Medicine; Visit Provider Family Medicine
DX: E03.9 Hypothyroidism, unspecified (principal); L65.9 Nonscarring hair loss, unspecified; N95.1 Menopausal and female climacteric states; I10 Essential (primary) hypertension
CPT/HCPCS: 36415; 80053; 82043; 82570; 82607; 82670; 82746; 83001; 83002; 84402; 84403; 84443; 85025